=== PATIENT | male | born 1945 | race Caucasian/White ===

== ENCOUNTER → 2018-03-12 06:06 | Outpatient (CLI) | payer MEDICARE, BC, SELFPAY ==
--- NOTE | 2018-03-12 06:09 | ECHOD_ITS ---
Reason For Study: CAD Procedure This was a 2D Doppler, Color Flow transthoracic echocardiogram. Exam performed in department. Left Ventricle Normal LV size. The estimated ejection fraction is 35 %. Moderate segmental systolic dysfunction (see wall motion). Mid-Inferior: Akinetic. Infero-Basal: Akinetic. Posterior-Basal: Hypokinetic. Basal inferoseptal: Akinetic. Mid-inferoseptal : Hypokinetic. Inferior [place] : Akinetic. Right Ventricle Normal RV size. ICD or pacer leads identified within the right ventricle. Normal systolic function. Atria The left atrium is mildly enlarged. Normal right atrium. Mitral Valve There is mild to moderate mitral annular calcification. Mild focal mitral valve calcification. Mild (1+) eccentric mitral valve insufficiency. Tricuspid Valve Normal tricuspid valve. Mild (1+) tricuspid valve insufficiency. Pulmonary artery systolic pressure is 23 mmHg. Aortic Valve Normal aortic valve. Trisinus/trileaflet aortic valve. Pulmonic Valve Normal pulmonic valve. Great Vessels Normal aortic root. The pulmonary artery is normal size. Normal inferior vena cava. Pericardium/Pleural No pericardial effusion. MMode/2D Measurements & Calculations LVIDd: 5.5 cm IVSd: 1.2 cm Ao root diam: 3.0 cm LVIDs: 4.6 cm LVPWd: 0.72 cm LA dimension: 3.5 cm RVDd: 3.6 cm FS: 15.8 % LAV(MOD-bp): 71.6 ml EDV(MOD-sp4): 152.6 ml EDV(MOD-sp2): 129.1 ml LAV(MOD-bp) Indexed: 35.0 ml/m2 ESV(MOD-sp4): 89.2 ml EF(MOD-sp2): 9.5 % LAV(MOD-sp2): 57.4 ml EF(MOD-sp4): 41.5 % LAV(MOD-sp4): 76.8 ml SV(MOD-sp4): 63.3 ml SV(MOD-sp2): 12.3 ml LA A4 area: 23.8 cm2 RA A4 area: 20.4 cm2 Doppler Measurements & Calculations MV E max evan: 84.5 cm/sec Lat Peak E' Evan: 5.4 cm/sec Med Peak E' Evan: 5.9 cm/sec MV A max evan: 121.4 cm/sec E/E' lat: 15.7 E/E' med: 14.2 MV E/A: 0.70 Ao V2 max: 144.0 cm/sec LV V1 max: 119.4 cm/sec PA V2 max: 161.6 cm/sec Ao max P.3 mmHg LV V1 max P.7 mmHg TR max evan: 215.5 cm/sec TR max P.6 mmHg Interpretation Summary Normal LV size. The estimated ejection fraction is 35 %. Moderate segmental systolic dysfunction (see wall motion). The left atrium is mildly enlarged. Mild (1+) tricuspid valve insufficiency. Pulmonary artery systolic pressure is 23 mmHg. Compared to prior study, there is no significant change. Ordering Physician: Elias Parrish Referring Physician: Krissy Hussein M.D. Performed By: Miguelina Marie RDCS
--- NOTE | 2018-03-12 09:49 | STRESSREP ---
Stress Test Report Pharmacologic myocardial perfusion stress test. 73-year-old man with a history of coronary artery disease and cardiomyopathy status post ICD. Medications Coreg aspirin atorvastatin and lisinopril. Stress protocol: Resting EKG demonstrates sinus rhythm with a rate of 63 bpm first-degree AV block and incomplete right bundle branch block noted. 0.4 mg of regadenoson was infused per usual protocol followed by rapid intravenous and flush injection continuous EKG monitoring was performed. Patient maintained sinus rhythm throughout the recording. The maximum heart rate attained was 77 bpm which was 51% maximum predicted heart rate the maximum workload attained was 1 metabolic equivalent. At rest there were no ST or T-wave changes noted suggest abnormal flow reserve at peak infusion no ST or T-wave changes were noted suggest abnormal flow reserve. No clinical angina was noted. The resting blood pressure is 134/82 with a final blood pressure 142/80. Myocardial perfusion protocol. 11.9 mCi of technetium 99m sestamibi was injected at rest. 0.4 mg regadenoson was infused per usual protocol peak infusion 34.2 mCi of technetium 99m sestamibi was injected stress images were obtained stress and rest images were reconstructed and compared in the short axis vertical long and horizontal long axis. Gated images were also obtained Perfusion SPECT analysis: Review of the stress images demonstrate a dilated cardiac silhouette size. The anterior septum the anterior wall and anterolateral wall appear to be well perfused there is an extensive perfusion defect involving the entire inferior wall and inferior apical wall and inferior lateral wall. This is present on the stress and resting images to a similar extent suggesting a previous extensive inferior inferolateral and septal infarct. No reversibility is noted suggest ischemia. Gated SPECT analysis: The gated ejection fraction is 34% with severe hypokinesis of the inferior wall. Conclusion: Ischemic cardiomyopathy. Extensive previous inferior inferoseptal apical and lateral infarct noted. No ischemia noted.
== END ==
PROVIDERS: Family Provider Internal Medicine; PCP Internal Medicine; Visit Provider Internal Medicine Cardiovascular Disease
DX: I25.10 Atherosclerotic heart disease of native coronary artery without angina pectoris (principal); I25.5 Ischemic cardiomyopathy
CPT/HCPCS: 78452; 93017; 93306; A9500; A4216; J2785

== ENCOUNTER 2018-10-19 09:22 | Emergency (ER) | payer MEDICARE, BC, SELFPAY ==
[2018-10-19 09:25] VITALS: BP 155/84; PULSE 60; RESP 14; TEMP 36.1; O2SAT 98; BMI 28.4
--- NOTE | 2018-10-19 09:39 | ED.VISSUMM ---
- ER Visit Summary Date of Service: 10/19/18 Chief Complaint: Possible defibrillation firing History of Present Illness: The patient is a 73 M who presents with his defibrillator firing this morning. Patient states he was sitting on the edge of his bed this morning. Patient states he was feeling lightheaded and weird. Patient states he remembers waking up on the floor and his body was turned the other way. states the patient was diaphoretic when she went to get him off the floor. Patient denies any chest pain. Patient denies any shortness of breath. Patient denies any symptoms at the present time. Patient states that he called Dr. Parrish who referred him to the emergency department. Physical Examination: Vital signs are stable. Patient is afebrile. Patient is in no acute distress. Oral mucosa is pink and moist. Neck is supple. Trachea is midline. There is no JVD noted. Heart was regular rate and rhythm. Lungs are clear and equal bilaterally. There is good respiratory effort noted. Abdomen is soft. Bowel sounds are normal. There is no tenderness. Cranial nerves II through XII are intact. There are no focal motor or sensory deficits noted. The remaining physical exam was within normal limits. Test Results: CBC was essentially within normal limits. Electrolytes were normal. BUN and creatinine were slightly elevated at 21.45. Troponin was normal at 0.022. PA and lateral chest x-ray does not show any acute cardiopulmonary process. EKG showed a paced rhythm with a rate of 55. There is a first-degree AV block. There are no acute ST or T wave changes. Emergency Department Course and Treatment: Patient denied any complaints during his emergency department stay. The report from [place] was faxed and showed a run of V. tach at 197 and the patient had antitachycardia pacing delivered which converted the arrhythmia. The patient did not receive any defibrillation. Case was discussed with Dr. Parrish. He will follow-up with the patient and his office. Patient understood and was agreeable with the plan. All questions were answered. Disposition: Discharged home Impression: 1. Syncope 2. Cardiac dysrhythmia This note was generated with [employer] software. It may contain incorrect words, spelling, and punctuation that were not noted in review of the chart prior to signing ED Disposition - Plan for ED Patient: Disposition: Home or Assisted Living Chief Complaint: Chest Other Diagnosis: Cardiac dysrhythmia, Syncope Instructions: ED Dysrhythmia Unspecified Referrals: Krissy Hussein MD [Primary Care Provider] - Elias Parrish MD [STAFF PHYSICIAN] -
--- NOTE | 2018-10-19 09:43 | EKG12_ITS ---
Test Reason : CHEST OTHER Blood Pressure : / mmHG Vent. Rate : 055 BPM Atrial Rate : 055 BPM P-R Int : 374 ms QRS Dur : 146 ms QT Int : 426 ms P-R-T Axes : 000 012 202 degrees QTc Int : 407 ms AV dual-paced rhythm with prolonged AV conduction with occasional atrial-paced complexes Abnormal ECG Confirmed by NICOLE MIGUEL, MARY ALICE ([id number]), videotape editor THANG SOLIS ([id number]) on 10/22/2018 10:23:37 AM Referred By: ISIS Confirmed By:MARY ALICE RIVERA MD
--- NOTE | 2018-10-19 09:43 | RAD_ITS ---
STUDY: X-RAY CHEST REASON FOR EXAM: Male, 73 years old. Chest pain. TECHNIQUE: PA and lateral views of the chest. COMPARISON: Comparison is made with prior study dated August 24, 2017. FINDINGS: Limited inspiratory effort. Mild increased markings at the lung bases most likely secondary to impaired aeration. There is no demonstrated pleural abnormality. There is mild cardiac enlargement. A left-sided ICD is seen. Normal mediastinum and bee. Normal visualized pulmonary arteries. There is atherosclerotic calcification of the aortic arch with tortuosity. There are degenerative changes of the visualized thoracic spine. Normal visualized ribs, clavicles, and shoulders. There is no demonstrated abnormality of the visualized soft tissue structures of the upper abdomen. RAD/Chest PA and Lateral IMPRESSION: And penetration at both lung bases most likely secondary to poor inspiration. Electronically Signed: Jules Baer MD at 10:20 EST Tel [phone], Service support ,
--- NOTE | 2018-10-19 09:43 | ED.DCSUM_ITS ---
- ER Visit Summary Date of Service: 10/19/18 Chief Complaint: Possible defibrillation firing History of Present Illness: The patient is a 73 M who presents with his defibrillator firing this morning. Patient states he was sitting on the edge of his bed this morning. Patient states he was feeling lightheaded and weird. Patient states he remembers waking up on the floor and his body was turned the other way. states the patient was diaphoretic when she went to get him off the floor. Patient denies any chest pain. Patient denies any shortness of breath. Patient denies any symptoms at the present time. Patient states that he called Dr. Parrish who referred him to the emergency department. Physical Examination: Vital signs are stable. Patient is afebrile. Patient is in no acute distress. Oral mucosa is pink and moist. Neck is supple. Trachea is midline. There is no JVD noted. Heart was regular rate and rhythm. Lungs are clear and equal bilaterally. There is good respiratory effort noted. Abdomen is soft. Bowel sounds are normal. There is no tenderness. Cranial nerves II through XII are intact. There are no focal motor or sensory deficits noted. The remaining physical exam was within normal limits. Test Results: CBC was essentially within normal limits. Electrolytes were normal. BUN and creatinine were slightly elevated at 21.45. Troponin was normal at 0.022. PA and lateral chest x-ray does not show any acute cardio pulmonary process. EKG showed a paced rhythm with a rate of 55. There is a first-degree AV block. There are no acute ST or T wave changes. Emergency Department Course and Treatment: Patient denied any complaints during his emergency department stay. The report from [place] was faxed and showed a run of V. tach at 197 and the patient had antitachycardia pacing delivered which converted the arrhythmia. The patient did not receive any defibrillation. Case was discussed with Dr. Parrish. He will follow-up with the patient and his office. Patient understood and was agreeable with the plan. All questions were answered. Disposition: Discharged home Impression: 1. Syncope 2. Cardiac dysrhythmia This note was generated with [employer] software. It may contain incorrect words, spelling, and punctuation that were not noted in review of the chart prior to signing ED Disposition - Plan for ED Patient: Disposition: Home or Assisted Living Chief Complaint: Chest Other Diagnosis: Cardiac dysrhythmia, Syncope Instructions: ED Dysrhythmia Unspecified Referrals: Krissy Hussein MD [Primary Care Provider] - Elias Parrish MD [STAFF PHYSICIAN] -
[2018-10-19 09:50] VITALS: BP 144/88; PULSE 56; RESP 15; O2SAT 96
[2018-10-19 09:59] LABS: Absolute Lymphocyte Count 1.76 X10^3/ul (0.83-4.51); Absolute Neutrophil Count 3.4 X10^3/uL (2.0-7.7); Basophil# 0.05 X10^3/uL; Basophil% 0.8 % (0-1); Eosinophil# 0.28 X10^3/uL; Eosinophils% 4.7 % (0-5); Hematocrit 45.3 % (40-54); Hemoglobin 14.9 g/dl (13.0-16.5); Lymphocyte # 1.76 X10^3/ul (4.0); Lymphocyte % 29.2 % (19-41); Mean Corp Hgb Conc 32.9 g/gl (32-36); Mean Corpuscular Hgb 27.3 pg (27.0-32.0); Mean Platelet Vol. 9.7 fl (6.2-12.0); Monocyte% 8.3 % (0-10); Neutrophil # 3.42 X10^3/uL (2.7-7.7); Neutrophil % 56.8 % (47-70); POSITIVE COUNT NO; POSITIVE DIFFERENTIAL NO; POSITIVE MORPHOLOGY NO; Platelet Count 125 K/mm3 (150-450); RBC Distribution Width CV 14.8 % (11.6-14.6); Red Blood Count 5.46 M/mm3 (4.6-6.2)
[2018-10-19 10:24] LABS: Anion Gap 11 (5-15); BUN 20 mg/dL (7-18); BUN/Creat Ratio 13.8 RATIO (10-20); Calcium,Total 8.9 mg/dL (8.5-10.1); Chloride 106 mmol/L (98-107); Creatinine, Serum 1.45 mg/dL (0.70-1.30); EST Glomerular Filtration Rate 51 mL/min (>60); Est Glom Filt Rate - Afr Amer 62 mL/min (>60); Estimated Creatinine Clearance 46.73 ml/min; Glucose 211 mg/dL (74-106); Potassium 4.4 mmol/L (3.5-5.1); Sodium Level 139 mmol/L (136-145)
--- NOTE | 2018-10-19 10:32 | ED.RN ---
interrogated pacemaker and sent to [email or web address].
[2018-10-19 11:48] VITALS: BP 174/96; PULSE 74; RESP 16; O2SAT 93
== END 2018-10-19 11:57 | disposition home or self-care (01) ==
PROVIDERS: Emergency Provider Emergency Medicine; Family Provider Internal Medicine; PCP Internal Medicine
DX: R55 Syncope and collapse (principal); I49.9 Cardiac arrhythmia, unspecified; Z95.810 Presence of automatic (implantable) cardiac defibrillator; I10 Essential (primary) hypertension; E11.9 Type 2 diabetes mellitus without complications; Z79.82 Long term (current) use of aspirin; Z79.84 Long term (current) use of oral hypoglycemic drugs; Z79.899 Other long term (current) drug therapy
CPT/HCPCS: 71046; 80048; 84484; 85025; 93005; 99284; A4216

== ENCOUNTER → 2018-11-15 11:29 | Outpatient (CLI) | payer MEDICARE, BC, SELFPAY ==
[2018-11-15 10:34] VITALS: BMI 28.4
[2018-11-15 13:13] LABS: T4 Free Direct 0.92 ng/dL (0.76-1.46); Thyroid Stim Hormone (TSH) 1.58 uIU/mL (0.358-3.74)
== END ==
PROVIDERS: Family Provider Internal Medicine; PCP Internal Medicine; Visit Provider Physician Assistant Medical
DX: I49.9 Cardiac arrhythmia, unspecified (principal)
CPT/HCPCS: 36415; 84439; 84443

== ENCOUNTER → 2019-07-23 | Outpatient (CLI) | payer MEDICARE, BC, SELFPAY ==
[2019-04-04 11:43] VITALS: BMI 28.4
--- NOTE | 2019-07-23 15:06 | RAD_ITS ---
STUDY: X-RAY - LUMBAR SPINE REASON FOR EXAM: Male, 74 years old. Low back pain TECHNIQUE: 6 view(s) of the lumbar spine were obtained. COMPARISON: 2013 FINDINGS: There is straightening of the normal lumbar lordosis. There is no substantial scoliosis. There is a normal alignment of the vertebrae. There is diffuse demineralization with multi-level endplate spondylosis. There is multi-level degenerative disc disease with multi-level disc space narrowing. There is no demonstrated fracture. There is atherosclerotic calcification of the abdominal aorta without a demonstrated aneurysm. RAD/L/S Spine Min 4 Views IMPRESSION: Degenerative changes of the spine, as detailed above. Electronically Signed: Mariano Sandoval MD at 17:03 EDT , Service support ,
== END | disposition home or self-care (01) ==
LOC: HPRAD 15:01
PROVIDERS: Family Provider Internal Medicine; PCP Internal Medicine; Referring Provider Anesthesiology Pain Medicine; Visit Provider Anesthesiology Pain Medicine
DX: M46.96 Unspecified inflammatory spondylopathy, lumbar region (principal); M51.37 Other intervertebral disc degeneration, lumbosacral region; M51.26 Other intervertebral disc displacement, lumbar region; M54.17 Radiculopathy, lumbosacral region; M47.817 Spondylosis without myelopathy or radiculopathy, lumbosacral region
CPT/HCPCS: 72110

== ENCOUNTER 2019-10-21 05:13 | Day surgery (SDC) | payer MEDICARE, BC, SELFPAY ==
[2019-04-04 11:43] VITALS: BMI 28.4
--- NOTE | 2019-10-19 06:57 | PCM.HP.BLA ---
History and Physical Date of Admission: 10/21/19 HISTORY AND PHYSICAL ? Tc Smith 1945 ? REFERRING PHYSICIAN: ??Krissy Hussein MD ? CHIEF COMPLAINT: ??Consult (Consult Endo- hx of barretts) ? HPI: The patient is a 74 year old male referred for endoscopy. ?Tc notes a personal history of Gee's esophagus and is due for surveillance EGD.???He NOTES frequent hiccups as well as intermittent dysphagia with water, denies any issues with solid foods.??Patient denies any change in bowel habits, weight changes, blood in stools, black tarry stools or abdominal pain. ? ? Tc?has??undergone prior upper and lower?endoscopy?by Dr. Ellis 09/08/17 with findings of short segment Gee's esophagus, and normal colonoscopy. ? ? Patient's past medical history is significant for type 2 diabetes mellitus, ischemic cardiomyopathy, pacemaker placement, history of ND, hypertension. ?Patient follows with Dr. Hussein for his chronic medical conditions, and with Dr. Parrish in cardiology. He denies problems with sedation in the past. ? ? PAST MEDICAL HISTORY PAST MEDICAL HISTORY Diagnosis Date ? Acute myocardial infarction (HCC) 12/21/2005 ? status post ? Benign neoplasm of colon 09/21/2009 ? Calcaneal spur 06/16/2008 ? Cellulitis and abscess of unspecified site 09/15/2009 ? CORONARY ATHEROSCLER UNSPEC VESSEL ? ? Right coronary arter stent ? DIABETES MELLITUS TYPE II-UNCOMPL ? ? Hearing loss of both ears ? ? Heart attack (HCC) 2000 ? Hepatitis C antibody positive in blood 2018 ? Negative for Hepatitis C RNA ? HYPERLIPIDEMIA NEC/NOS ? ? HYPERTENSION NOS ? ? Ischemic cardiomyopathy ? ? Knee joint replacement by other means 02/11/2014 ? Lumbosacral radiculopathy ? ? Dr. Bobo managing ? Pacemaker ? ? pacemaker, defibrillator ? Prostate nodule 07/26/2012 ? Radiculopathy 07/18/2011 ? Residual foreign body in soft tissue 06/12/2007 ? Sacroiliac joint pain 05/20/2014 ? ? PAST SURGICAL HISTORY PAST SURGICAL HISTORY Procedure Laterality Date ? COLONOS W/REM POLYP SNARE ? ? polyp at 30cm ? COLONOSCOP W/ OR W/O [facility] SPEC ? 07/24/12 ? normal colon - follow up in 5 years ? COLONOSCOP W/ OR W/O [facility] SPEC ? 09/08/2017 ? Normal colonoscopy-10 yr follow up ? EGD W/O [facility] SPECIMEN W/BX ? 09/08/2017 ? Gee's esophagitis-repeat EGD in 2 years ? INJECTION ? 08/2019 ? Lumbar injections ? PAST SURGICAL HISTORY OF ? 1993 ? removal heel spur right foot ? PAST SURGICAL HISTORY OF ? 09/2005 ? pacemaker, AICD ? OR ANESTH,TOTAL KNEE ARTHROPLASTY Left 01/27/2014 ? Left TKA ? REMV CATARACT EXTRACAP,INSERT LENS ? 12/2005 left eye ? Cataract Removal ? REMV CATARACT EXTRACAP,INSERT LENS ? 2006 ? Cataract Extraction with PC IOL ?right eye ? REPAIR ING HERNIA,5+Y/O,REDUCIBL ? 1973 ? Hernia repair, inguinal ? TRANSCATH STENT INIT VESSEL,PERCUT ? ?x 2 [facility] ? Transcath stent init vessel percut ? ? ? Current Outpatient Medications: acarbose (PRECOSE) 25 mg tablet Take 25 mg by mouth daily with breakfast. metFORMIN (GLUCOPHAGE) 500 mg tablet Take 1,000 mg by mouth daily with breakfast. diclofenac, EC, (VOLTAREN) 50 mg EC tablet Take 1 tablet by mouth twice daily. aspirin, enteric coated (ASPIRIN, ENTERIC COATED) 81 mg EC tablet Take 1 tablet by mouth once daily. insulin glargine (LANTUS U-100 INSULIN) 100 unit/mL injection ? alogliptin (NESINA) 12.5 mg tab Take by mouth once daily. rosuvastatin (CRESTOR) 40 mg tablet Take 1 tablet by mouth once daily. empagliflozin (JARDIANCE) 25 mg tablet Take 1 tablet by mouth daily with breakfast. omeprazole (PRILOSEC) 20 mg capsule Take 1 capsule by mouth daily before breakfast. 1/2 hr before meal. melatonin 10 mg tab Take by mouth. Magnesium Oxide 420 mg tab Take by mouth. gabapentin (NEURONTIN) 300 mg capsule Take 300 mg by mouth three times daily. pyridoxine, vitamin B6, (VITAMIN B-6) 100 mg tablet Take 1 tablet by mouth once daily. lisinopril (PRINIVIL) 10 mg tablet Take 40 mg by mouth once daily. glipiZIDE (GLUCOTROL) 10 mg tablet Take 1 tablet by mouth twice daily. Cholecalciferol, Vitamin D3, 1,000 unit cap Take 1 capsule by mouth once daily. carvedilol (COREG) 25 mg tablet Take 1 tablet by mouth twice daily. blood sugar diagnostic(ASCENSIA CONTOUR STRIPS) testing one time daily MULTIVITAMIN TAB Take one(1) tablet daily. insulin aspart U-100 (NOVOLOG FLEXPEN U-100 INSULIN) 100 unit/mL inpn Taking 6 units with third meal of the day. acetaminophen (TYLENOL EXTRA STRENGTH) 500 mg tablet Take 2 tablets by mouth every 6 hours as needed for Pain. No current facility-administered medications for this visit.? ? ALLERGIES:?Elavil [Amitriptyline Hcl]; Topamax [Topiramate] ? PERSONAL HISTORY:?Social History ??Socioeconomic History ?Marital status: ?Spouse name: Kandi ?Number of children: 1 ?Years of education: Not on file ?Highest education level: Not on file ??Occupational History ?Occupation: BORDER PATROL AGENT ?Employer: [employer] ??Social Needs ?Financial resource strain: Not on file ?Food insecurity: ?Worry: Not on file ?Inability: Not on file ?Transportation needs: ?Medical: Not on file ?Non-medical: Not on file ??Tobacco Use ?Smoking status: Former Smoker ?Packs/day: 2.00 ?Years: 20.00 ?Pack years: 40 ?Types: Cigarettes ?Quit date: 09/27/1990 ?Years since quittin.0 ?Smokeless tobacco: Never Used ??Substance and Sexual Activity ?Alcohol use: Yes ?Comment: beer 12 each weekend in summer ?Drug use: No ?Sexual activity: Yes ?Partners: Female ??Lifestyle ?Physical activity: ?Days per week: Not on file ?Minutes per session: Not on file ?Stress: Not on file ??Relationships ?Social connections: ?Talks on phone: Not on file ?Gets together: Not on file ?Attends moravian service: Not on file ?Active member of club or organization: Not on file ?Attends meetings of clubs or organizations: Not on file ?Relationship status: Not on file ?Intimate partner violence: ?Fear of current or ex partner: Not on file ?Emotionally abused: Not on file ?Physically abused: Not on file ?Forced sexual activity: Not on file ??Other Topics ?Concerns: ? Service: Yes ?Blood Transfusions: Not Asked ?Caffeine Concern: Not Asked ?Occupational Exposure: Not Asked ?Hobby Hazards: Not Asked ?Sleep Concern: Not Asked ?Stress Concern: Not Asked ?Weight Concern: Not Asked ?Special Diet: Not Asked ?Back Care: Not Asked ?Exercise: Yes ?Bike Helmet: Not Asked ?Seat Belt: Not Asked ?Self-Exams: Not Asked ??Social History Narrative ?Not on file ?? ? FAMILY HISTORY:? FAMILY HISTORY FAMILY HISTORY Problem Relation Age of Onset ? Heart Mother ?pacemaker ? Cancer Father ?pancreatic ? REVIEW OF SYMPTOMS: ??The review of systems data was entered by the nurse and reviewed by me ? Nursing Notes: Vaishali Reid RN ?09/19/2019 ?1:29 PM ?Signed REVIEW OF SYSTEMS: ?General:???The patient denies fatigue, denies weight loss, denies weight gain, denies feeling hot, and denies feelings of cold. ?Eyes: ?The patient denies glaucoma, denies eye injury/surgery, wears glasses or contacts. ?Ear/Nose/Throat: ?The patient denies allergies, denies hayfever, denies ear infections, and denies bloody noses. ?Cardiovascular: ?The patient denies chest pain, notes heart disease, denies high blood pressure,notes cardiac stent, notes prior heart attack, denies irregular heart beat, denies high cholesterol, ?denies poor circulation, denies heart failure, other cardiac issues, denies claudication, denies cold feet, denies peripheral arterial stent. ?Respiratory: ?The patient denies tuberculosis, denies pneumonia, denies frequent cough, denies pulmonary embolism, notes shortness of breath, and denies coughing up blood. ?Gastrointestinal: ?The patient denies difficulty swallowing, denies acid reflux, denies ulcers, denies vomiting, denies jaundice/hepatitis, denies gallbladder problems, denies black or tarry stools, denies hemorrhoids, denies bleeding from rectum, denies diverticulitis, denies constipation, denies diarrhea, denies loss of stool control, and denies hernias. ?Kidney/Bladder: ?The patient denies kidney stones, denies urine infections, and denies bloody urine. ?Skin: ?The patient denies a history of skin cancer, denies bleeding/changing moles, and denies a history of skin rash. ?Neurologic: ?The patient denies a history of epilepsy/convulsions, denies headaches, denies head/spinal injuries, and denies stroke/TIA. ?Psychiatric: ?The patient denies psychiatric medications, denies depression, and denies voices, denies substance abuse. ?Endocrine: ?The patient denies thyroid disorders, notes diabetes, and denies hormonal problems. ?Hematologic: ?The patient denies a history of bruising, denies bleeding, and denies anemia, denies blood clots. ?Infections: ?The patient notes a history of measles and mumps, denies rheumatic fever, and denies sexually transmitted diseases. ?Musculoskeletal: ?The patient denies back pain/injury, notes back problems, denies sciatica, notes knee/foot trouble, denies arthritis, or denies gout. ? ? When was patient's last Mammogram screening? N/A ? ?Last Colonoscopy: ?2017 ? Vaishali Reid RN? I have confirmed and edited as necessary, the PFSH and ROS obtained by others. ? ? PHYSICAL EXAMINATION: ? General: ?The patient is 74 year old male, well nourished, well hydrated in no acute distress. ?The patient is oriented to time, place, and person. ? VITALS:?Blood pressure 116/64, pulse 64, temperature 36.7 ?C (98 ?F), temperature source Temporal Artery, height 175.3 cm (5' 9), weight 89.2 kg (196 lb 9.6 oz), SpO2 97 %.?Body mass index is 29.03 kg/m?.? ? HEENT: ?Normal cephalic, ataumatic, pupils are equally round, sclera are anicteric, mucous membranes are moist, oropharynx is clear. ?Neck has no masses, asymmetry or lymphadenopathy. ? ? Respiratory: ?Clear to auscultation and percussion. ?Normal respiratory excursion and pattern. ? Cardiac: ?Examination is regular rate and rhythm. ?Normal S1/S2 ? Abdominal exam: ?Soft, nontender, ?with no palpable masses. ?No hepatosplenomegaly. ?No palpable hernias. ? Extremities: ?no clubbing, cyanosis or edema. ?No adenopathy. ? LABORATORY VALUES: As Noted ? RADIOLOGIC STUDIES: ?As Noted ? ? Assessment ? IMPRESSION:?Gee's esophagus. ?Extensive cardiac history, pacemaker-plan for MAC ? PLAN: ?I have reviewed my findings with the surgeon. ?Will plan for upper?endoscopy. ??We discussed the risks and benefits of the planned endoscopy. ?I have informed the patient that complications can occur including failure to complete the endoscopy and perforation. ?The patient had the opportunity to ask questions concerning the planned endoscopy. ?My staff has also explained the procedure to the patient in understandable terms and has given the patient printed material concerning the procedure. ?The patient freely consents to surgery. ? The patient has medical comorbidities for which we will plan for the procedure to be performed under [facility]. ? ? 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 ? Niecy Weir PA-C
[2019-10-21] VITALS (7 sets, daily range): BP systolic 97–133; BP diastolic 57–78; PULSE 55–60; RESP 16; TEMP 36.4–36.9; O2SAT 16–98; BMI 28.6
--- NOTE | 2019-10-21 | IMM_PTH ---
PATIENT: VASHTI LIMA LOC: EN U#:[id number] AGE/SX: 74/M ROOM: RE10/21/[address]: Dr. John Ellis MD : 1945 BED: DIS: 10/21/2019 SPEC #: [id number] RECD: 10/23/19 09:06 STATUS: ULICES REQ #: [id number] CHIDI: 10/21/19 00:[address]: John Ellis DEPT: IMMUNOHISTOCHEMISTRY RECD BY: Janet Hanson ENTERED: 10/23/19 09:07 SP TYPE: IMMUNO OTHR DR: Dr. Krissy Hussein MD Tissues: A - Stomach, NOS Procedures: H Pylori (initial) PHYSICIAN & INSTITUTION [place] [id number] SPECIMEN INFORMATION: Tissue Source: A - Antrum biopsy Clinical Info: History Gee's Specimen Number: [id number] CPT code: 68839 METHODOLOGY: Deparaffinized sections of prefer/formalin-fixed tissue or PAP/DQ stained slides are incubated with monoclonal/polyclonal antibodies/oligonucleotide probes. Localization is made via biotin free immunoperoxidase method. Appropriate controls are performed and reacted as expected. Results on target cell population are indicated in the following table: RESULTS: ANTIBODY / CLONE RESULT Block A H Pylori (polyclonal) negative These tests were developed and their performance characteristics determined by [facility]. They may not have been cleared or approved by the U.S. Food and Drug Administration. The FDA has determined that such clearance or approval is not necessary. The above immunohistochemical/dualISH markers are ordered and reviewed by the Pathologist. INTERPRETATION: A. Antrum biopsy: Negative for Helicobacter pylori organisms. SJ:hetal 10/23/19
[2019-10-21 05:55] LABS: Bedside Glucose 109 mg/dL (70-110)
[2019-10-21] MEDS: Lactated Ringers 1,000 ML 100 ML IV (06:09)
--- NOTE | 2019-10-21 06:30 | EGD_PTH ---
PATIENT: VASHTI LIMA LOC: EN U#:[id number] AGE/SX: 74/M ROOM: RE10/21/[address]: Dr. John Ellis MD : 1945 BED: DIS: 10/21/2019 SPEC #: [id number] RECD: 10/21/19 08:53 STATUS: ULICES JOHN #: [id number] CHIDI: 10/21/19 06:[address]: John Ellis DEPT: SURGICAL PATHOLOGY RECD BY: Ashleigh Mishra ENTERED: 10/21/19 11:18 SP TYPE: EGD BIOPSY EDUARDO DR: Dr. Krissy Hussein MD Tissues: A - Gastric mucous membrane B - Esophagus, NOS C - Gastric mucous membrane Procedures: Surgery Specimen Level IV HEADER OPERATION: EGD ([facility] [place]) PRE-OP DIAGNOSIS: History Gee's TISSUE SUBMITTED: A. Antrum biopsy, B. Distal esophagus biopsy, C. 2 cm above GE junction MICROSCOPIC DIAGNOSIS A. Antrum, biopsy: Mild to moderate gastritis. See microscopic description and comment. B. Distal esophagus, biopsy: Fragments of gastroesophageal mucosa with mild to moderate chronic inflammation. Intestinal metaplasia (goblet cell metaplasia) is not identified. See comment. C. 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 Moderate chronic inflammation. Negative for dysplasia. See comment. SJ:hetal 10/22/19 COMMENT A. The results of immunohistochemistry for Helicobacter pylori will be reported separately ([id number]). B & C. Alcian blue/PAS stain with matched control is used in the evaluation of the specimen. Correlation with clinical, endoscopic findings and appropriate follow up are necessary. MICROSCOPIC DESCRIPTION Slides are reviewed. A. The specimen shows fragments of gastric mucosa with chronic inflammatory cell infiltrates in the lamina propria consisting of lymphocytes and plasma cells, consistent with mild to moderate chronic gastritis. GROSS DESCRIPTION A - Received in fixative is one container labeled with the patient's name and designated antrum biopsy. The specimen consists of two irregular fragments of light cazares soft tissue that in aggregate measure 0.4 x 0.3 x 0.1 cm. The specimen is totally submitted in one cassette. B - Received in fixative is one container labeled with the patient's name and designated distal esophagus biopsy. The specimen consists of two irregular fragments of light cazares soft tissue that in aggregate measure 0.5 x 0.3 x 0.1 cm. The specimen is totally submitted in one cassette. C - Received in fixative is one container labeled with the patient's name and designated 2 cm above GE junction. The specimen consists of multiple irregular fragments of light cazares soft tissue that in aggregate measure 0.8 x 0.3 x 0.1 cm. The specimen is totally submitted in one cassette. / SJ:rg 10/21/19 TC:3 CPT: 51912 x3, 15159 x2
--- NOTE | 2019-10-21 07:02 | OP.EGD_ITS ---
Patient Name: Tc Smith Procedure Date: 10/21/2019 6:10 AM Date of : 1945 Age: 74 Procedure: Upper GI endoscopy Indications: Follow-up of Gee's esophagus Providers: John Ellis MD Referring MD: Krissy Hussein Medicines: Monitored Anesthesia Care Patient Profile: This is a 74 year old male. Refer to note in patient chart for documentation of history and physical. Complications: No immediate complications. Procedure: Pre-Anesthesia Assessment: - Prior to the procedure, a History and Physical was performed, and patient medications and allergies were reviewed. The patient is competent. The risks and benefits of the procedure and the sedation options and risks were discussed with the patient. All questions were answered and informed consent was obtained. Patient identification and proposed procedure were verified by the physician, the nurse and the bisque ware dipper in the procedure room. Mental Status Examination: alert and oriented. Airway Examination: normal oropharyngeal airway and neck mobility. Respiratory Examination: clear to auscultation. CV Examination: normal. Prophylactic Antibiotics: The patient does not require prophylactic antibiotics. Prior Anticoagulants: The patient has taken no previous anticoagulant or antiplatelet agents. ASA Grade Assessment: II - A patient with mild systemic disease. After reviewing the risks and benefits, the patient was deemed in satisfactory condition to undergo the procedure. The anesthesia plan was to use moderate sedation / analgesia (conscious sedation). Immediately prior to administration of medications, the patient was re-assessed for adequacy to receive sedatives. The heart rate, respiratory rate, oxygen saturations, blood pressure, adequacy of pulmonary ventilation, and response to care were monitored throughout the procedure. The physical status of the patient was re-assessed after the procedure. After obtaining informed consent, the endoscope was passed under direct vision. Throughout the procedure, the patient's blood pressure, pulse, and oxygen saturations were monitored continuously. The gastroscope was introduced through the mouth, and advanced to the jejunum. The upper GI endoscopy was accomplished without difficulty. The patient tolerated the procedure well. Scope In: 6:38:09 AM Scope Out: 6:44:34 AM Total Procedure Duration Time 0 hours 6 minutes 25 seconds Findings: The examined jejunum was normal. The examined duodenum was normal. Scattered moderate inflammation characterized by erosions and erythema was found in the entire examined stomach. Biopsies were taken with a cold forceps for Helicobacter pylori testing using PyloriTek test. Biopsies were taken with a cold forceps for histology. The esophagus and gastroesophageal junction were examined with white light and narrow band imaging (NBI). There were esophageal mucosal changes consistent with short-segment Gee's esophagus. These changes involved the mucosa at the upper extent of the gastric folds (40 cm from the incisors) extending to the Z-line (39 cm from the incisors). [place]-colored mucosa was present and squamous islands were present. The maximum longitudinal extent of these esophageal mucosal changes was 2 cm in length. Mucosa was biopsied with a cold forceps for histology in a targeted manner at intervals of 1.5 cm in the lower third of the esophagus. A total of 2 specimen bottles were sent to pathology. Impression: - Normal examined jejunum. - Normal examined duodenum. - Gastritis. Biopsied. 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 Biopsied. Recommendation: - Await pathology results. - Return to my office in 1 week. - Discharge patient to home. - Resume previous diet. - Continue present medications. Procedure Code(s): --- Professional --- 84760, Esophagogastroduodenoscopy, flexible, transoral; with biopsy, single or multiple CPT copyright 2017 [employer]. All rights reserved. The codes documented in this report are preliminary and upon special technical operations officer review may be revised to meet current compliance requirements. John Ellis MD 10/21/2019 7:01:44 AM This report has been signed electronically. Number of Addenda: 0 Note Initiated On: 10/21/2019 6:10 AM
== END 2019-10-21 07:28 | disposition home or self-care (01) ==
LOC: EN 05:14 → AC 05:18
PROVIDERS: Family Provider Internal Medicine; PCP Internal Medicine; Referring Provider Internal Medicine; Visit Provider Surgery
PROC: 0DJ08ZZ Inspection of Upper Intestinal Tract, Via Natural or Artificial Opening Endoscopic (ICD-10-PCS; CPT 43235; principal; 2019-10-21 06:25)
DX: K22.70 Barrett's esophagus without dysplasia (principal); K21.0 Gastro-esophageal reflux disease with esophagitis; K29.70 Gastritis, unspecified, without bleeding; R13.10 Dysphagia, unspecified; E11.65 Type 2 diabetes mellitus with hyperglycemia; E11.40 Type 2 diabetes mellitus with diabetic neuropathy, unspecified; I25.5 Ischemic cardiomyopathy; I10 Essential (primary) hypertension; E78.5 Hyperlipidemia, unspecified; M54.17 Radiculopathy, lumbosacral region; N40.2 Nodular prostate without lower urinary tract symptoms; Z79.82 Long term (current) use of aspirin; Z79.4 Long term (current) use of insulin; Z79.899 Other long term (current) drug therapy; I25.2 Old myocardial infarction; Z87.891 Personal history of nicotine dependence; Z95.5 Presence of coronary angioplasty implant and graft; Z95.810 Presence of automatic (implantable) cardiac defibrillator; Z96.652 Presence of left artificial knee joint
CPT/HCPCS: 43239; 82962; 88305; 88342; J7120; J2405

== ENCOUNTER → 2021-01-13 06:16 | Outpatient (CLI) | payer MEDICARE, BC, SELFPAY ==
[2021-01-07 13:35] VITALS: BMI 28.0
--- NOTE | 2021-01-13 09:00 | STRESSREP ---
Stress Test Report Pharmacologic myocardial perfusion stress test. 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 Stress protocol: Resting EKG demonstrates normal sinus rhythm with a first-degree AV block and left bundle branch block pattern. Rate of 71 bpm. Resting blood pressure is 1 and 38/70 6 mmHg. 0.4 mg of regadenoson was infused per usual protocol followed by rapid intravenous saline flush injection continuous EKG monitoring was performed. At rest there were no ST or T wave changes noted to suggest abnormal flow reserve at peak infusion nonspecific ST-T wave changes were noted with no meet the criteria for ischemia. The final blood pressure was 126/70 mmHg. Myocardial perfusion protocol. 11.6 mCi of technetium 99m sestamibi was injected at rest. 0.4 mg of regadenoson was infused per usual protocol. At peak infusion 34.2 mCi of technetium 99m sestamibi was injected stress images were obtained stress and rest images were reconstructed and compared in the short axis vertical and horizontal long axis. Gated images were also obtained Perfusion SPECT analysis: Review of the stress images demonstrate normal perfusion in the anterior wall as well as the anterior septal wall and the anterior lateral wall. The entire inferior wall extending to the apex has a large perfusion defect. This is present on the stress images as well as the resting images. There is no improvement to suggest an area of ischemia the above is suggestive of an extensive previous inferior and inferior apical infarct extending to the inferior septal and inferolateral zones. Gated SPECT analysis: The gated ejection fraction is 13% with an akinetic inferior wall. Conclusion: Pharmacologic stress test with large previous inferior, inferoseptal, inferolateral and inferoapical infarct. No ischemia noted, Ischemic cardiomyopathy present.
== END ==
PROVIDERS: PCP Internal Medicine; Referring Provider Internal Medicine Cardiovascular Disease; Visit Provider Internal Medicine Cardiovascular Disease
DX: I25.10 Atherosclerotic heart disease of native coronary artery without angina pectoris (principal); Z95.5 Presence of coronary angioplasty implant and graft
CPT/HCPCS: 78452; 93017; A9500; A4216; J2785

== ENCOUNTER → 2021-09-15 12:51 | Outpatient (CLI) | payer MEDICARE, BC, SELFPAY ==
--- NOTE | 2021-09-15 12:54 | ECHOD_ITS ---
Reason For Study: CHF Procedure This was a 2D Doppler, Color Flow transthoracic echocardiogram. Exam performed in department. Left Ventricle Normal LV size. Moderate eccentric left ventricular hypertrophy. The estimated ejection fraction is 37 %. Moderate segmental systolic dysfunction (see wall motion). Mid-Posterior: Akinetic. Mid- Inferior: Akinetic. Carlotta : Severely Hypokinetic. Infero-Basal: Akinetic. Posterior-Basal: Akinetic. Right Ventricle Normal RV size. ICD or pacer leads identified within the right ventricle. Normal systolic function. Atria Normal left atrium. Normal right atrium. Mitral Valve Normal mitral valve. Mild-Moderate (1-2+) eccentric mitral valve insufficiency. Tricuspid Valve Normal tricuspid valve. Aortic Valve Normal aortic valve. Trisinus/trileaflet aortic valve. Pulmonic Valve Normal pulmonic valve. Great Vessels Normal aortic root. The pulmonary artery is normal size. Normal inferior vena cava. Pericardium/Pleural No pericardial effusion. MMode/2D Measurements & Calculations LVIDd: 5.7 cm IVSd: 1.6 cm LA dimension: 4.2 cm LVIDs: 5.1 cm LVPWd: 0.77 cm FS: 11.0 % LAV(MOD-bp): 58.7 ml LVAd ap4: 36.9 cm2 SV(MOD-sp4): 49.6 ml LAV(MOD-bp) Indexed: 29.3 ml/m2 LVLd ap4: 8.1 cm LAV(MOD-sp2): 62.6 ml EDV(MOD-sp4): 135.5 ml LAV(MOD-sp4): 54.1 ml EDV(sp4-el): 142.9 ml LVAs ap4: 28.5 cm2 LVLs ap4: 7.7 cm ESV(MOD-sp4): 86.0 ml ESV(sp4-el): 88.9 ml EF(MOD-sp4): 36.6 % EF(sp4-el): 37.8 % SV(sp4-el): 54.0 ml LA A4 area: 18.6 cm2 RA A4 area: 12.1 cm2 Time Measurements MV dec time: 0.20 sec Doppler Measurements & Calculations MV E max evan: 84.2 cm/sec Lat Peak E' Evan: 4.1 cm/sec Med Peak E' Evan: 3.4 cm/sec MV A max evan: 130.0 cm/sec E/E' lat: 20.4 E/E' med: 24.8 MV E/A: 0.65 MV V2 max: 154.1 cm/sec MV P1/2t max evan: 102.1 cm/sec Ao V2 max: 103.1 cm/sec MV max P.5 mmHg MV P1/2t: 74.6 msec Ao max P.3 mmHg MV V2 mean: 86.8 cm/sec MV mean P.6 mmHg MV dec slope: 401.0 cm/sec2 MV V2 VTI: 31.0 cm MVA(P1/2t): 3.0 cm2 LV V1 max: 90.3 cm/sec MR max evan: 470.4 cm/sec PA V2 max: 131.0 cm/sec LV V1 max P.3 mmHg MR max P.5 mmHg MR mean evan: 373.3 cm/sec MR mean P.6 mmHg MR VTI: 202.3 cm TR max evan: 248.9 cm/sec TR max P.8 mmHg ECHO/Echo Complete Interpretation Summary Normal LV size. The estimated ejection fraction is 37 %. Moderate segmental systolic dysfunction (see wall motion). Moderate eccentric left ventricular hypertrophy. Mild-Moderate (1-2+) eccentric mitral valve insufficiency. Compared to previous study, the left ventricular systolic function is the same. . Ordering Physician: Melia White Referring Physician: Krissy Hussein M.D. Performed By: Huber Pineda RCS
== END ==
PROVIDERS: PCP Internal Medicine; Referring Provider Physician Assistant Medical; Visit Provider Physician Assistant Medical
DX: I25.10 Atherosclerotic heart disease of native coronary artery without angina pectoris (principal)
CPT/HCPCS: 93306

== ENCOUNTER 2022-02-02 08:38 | Outpatient (CLI) | payer MEDICARE, BC, SELFPAY ==
[2022-02-02 09:36] LABS: Anion Gap 6 (5-15); BUN 37 mg/dL (7-18); BUN/Creat Ratio 20.8 RATIO (10-20); Calcium,Total 9.4 mg/dL (8.5-10.1); Chloride 102 mmol/L (98-107); Creatinine, Serum 1.78 mg/dL (0.70-1.30); EST Glomerular Filtration Rate 40 mL/min (>60); Est Glom Filt Rate - Afr Amer 48 mL/min (>60); Glucose 167 mg/dL (74-106); Potassium 4.8 mmol/L (3.5-5.1); Sodium Level 136 mmol/L (136-145)
== END 2022-02-02 23:59 | disposition home or self-care (01) ==
LOC: LAB 08:41
PROVIDERS: PCP Internal Medicine; Referring Provider Physician Assistant Medical; Visit Provider Physician Assistant Medical
DX: R06.09 Other forms of dyspnea (principal)
CPT/HCPCS: 36415; 80048

== ENCOUNTER 2022-02-07 01:45 | Inpatient (IN) | payer MEDICARE, BC, SELFPAY ==
[2022-02-07] VITALS (35 sets, daily range): BP systolic 80–123; BP diastolic 50–91; PULSE 73–121; RESP 15–26; TEMP 36.3–37.3; O2SAT 90–96; BMI 25.9; BMI 26.8
--- NOTE | 2022-02-07 02:42 | RAD_ITS ---
EXAM: XR RIGHT SHOULDER COMPLETE, 2 OR MORE VIEWS CLINICAL INDICATION: pain pain TECHNIQUE: Two or more views of the right shoulder. This report was created using GoFish report generation technology. COMPARISON: None. 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 Hardware appears to be intact without evidence for loosening. No acute fracture. No subluxation. Normal alignment. Preservation of the joint space. No sclerotic or destructive changes observed. SOFT TISSUES: Unremarkable. No soft tissue swelling or gas. No radiopaque foreign body. RAD/Shoulder min 2 Views IMPRESSION: Intact right shoulder prosthesis. No demonstrated fracture, dislocation, or destructive osseous lesion. Electronically Signed: Cliff Cortez MD at 4:23 EDT Reading Location ID and State: [facility] / [place] , Service support ,
--- NOTE | 2022-02-07 02:42 | EKG12_ITS ---
Test Reason : WEAKNESS Blood Pressure : / mmHG Vent. Rate : 118 BPM Atrial Rate : 118 BPM P-R Int : 000 ms QRS Dur : 198 ms QT Int : 418 ms P-R-T Axes : 000 081 -84 degrees QTc Int : 585 ms Undetermined rhythm : Consider accelerated junctional rhythm Right bundle branch block Inferior infarct , age undetermined , cannot be excluded Abnormal ECG Confirmed by MALLORY MIGUEL, ANDREY ([id number]), state editor ISSA MICHELE ([id number]) on 02/10/2022 10:10:02 AM Referred By: ERIN Confirmed By:ANDREY TEJADA MD
--- NOTE | 2022-02-07 02:42 | CT_ITS ---
STUDY: CT ABDOMEN AND PELVIS WITH CONTRAST REASON FOR EXAM: Male, 76 years old. abd pain RADIATION DOSAGE (If Supplied By Facility): CTDIvol = ( 17.25 ) mGy, DLP = ( 1307.33 ) mGycm TECHNIQUE: Transaxial images were obtained from the dome of the diaphragm to the symphysis pubis without oral contrast. IV 100mL Isovue-300 was administered. Sagittal and coronal images were reconstructed. Individualized dose optimization techniques were used for this CT. COMPARISON: None. FINDINGS: The visualized lung bases demonstrate a tiny right middle lobe nodule measuring 5 mm.. The visualized portions of the heart demonstrates scattered coronary artery calcifications. There is an AICD from a left subclavian approach. Normal liver. Gallbladder is mildly distended. Normal appearing common bile duct. Normal spleen. Normal pancreas. Normal bilateral adrenal glands. Normal right kidney. Normal left kidney. There is a small hiatal hernia. Normal small intestine. Normal colon. The appendix is visualized and appears normal. There is diffuse atherosclerotic calcification of the abdominal aorta, without a demonstrated aneurysm. Normal inferior vena cava. Normal retroperitoneum. Normal urinary bladder. Normal abdominal wall. There are diffuse degenerative changes of the visualized lumbar spine. CT/Abdomen/Pelvis W IV Cont ONLY IMPRESSION: Negative enhanced CT of the abdomen and pelvis for acute intra-abdominal abnormality. Normal appendix. No ureteral calculus. Electronically Signed: Sam Menard MD at 3:50 EDT ,
[2022-02-07] MEDS: Ondansetron 4 MG/2 ML Vial IV ×3 (02:49→13:52)
[2022-02-07] MEDS: Morphine 4 MG/ML Syringe IV (02:49)
[2022-02-07 03:05] LABS: Mucous, Urine 0 SEEN /hpf (<or=2+); Red Blood Cells-Urine 0 SEEN /hpf (0-5); Squamous Epithelial Cells - UA 0 SEEN /hpf (0-5); White Blood Cells 0 SEEN /hpf (0-5)
[2022-02-07 03:07] LABS: Absolute Lymphocyte Count 1.23 X10^3/uL (0.83-4.51); Absolute Neutrophil Count 13.2 X10^3/uL (2.0-7.7); Basophil# 0.03 X10^3/uL; Basophil% 0.2 % (0-1); Hematocrit 39.6 % (40-54); Lymphocyte # 1.23 X10^3/ul (0.83-4.51); Lymphocyte % 7.5 % (19-41); Mean Corp Hgb Conc 32.8 g/dL (32-36); Mean Corpuscular Volume 79.2 fL (80-94); Mean Platelet Vol. 9.8 fl (6.2-12.0); Monocyte# 1.83 X10^3/uL; Monocyte% 11.1 % (0-10); NRBC Flagged by Analyzer 0 % (0-5); Neutrophil # 13.21 X10^3/uL (2.7-7.7); Neutrophil % 80.3 % (47-70); POSITIVE DIFFERENTIAL YES; Platelet Count 178 K/mm3 (150-450); RBC Distribution Width CV 15.7 % (11.6-14.6); White Blood Count 16.4 K/mm3 (4.4-11.0)
[2022-02-07 03:08] LABS: Color, Urine Yellow (Yellow); Glucose, Dipstick 1000 mg/dl (Normal); Ketone-Dipstick Negative (Negative); Leukocyte Esterase-Dipstick Negative /ul (Negative); Nitrite-Dipstick Negative (Negative); Occult Blood-Urine 10 /ul (Negative); Protein-Dipstick 30 mg/dl (Negative); Urine Clarity Clear (Clear); Urine Urobilinogen 1 mg/dl (Normal)
[2022-02-07 03:15] LABS: Differential Indicated SCAN CRITERIA MET
[2022-02-07 03:15] LABS: Bacteria 1+ /hpf (None Seen); Urine Bilirubin Dipstick 1 mg/dL (Negative)
[2022-02-07 03:23] LABS: AST(SGOT) 251 U/L (15-37); Alanine Aminotransfer ALT/SGPT 328 U/L (16-61); Albumin, Serum 3.2 g/dL (3.2-5.0); Alkaline Phosphatase 216 U/L (45-117); Anion Gap 10 (5-15); BUN 27 mg/dL (7-18); BUN/Creat Ratio 13.4 RATIO (10-20); Calcium,Total 9.2 mg/dL (8.5-10.1); Chloride 101 mmol/L (98-107); Creatinine, Serum 2.02 mg/dL (0.70-1.30); EST Glomerular Filtration Rate 34 mL/min (>60); Est Glom Filt Rate - Afr Amer 42 mL/min (>60); Estimated Creatinine Clearance 32.08 ml/min; Globulin 4.7 g/dL (2.2-4.2); Glucose 266 mg/dL (74-106); Lipase 1097 U/L (73-393); Potassium 4.5 mmol/L (3.5-5.1); Protein, Total 7.9 g/dL (6.4-8.2); Sodium Level 134 mmol/L (136-145); Troponin-I HS 44 pg/mL (3.0-78.0)
[2022-02-07 03:28] LABS: Anisocytosis 1+
--- NOTE | 2022-02-07 03:30 | RAD_ITS ---
EXAM: XR CHEST, 1 VIEW CLINICAL INDICATION: syncope syncope TECHNIQUE: Frontal view of the chest. This report was created using [employer] report generation technology. COMPARISON: None. FINDINGS: LUNGS AND PLEURAL SPACES: Unremarkable. No consolidation or edema. No pneumothorax. No effusion. HEART: The heart is mildly enlarged. MEDIASTINUM: Central airways and mediastinal contour are unremarkable. BONES/JOINTS: There is a right shoulder prosthesis. There are multilevel degenerative changes in the visualized spine. SOFT TISSUES: Unremarkable. VASCULATURE: There is atherosclerotic calcification of the aortic arch. TUBES, LINES AND DEVICES: There is an atrial-bilateral ventricular pacemaker/defibrillator. RAD/Chest 1 View (Portable) IMPRESSION: 1. Mild cardiomegaly. Pacemaker. 2. No evidence for acute cardiopulmonary pathology. Electronically Signed: Cliff Cortez MD at 4:30 EDT Reading Location ID and State: [facility] / [place] , Service support ,
[2022-02-07] MEDS: Piperacil/Tazobactam 3.375 GM/50 ML ML IV ×3 (03:59→21:50)
[2022-02-07] MEDS: 0.9% Normal Saline 1,000 ML 999 ML IV (04:36)
--- NOTE | 2022-02-07 04:48 | US_ITS ---
STUDY: ABDOMINAL ULTRASOUND - RIGHT UPPER QUADRANT REASON FOR VISIT: Male, 76 years old RUQ pain TECHNIQUE: Ultrasound evaluation of the right upper quadrant was performed with real-time and static vega-scale imaging. TECHNICAL QUALITY: Adequate. COMPARISON: CT abdomen/pelvis from same day. FINDINGS: Liver: The liver measures 15.9 cm. There is increased echogenicity consistent with fatty infiltration. The bile ducts are within normal limits. There is hepatic color flow. The direction of portal flow is hepatopetal. There is no demonstrated mass lesion. Gallbladder: There is a distended gallbladder. The gallbladder wall measures 6 mm. There is a positive sonographic King''s sign. There is trace pericholecystic fluid. There is biliary sludge dependent within the gallbladder. Common Bile Duct (C.B.D.): The common bile duct measures 8 mm. Pancreas: Pancreas is nonvisualized due to overlying bowel gas. Right Kidney: Normal size of the right kidney. The right kidney measures 11.8 x 6 x 5.2 cm. Normal renal cortex. The right cortex measures 1.4 cm. There is no demonstrated renal mass or cyst. There is no right hydronephrosis. US/Gallbladder IMPRESSION: Gallbladder sludge with distended gallbladder and gallbladder wall thickening and trace pericholecystic fluid with also positive sonographic King''s sign. Findings concerning for underlying cholecystitis. Electronically Signed: Sam Menard MD at 6:22 EDT ,
--- NOTE | 2022-02-07 05:08 | EDS_ITS ---
HPI History of Present Illness Chief Complaint: Weakness Narrative Narrative: Patient is a 76-year-old male with past medical history of coronary artery disease and previous CA as well as angioplasty with stent placement. He states he had his right shoulder replaced in November 2021. He reports he has been doing well but that today he began with abdominal pain located mainly in the upper mid abdomen. With this he has been feeling nauseous and has not been eating or drinking well. He states that he does get around with a walker and this evening was trying to walk to the bathroom when he had an overwhelming sensation of weakness which he believes was secondary to his abdominal pain and lowered himself to the ground. Patient states that he did not strike his head and he is unsure if he had any LOC. states she was with him at the time and did not notice any loss of consciousness. She states that she could not get him up however and because of his abdominal pain thought it was in his best interest to come to the hospital for further evaluation. [facility] Medical History (Updated 02/07/22 @ 08:[address] Jin Erazo, ) Atherosclerotic heart disease of [place] coronary artery without angina pectoris Ischemic cardiomyopathy Old inferior wall myocardial infarction Pure hypercholesterolemia Sustained ventricular tachycardia (09/2018) Type 2 diabetes mellitus Home Medications carvedilol 25 mg PO BID 09/04/17 [History Last Taken 09/21/17] multivitamin 1 ea PO DAILY 09/04/17 [History Last Taken Unknown] cholecalciferol (vitamin D3) 50 mcg (2,000 unit) capsule 3,000 unit PO QDAY cap 02/15/18 [History Last Taken Unknown] lisinopril 40 mg tablet 40 mg PO QDAY 02/15/18 [History Last Taken Unknown] melatonin 5 mg capsule 10 mg PO QHS ea 02/15/18 [History Last Taken Unknown] gabapentin 400 mg capsule 600 mg PO BID cap 04/04/19 [History Last Taken Unknown] magnesium oxide 420 mg PO DAILY 10/18/19 [History Last Taken Unknown] omeprazole 40 mg PO DAILY 10/18/19 [History Last Taken Unknown] rosuvastatin 40 mg PO QHS 10/18/19 [History Last Taken Unknown] aspirin 81 mg tablet,delayed release 81 mg PO DAILY 10/22/19 [History Last Taken Unknown] empagliflozin 25 mg tablet 25 mg PO DAILY 10/22/19 [History Last Taken Unknown] insulin glargine 100 unit/mL subcutaneous solution 25 unit SC DAILY ml 06/04/20 [History Last Taken Unknown] metformin 500 mg tablet 500 mg PO BID tab 06/04/20 [History Last Taken Unknown] pyridoxine (vitamin B6) 100 mg tablet 100 mg PO DAILY 01/19/22 [History Last Taken Unknown] liraglutide [Victoza 2-Juan] 1.8 mg SUBCUT DAILY 02/07/22 [History Last Taken Unknown] Allergy/AdvReac Type Severity Reaction Status Date / Time amitriptyline Allergy Unknown Verified 02/07/22 01:50 carisoprodol Allergy Unknown Verified 02/07/22 01:50 ibuprofen [From Advil] Allergy HYPERTENSIO Verified 02/07/22 01:50 N etodolac AdvReac Diarrhea Verified 02/07/22 01:50 furosemide AdvReac DIZZY Verified 02/07/22 01:50 meloxicam [From Mobic] AdvReac Unknown Verified 02/07/22 01:50 topiramate AdvReac Other Verified 02/07/22 01:50 Family History Father , age 75 pancreatic cancer Pancreatic cancer Mother , Age 99. Cardiac pacemaker in situ Sister , age 67 from CVA CVA (cerebral vascular accident) Surgical History (Updated 02/07/22 @ 05:[address] Mellisa Oneil MD) History of coronary artery stent placement (03/08/01) History of implantable cardiac defibrillator (ICD) (09/21/17) History of left knee replacement (2013) History of right knee joint replacement (11/2019) Hx of cataract extraction Hx of shoulder replacement Hx of shoulder surgery lumbar nerve ablation (04/2020) S/P herniorrhaphy Social History (Updated 02/07/22 @ 05:[address] Mellisa Oneil MD) household members: spouse Smoking Status: Former smoker pack-years: 40 how long ago did patient quit smoking: Quit 09/27/1990, smoked 2 ppd x 20 years alcohol intake: current alcohol intake frequency: a few times a month substance use type: does not use ROS ROS ED Constitutional Constitutional ED: Denies chills or fever(s) ENT ENT ED: Denies sore throat Cardiovascular Cardiovascular: Denies chest pain or palpitations Respiratory/Chest Respiratory/Chest: Denies cough or dyspnea Gastrointestinal Gastrointestinal: Reports abdominal pain and nausea; Denies constipation, diarrhea or vomiting Genitourinary Genitourinary ED: Denies dysuria Musculoskeletal Musculoskeletal: Reports other Details: Positive right shoulder pain ; Denies myalgias Integumentary Denies rash Neurologic Neurologic: Reports weakness; Denies headache(s) Hematologic/Lymphatic Hematologic/Lymphatic: Denies easy bleeding or easy bruising EXAM Physical Exam Const Vital Signs: 02/07/22 01:46 02/07/22 03:38 02/07/22 03:46 Temperature 97.4 F L Temperature Source Temporal Pulse Rate 87 112 H Pulse Rate [Lying] 113 H Pulse Rate [Sitting (for 1 minute prior to obtaining)] 78 Respiratory Rate 16 20 H Blood Pressure 123/76 H 85/65 L Blood Pressure [Lying] 95/53 L Blood Pressure [Sitting (for 1 minute prior to obtaining)] 80/50 L Blood Pressure Mean 91 71 Blood Pressure Mean [Lying] 67 Blood Pressure Mean [Sitting (for 1 minute prior to obtaining)] 60 Pulse Ox 95 93 Oxygen Delivery Method Room Air Room Air 02/07/22 04:37 02/07/22 05:21 02/07/22 06:10 Temperature Temperature Source Pulse Rate 121 H 120 H Pulse Rate [Lying] Pulse Rate [Sitting (for 1 minute prior to obtaining)] Respiratory Rate 18 17 18 Blood Pressure 83/69 L 93/78 104/71 Blood Pressure [Lying] Blood Pressure [Sitting (for 1 minute prior to obtaining)] Blood Pressure Mean 73 83 82 Blood Pressure Mean [Lying] Blood Pressure Mean [Sitting (for 1 minute prior to obtaining)] Pulse Ox 96 95 95 Oxygen Delivery Method Room Air Room Air Room Air 02/07/22 06:45 02/07/22 08:13 Temperature Temperature Source Pulse Rate 115 H 110 H Pulse Rate [Lying] Pulse Rate [Sitting (for 1 minute prior to obtaining)] Respiratory Rate 18 18 Blood Pressure 87/65 L 93/70 Blood Pressure [Lying] Blood Pressure [Sitting (for 1 minute prior to obtaining)] Blood Pressure Mean 72 77 Blood Pressure Mean [Lying] Blood Pressure Mean [Sitting (for 1 minute prior to obtaining)] Pulse Ox 95 96 Oxygen Delivery Method Room Air Room Air Positive well nourished and well developed General Appearance ED: well developed HEENT Reports dry mucous membranes HEENT Narrative: No signs of depressed or basilar skull fracture Mouth ED: Yes dry mucous membranes Mouth: dry mucous membranes Eyes PERRL and EOMs intact bilaterally General Eye ED: Negative for scleral icterus Neck supple Neck Narrative: No bony deformity or step-off of the cervical spine no midline pain on palpation Chest Wall palpation of chest normal Resp normal respiratory effort and clear to auscultation bilaterally Cardio regular rate and regular rhythm GI non-distended GI Narrative: Abdomen is soft and nondistended with normoactive bowel sounds. There is pain with palpation in the right upper quadrant and midepigastric region with voluntary guarding at the site. No pulsatile mass or fluid wave noted Auscultation: normoactive bowel sounds Palpation: soft Extremity normal to inspection Extremity Narrative: Pelvis is stable there is no shortening or external rotation of either lower extremity and patient can lift both lower extremities without difficulty. Patient has postoperative changes to his right shoulder noted however the incision is clean dry and intact without any obvious bony deformity or joint effusion. Neuro oriented x3 and CN's II-XII intact bilaterally Neuro Narrative: NIH stroke scale score of 0 Sensorium / Orientation: alert Motor Exam: strength 5/5 throughout Psych mental status grossly normal Skin no rashes or lesions noted Skin Narrative: Skin turgor is increased General Skin Exam: Negative for jaundice MDM MDM MDM Narrative Medical decision making narrative: Patient to ER afebrile and normotensive. He reported he was weak and fell but he did this because of his abdominal pain. He denies any signs of trauma to his head nor did he deny blood thinner use I felt no need for head CT. Because he kept reporting spasmy pain and right upper quadrant midepigastric pain I did elect to perform a CT scan at this time. CT scan showed no acute findings but the patient's labs revealed elevated liver enzymes as well as lipase concerning for gallstone pancreatitis. His pressure began to drop and he does have an elevated white count so he was started on Zosyn with concern for infection. He was given 3 L of fluid and his pressure did improve however after fluids were finished his pressure began to fall once again. I attempted to place a central line at this time and I was able to cannulate the vessel twice but unable to thread the guidewire. After 2 there attempts I could not get a left IJ line placed and at that time elected to withhold the central line as pressures have remained with a MAP above 65. The case was discussed with GI who did request possible MRCP if able. 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 Therefore I do not feel we have time for that based on his worsening symptoms and informed GI of this event. They state they will plan on taking him for an ERCP. medicine does agree to admit the patient at this time. I also discussed the case with general surgery who feels that medicine and GI need to take the lead and they can be on backup once they have completed their necessary treatments. Therefore at this time because of the patient's persistent pain elevated liver enzymes and developing hypotension he will be admitted to the ICU for further care Lab Data Attestation: I reviewed the patient's lab results. Labs: Laboratory Results - last 24 hr 02/07/22 02/07/22 02/07/22 02:21 02:21 02:50 WBC 16.4 H RBC 5.00 Hgb 13.0 Hct 39.6 L MCV 79.2 L MCH 26.0 L MCHC 32.8 RDW Std Deviation 45.0 H RDW Coeff of Pee 15.7 H Plt Count 178 MPV 9.8 Immature Gran % (Auto) 0.900 Neut % (Auto) 80.3 H Lymph % (Auto) 7.5 L Brantley % (Auto) 11.1 H Eos % (Auto) 0.0 Baso % (Auto) 0.2 Absolute Neuts (auto) 13.2 H Absolute Lymphs (auto) 1.23 Nucleated RBC % 0 Diff Path Review May foll Anisocytosis 1+ Sodium 134 L Potassium 4.5 Chloride 101 Carbon Dioxide 23.0 Anion Gap 10 BUN 27 H Creatinine 2.02 H Estim Creat Clear Calc 32.08 Est GFR (MDRD) Af Amer 42 L Est GFR (MDRD) Non-Af 34 L BUN/Creatinine Ratio 13.4 Glucose 266 H Lactic Acid 2.0 Calcium 9.2 Total Bilirubin 4.40 H Direct Bilirubin 3.30 H AST 251 H ALT 328 H Alkaline Phosphatase 216 H Troponin I High Sens 44 Total Protein 7.9 Albumin 3.2 Globulin 4.7 H Lipase 1097 H Urine Color Urine Clarity Urine pH Ur Specific [place] Urine Protein Urine Glucose (UA) Urine Ketones Urine Occult Blood Urine Nitrite Urine Bilirubin Urine Urobilinogen Ur Leukocyte Esterase Urine RBC Urine WBC Ur Squamous Epith Cells Urine Bacteria Urine Mucus 02/07/22 03:00 WBC RBC Hgb Hct MCV MCH MCHC RDW Std Deviation RDW Coeff of Pee Plt Count MPV Immature Gran % (Auto) Neut % (Auto) Lymph % (Auto) Brantley % (Auto) Eos % (Auto) Baso % (Auto) Absolute Neuts (auto) Absolute Lymphs (auto) Nucleated RBC % Diff Path Review Anisocytosis Sodium Potassium Chloride Carbon Dioxide Anion Gap BUN Creatinine Estim Creat Clear Calc Est GFR (MDRD) Af Amer Est GFR (MDRD) Non-Af BUN/Creatinine Ratio Glucose Lactic Acid Calcium Total Bilirubin Direct Bilirubin AST ALT Alkaline Phosphatase Troponin I High Sens Total Protein Albumin Globulin Lipase Urine Color Yellow Urine Clarity Clear Urine pH 6.0 Ur Specific [place] 1.010 Urine Protein 30 H Urine Glucose (UA) 1000 H Urine Ketones Negative Urine Occult Blood 10 H Urine Nitrite Negative Urine Bilirubin 1 H Urine Urobilinogen 1 H Ur Leukocyte Esterase Negative Urine RBC 0 SEEN Urine WBC 0 SEEN Ur Squamous Epith Cells 0 SEEN Urine Bacteria 1+ Urine Mucus 0 SEEN Radiography Diagnostic Testing: Clinical Impression(s) from Imaging Studies Abdomen/Pelvis CT 02/07/22 02:42 IMPRESSION: Negative enhanced CT of the abdomen and pelvis for acute intra-abdominal abnormality. Normal appendix. No ureteral calculus. Electronically Signed: Sam Menard MD at 3:50 EDT , Shoulder X-Ray 02/07/22 02:42 IMPRESSION: Intact right shoulder prosthesis. No demonstrated fracture, dislocation, or destructive osseous lesion. Electronically Signed: Cliff Cortez MD at 4:23 EDT , Chest X-Ray 02/07/22 03:30 IMPRESSION: 1. Mild cardiomegaly. Pacemaker. 2. No evidence for acute cardiopulmonary pathology. Electronically Signed: Cliff Cortez MD at 4:30 EDT , Gallbladder Ultrasound 02/07/22 04:48 IMPRESSION: Gallbladder sludge with distended gallbladder and gallbladder wall thickening and trace pericholecystic fluid with also positive sonographic King''s sign. Findings concerning for underlying cholecystitis. Electronically Signed: Sam Menard MD at 6:22 EDT , Critical Care Time Critical Care Time: Yes Critical care time (excluding procedures): - (Please note critical care time of 37 minutes) Discharge Plan Triage Chief Complaint: Weakness Other Complaint: Abd Pain ED Provider: Jin Erazo Dx/Rx/DC Orders Clinical Impression: Choledocholithiasis with acute cholecystitis with obstruction Prescriptions: No Action melatonin 5 mg capsule 10 mg PO QHS RF: 0 lisinopril 40 mg tablet 40 mg PO QDAY RF: 0 cholecalciferol (vitamin D3) 2,000 unit capsule 3,000 unit PO QDAY RF: 0 empagliflozin 25 mg tablet 25 mg PO DAILY RF: 0 aspirin [Adult Low Dose Aspirin] 81 mg tablet,delayed release (DR/EC) 81 mg PO DAILY RF: 0 metformin 500 mg tablet 500 mg PO BID RF: 0 pyridoxine (vitamin B6) 100 mg tablet 100 mg PO DAILY RF: 0 multivitamin 1 EACH tablet 1 ea PO DAILY RF: 0 carvedilol 25 MG tablet 25 mg PO BID RF: 0 gabapentin 400 mg capsule 600 mg PO BID RF: 0 rosuvastatin 40 MG tablet 40 mg PO QHS RF: 0 omeprazole 20 MG capsule 40 mg PO DAILY RF: 0 magnesium oxide 400 MG tablet 420 mg PO DAILY RF: 0 insulin glargine 100 unit/mL solution 25 unit SC DAILY RF: 0 Victoza 2-Juan 0.6 mg/0.1 mL (18 mg/3 mL) Pen Injector 1.8 mg SUBCUT DAILY RF: 0 Primary Care Provider: Krissy Hussein Referrals: Krissy Hussein MD [Primary Care Provider] - Disposition Disposition: Acute Care Hospital [facility]
[2022-02-07] MEDS: HYDROmorphone 0.5 MG/0.5 ML SYRINGE IV (06:07)
[2022-02-07 06:52] LABS: Reflex Lactate? Y
--- NOTE | 2022-02-07 08:02 | NURSING ---
CALLED [facility] [employer] TRANSFER LINE. HAD TO LEAVE MESSAGE ABOUT ADMISSION/SURGERY TALKED TO RUKHSANA BEFORE GETTING TRANSFERRED
--- NOTE | 2022-02-07 08:17 | NURSING ---
DR ILIANA LORENZANA
--- NOTE | 2022-02-07 08:25 | NURSING ---
PCU JOPPERI CHOLEDOCHOLITHIASIS
--- NOTE | 2022-02-07 08:40 | NURSING ---
GOING TO ICU
[2022-02-07 08:42] LABS: Lactic Acid 1.5 mmol/L (0.4-1.9)
--- NOTE | 2022-02-07 09:02 | HP.PCM.HOS_ITS ---
HPI - General General Date of Admission: 02/07/22 Date of Service: 02/07/22 Chief Complaint: abdominal pain HPI Narrative VASHTI LIMA, is a 76 M who presents with a 2-day history of abdominal pain. Patient has not been eating that well and today it was just very weak and unable to use his legs. His wanted bring him to the hospital yesterday but patient declined but given his condition worsened he agreed to proceed to come in today. Initially, the patient was normotensive but then did become hypotensive. Patient received over 3 L of IV fluids and BP still is marginal. Triple-lumen catheter was attempted on the left internal jugular and was unsuccessful. Patient received Pipracil and/tazobactam. Patient had a CAT scan that was unremarkable. Gallbladder ultrasound, however, showed gallbladder sludge with distended gallbladder and gallbladder wall thickening and trace pericholecystic fluid. Dr. Otto, gastroenterology was contacted and recommended MRCP, however due to the patient's AICD that would not be feasible for at least few days if it were compatible. And Dr. Ngo, general surgery, was contacted and recommended medical admission. Patient continues to have abdominal pain but unfortunately patient blood pressure they have not been able to administer morphine. [facility] Medical History Atherosclerotic heart disease of [place] coronary artery without angina pectoris Ischemic cardiomyopathy Old inferior wall myocardial infarction Pure hypercholesterolemia Sustained ventricular tachycardia (09/2018) Type 2 diabetes mellitus Home Medications carvedilol 25 mg PO BID 09/04/17 [History Last Taken 09/21/17] multivitamin 1 ea PO DAILY 09/04/17 [History Last Taken Unknown] cholecalciferol (vitamin D3) 50 mcg (2,000 unit) capsule 3,000 unit PO QDAY cap 02/15/18 [History Last Taken Unknown] lisinopril 40 mg tablet 40 mg PO QDAY 02/15/18 [History Last Taken Unknown] melatonin 5 mg capsule 10 mg PO QHS ea 02/15/18 [History Last Taken Unknown] gabapentin 400 mg capsule 600 mg PO BID cap 04/04/19 [History Last Taken Unknown] magnesium oxide 420 mg PO DAILY 10/18/19 [History Last Taken Unknown] omeprazole 40 mg PO DAILY 10/18/19 [History Last Taken Unknown] rosuvastatin 40 mg PO QHS 10/18/19 [History Last Taken Unknown] aspirin 81 mg tablet,delayed release 81 mg PO DAILY 10/22/19 [History Last Taken Unknown] empagliflozin 25 mg tablet 25 mg PO DAILY 10/22/19 [History Last Taken Unknown] insulin glargine 100 unit/mL subcutaneous solution 25 unit SC DAILY ml 06/04/20 [History Last Taken Unknown] metformin 500 mg tablet 500 mg PO BID tab 06/04/20 [History Last Taken Unknown] pyridoxine (vitamin B6) 100 mg tablet 100 mg PO DAILY 01/19/22 [History Last Taken Unknown] liraglutide [Victoza 2-Juan] 1.8 mg SUBCUT DAILY 02/07/22 [History Last Taken Unknown] Allergy/AdvReac Type Severity Reaction Status Date / Time amitriptyline Allergy Unknown Verified 02/07/22 01:50 carisoprodol Allergy Unknown Verified 02/07/22 01:50 ibuprofen [From Advil] Allergy HYPERTENSIO Verified 02/07/22 01:50 N etodolac AdvReac Diarrhea Verified 02/07/22 01:50 furosemide AdvReac DIZZY Verified 02/07/22 01:50 meloxicam [From Mobic] AdvReac Unknown Verified 02/07/22 01:50 topiramate AdvReac Other Verified 02/07/22 01:50 Family History Father , age 75 pancreatic cancer Pancreatic cancer Mother , Age 99. Cardiac pacemaker in situ Sister , age 67 from CVA CVA (cerebral vascular accident) Surgical History History of coronary artery stent placement (03/08/01) History of implantable cardiac defibrillator (ICD) (09/21/17) History of left knee replacement (2013) History of right knee joint replacement (11/2019) Hx of cataract extraction Hx of shoulder replacement Hx of shoulder surgery lumbar nerve ablation (04/2020) S/P herniorrhaphy Social History household members: spouse Smoking Status: Former smoker pack-years: 40 how long ago did patient quit smoking: Quit 09/27/1990, smoked 2 ppd x 20 years alcohol intake: current alcohol intake frequency: a few times a month substance use type: does not use ROS ROS Narrative Dizziness. Patient having chest pain which she thought was related with anxiety. 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 No nausea or vomiting, no diarrhea. All review of systems were negative except as mentioned above in the history of present illness and the other review of systems. Vital Signs Vital Signs Vital Signs: 02/07/22 01:46 02/07/22 03:38 02/07/22 03:46 Temperature 36.3 C L Temperature Source Temporal Pulse Rate 87 112 H Pulse Rate [Lying] 113 H Pulse Rate [Sitting (for 1 minute prior to obtaining)] 78 Respiratory Rate 16 20 H Blood Pressure 123/76 H 85/65 L Blood Pressure [Lying] 95/53 L Blood Pressure [Sitting (for 1 minute prior to obtaining)] 80/50 L Blood Pressure Mean 91 71 Blood Pressure Mean [Lying] 67 Blood Pressure Mean [Sitting (for 1 minute prior to obtaining)] 60 Pulse Ox 95 93 Oxygen Delivery Method Room Air Room Air 02/07/22 04:37 02/07/22 05:21 02/07/22 06:10 Temperature Temperature Source Pulse Rate 121 H 120 H Pulse Rate [Lying] Pulse Rate [Sitting (for 1 minute prior to obtaining)] Respiratory Rate 18 17 18 Blood Pressure 83/69 L 93/78 104/71 Blood Pressure [Lying] Blood Pressure [Sitting (for 1 minute prior to obtaining)] Blood Pressure Mean 73 83 82 Blood Pressure Mean [Lying] Blood Pressure Mean [Sitting (for 1 minute prior to obtaining)] Pulse Ox 96 95 95 Oxygen Delivery Method Room Air Room Air Room Air 02/07/22 06:45 02/07/22 08:13 02/07/22 08:45 Temperature Temperature Source Pulse Rate 115 H 110 H 113 H Pulse Rate [Lying] Pulse Rate [Sitting (for 1 minute prior to obtaining)] Respiratory Rate 18 18 20 H Blood Pressure 87/65 L 93/70 84/59 L Blood Pressure [Lying] Blood Pressure [Sitting (for 1 minute prior to obtaining)] Blood Pressure Mean 72 77 67 Blood Pressure Mean [Lying] Blood Pressure Mean [Sitting (for 1 minute prior to obtaining)] Pulse Ox 95 96 96 Oxygen Delivery Method Room Air Room Air Room Air Weight Weight: 79.832 kg Body Mass Index (BMI) 25.9 Physical Exam Const alert Constitutional Narrative: Hard of hearing General Appearance: cooperative HEENT normocephalic, head/scalp atraumatic, hearing grossly normal bilaterally and moist oral mucous membranes Eyes PERRL Eyes Narrative: No icterus Neck no lymphadenopathy Neck Narrative: No thyromegaly Resp normal respiratory effort, no retractions, no use of accessory muscles and clear to auscultation bilaterally Cardio regular rate, regular rhythm, S1 normal heart sound and S2 normal heart sound GI GI Narrative: Nondistended. Tender in right upper quadrant with guarding. No rebound tenderness Extremity normal to inspection Skin no rashes or lesions noted Neuro Sensorium / Orientation: awake and alert Psych affect normal Results Lab / Micro Data Result Diagrams: 02/07/22 02:21 02/07/22 02:21 Labs: Laboratory Results - last 24 hr 02/07/22 02:21: WBC 16.4 H, RBC 5.00, Hgb 13.0, Hct 39.6 L, MCV 79.2 L, MCH 26.0 L, MCHC 32.8, RDW Std Deviation 45.0 H, RDW Coeff of Pee 15.7 H, Plt Count 178, MPV 9.8, Immature Gran % (Auto) 0.900, Neut % (Auto) 80.3 H, Lymph % (Auto) 7.5 L, [place] % (Auto) 11.1 H, Eos % (Auto) 0.0, Baso % (Auto) 0.2, Absolute Neuts (auto) 13.2 H, Absolute Lymphs (auto) 1.23, Nucleated RBC % 0, Diff Path Review May foll, Anisocytosis 1+ 02/07/22 02:21: Sodium 134 L, Potassium 4.5, Chloride 101, Carbon Dioxide 23.0, Anion Gap 10, BUN 27 H, Creatinine 2.02 H, Estim Creat Clear Calc 32.08, Est GFR (MDRD) Af Amer 42 L, Est GFR (MDRD) Non-Af 34 L, BUN/Creatinine Ratio 13.4, Glucose 266 H, Calcium 9.2, Total Bilirubin 4.40 H, Direct Bilirubin 3.30 H, AST 251 H, ALT 328 H, Alkaline Phosphatase 216 H, Troponin I High Sens 44, Total Protein 7.9, Albumin 3.2, Globulin 4.7 H, Lipase 1097 H 02/07/22 02:50: Lactic Acid 2.0 02/07/22 03:00: Urine Color Yellow, Urine Clarity Clear, Urine pH 6.0, Ur Specific [place] 1.010, Urine Protein 30 H, Urine Glucose (UA) 1000 H, Urine Ketones Negative, Urine Occult Blood 10 H, Urine Nitrite Negative, Urine Bilirubin 1 H, Urine Urobilinogen 1 H, Ur Leukocyte Esterase Negative, Urine RBC 0 SEEN, Urine WBC 0 SEEN, Ur Squamous Epith Cells 0 SEEN, Urine Bacteria 1+, Urine Mucus 0 SEEN 02/07/22 08:05: Lactic Acid 1.5 EKG Initial EKG: Attestation: I personally reviewed and interpreted this EKG as follows: Prior EKG tracings: available for review EKG Rhythm Intrepretation: Ventricular Paced Radiology Impression Abdomen/Pelvis CT 02/07/22 02:42 IMPRESSION: Negative enhanced CT of the abdomen and pelvis for acute intra-abdominal abnormality. Normal appendix. No ureteral calculus. Electronically Signed: Sam Menard MD at 3:50 EDT , Shoulder X-Ray 02/07/22 02:42 IMPRESSION: Intact right shoulder prosthesis. No demonstrated fracture, dislocation, or destructive osseous lesion. Electronically Signed: Cliff Cortez MD at 4:23 EDT , Chest X-Ray 02/07/22 03:30 IMPRESSION: 1. Mild cardiomegaly. Pacemaker. 2. No evidence for acute cardiopulmonary pathology. Electronically Signed: Cliff Cortez MD at 4:30 EDT , Gallbladder Ultrasound 02/07/22 04:48 IMPRESSION: Gallbladder sludge with distended gallbladder and gallbladder wall thickening and trace pericholecystic fluid with also positive sonographic King''s sign. Findings concerning for underlying cholecystitis. Electronically Signed: Sam Menard MD at 6:22 EDT , Assessment & Plan Assessment/Plan (1) Choledocholithiasis with acute cholecystitis with obstruction: (2) Sepsis: QUALIFIERS: Sepsis type: sepsis due to unspecified organism Sepsis acute organ dysfunction status: without acute organ dysfunction Qualified Code(s): A41.9 - Sepsis, unspecified organism (3) Pancreatitis: QUALIFIERS: Chronicity: acute Pancreatitis type: biliary Acute pancreatitis complication: no infection or necrosis Qualified Code(s): K85.10 - Biliary acute pancreatitis without necrosis or infection (4) Transaminitis: PLAN: 1. Sepsis Secondary to cholecystitis On Pipracil/tazobactam Received 3 L of IV fluids in the emergency room Continue with IV fluids Check blood cultures as they are not checked in the emergency room. Patient blood pressure is tenuous and there is high concern that patient could decline quickly so patient will be least monitored in ICU for the day. 2. Acute cholecystitis With choledocholithiasis GI on consult for potential ERCP, MRCP cannot be performed least immediately due to the patient's AICD General surgery on consult for cholecystitis. There is a note from patient's cardiology group back in November of this year that cleared him for his shoulder replacement surgery. Unclear patient will need to be medically cleared again but will cycle through his troponins. Got hold off on cardiac clearance at this point time as patient is hemodynamically tenuous. Did talk to the patient that he may need to get his gallbladder clear removed or maybe possibly having a cholecystotomy tube. N.p.o. 3. Pancreatitis Secondary to above Supportive management No evidence of necrosis 4. Transaminitis Secondary to above Monitor 6. Chronic heart failure with reduced ejection fraction Compensated this time EF from September 15, 2021 was at 37% Monitor closely with the large quantities of fluid patient is receiving 4 decompensation 7. CKD 3B Creatinine up slightly from his baseline Monitor for now 8. Diabetes mellitus type 2 Hold his home meds 9. VTE prophylaxis with SCDs 10. COVID-19 vaccination status: Patient is vaccinated and boosted 11. CODE STATUS: Addressed with the patient. Patient is full CODE STATUS. Sign scale insulin Charges/Coding Visit Charges Inpatient E&M: 59573 Init Hosp L3
--- NOTE | 2022-02-07 09:20 | NURSING ---
ICU 1
--- NOTE | 2022-02-07 10:04 | EX.PCM.CONCC ---
Assessment & Plan Assessment/Plan (1) Choledocholithiasis with acute cholecystitis with obstruction: (2) Pancreatitis: QUALIFIERS: Chronicity: acute Pancreatitis type: biliary Acute pancreatitis complication: no infection or necrosis Qualified Code(s): K85.10 - Biliary acute pancreatitis without necrosis or infection (3) Ischemic cardiomyopathy: (4) Sepsis: QUALIFIERS: Sepsis type: sepsis due to unspecified organism Sepsis acute organ dysfunction status: without acute organ dysfunction Qualified Code(s): A41.9 - Sepsis, unspecified organism PLAN: RECOMMENDATIONS: 1. Await response to fluid bolus 2. Potential attempted central line with pressors later today 3. Await recommendations by GI/surgery 4. Agree with empiric antibiotics. Cultures have been ordered. 5. Monitor oxygenation status closely given CHF 6. Discontinue diabetic medications. Initiate sliding scale with possible basal insulin IMPRESSIONS: 1. Sepsis Clinical suspicion for gallbladder as potential etiology. Patient also has findings consistent with gallstone pancreatitis without pseudocyst formation on CT scan. Patient has symptomatology of endorgan damage given elevated liver enzymes and slight elevation in creatinine. Patient has received fluid resuscitation. High clinical suspicion that pressors will be required given patient's underlying EF of 37%. Zosyn would be appropriate. Cultures have been sent. Likely reassess later today by ultrasound of the right IJ to see if central line can be placed. Doubt left IJ will be a viable option as failure to advance guidewire likely relates to AICD. 2. Acute pancreatitis/cholecystitis secondary to potential gallstone GI and surgery have been consulted. There appears to be some limitation to the ability to be treated with ERCP and surgery. Medical management has been recommended. It is unclear if a percutaneous Danay tube would be required for local control if interventions cannot be performed in a timely fashion. We will continue supportive management. Keep n.p.o. Could potentially use fentanyl for pain control from my perspective 3. Chronic systolic CHF Patient's last known ejection fraction was 37% in August 2021. Patient has received significant fluid resuscitation, but still appears to be compensated at this time. We will need to watch patient closely. If patient requires supplemental oxygen, IV fluids will have to be discontinued. Patient appears to be fluid responsive at this time, so will continue with current boluses. Hold antihypertensives given patient's sepsis. 4. Chronic kidney disease stage IIIb Creatinine is slightly up from his baseline. Patient's blood pressure does appear to be slightly improved with fluid resuscitation. We will continue with conservative measures. Patient with no indication for renal replacement therapy at this time. 5. Diabetes mellitus type 2/history of smoking/advanced age Complicates care, management, recovery and prognosis. DC baseline diabetic meds and cover with sliding scale insulin and potential basal insulin. Patient was confirmed a full CODE STATUS by hospitalist. HPI Consult Data Date of Consult: 02/07/22 HPI Narrative HPI Narrative: VASHTI LIMA is a 76 M, with past medical history listed below, who presents to [facility] on 02/07/2022 secondary to abdominal pain, nausea and anorexia. Patient reportedly tried to get to the bathroom using a walker and fell. Patient reportedly did not strike his head or lose consciousness, but did have loss of bladder control. Patient was unable to get up, so he was brought to the emergency room for further evaluation. Patient is not a very good historian, but reportedly has had abdominal pain for up to 5 days. Patient states this has been progressive and localized to the right upper quadrant to epigastric area. Patient has not had any previous similar type complaints. Patient does report that his medications were recently changed by cardiology secondary to orthostatic hypotension. In the ER, patient was afebrile, but tachycardic at 121 bpm. Patient also found to be hypotensive as low as 83/69. Patient has been saturating well on room air. Laboratory work-up showed a leukocytosis of 16.4, hemoglobin of 13 and platelets of 178. Patient did have an elevated creatinine of 2 and a glucose of 266. Lactate was slightly elevated at 2. Liver enzymes were elevated including a total bilirubin of 4.4, direct bilirubin of 3.3, AST of 251 and ALT of 328. Lipase was elevated at 1097. UA was relatively unremarkable except for glucosuria. Multiple imaging studies were obtained including a gallbladder ultrasound showing sludge with distended gallbladder and wall thickening. CT of the head was unremarkable. There was concern for gallstone pancreatitis, so Zosyn was initiated. Patient did receive fluid resuscitation with 3 L of IV fluids and improvement in blood pressure. There was an attempt at a left IJ x2 that was unsuccessful. Case was discussed with GI and general surgery. Since being admitted to the intensive care unit, patient subjectively is unchanged. Patient is still reporting significant abdominal pain, but no nausea or vomiting. Patient reports that he did have his shoulder surgery in December and it has been healing appropriately. Patient does report a history of a hernia repair, but otherwise has no intra-abdominal surgeries. Patient is not aware of any previous episodes of pancreatitis, but does have type 2 diabetes that they have been working with. Patient denies any exposure to asbestos or TB. Patient does have a long smoking history, but quit sometime ago. Patient is never been told he has COPD or other obstructive lung disease. Review of systems otherwise negative from a constitutional, HEENT, respiratory, cardiovascular, GI, genitourinary, musculoskeletal, skin, neurologic, psychiatric and hematologic system unless stated above. [facility] Medical History Atherosclerotic heart disease of [place] coronary artery without angina pectoris Ischemic cardiomyopathy Old inferior wall myocardial infarction Pure hypercholesterolemia Sustained ventricular tachycardia (09/2018) Type 2 diabetes mellitus Home Medications carvedilol 25 mg PO BID 09/04/17 [History Last Taken 09/21/17] multivitamin 1 ea PO DAILY 09/04/17 [History Last Taken Unknown] cholecalciferol (vitamin D3) 50 mcg (2,000 unit) capsule 3,000 unit PO QDAY cap 02/15/18 [History Last Taken Unknown] lisinopril 40 mg tablet 40 mg PO QDAY 02/15/18 [History Last Taken Unknown] melatonin 5 mg capsule 10 mg PO QHS ea 02/15/18 [History Last Taken Unknown] gabapentin 400 mg capsule 600 mg PO BID cap 04/04/19 [History Last Taken Unknown] magnesium oxide 420 mg PO DAILY 10/18/19 [History Last Taken Unknown] omeprazole 40 mg PO DAILY 10/18/19 [History Last Taken Unknown] rosuvastatin 40 mg PO QHS 10/18/19 [History Last Taken Unknown] aspirin 81 mg tablet,delayed release 81 mg PO DAILY 10/22/19 [History Last Taken Unknown] empagliflozin 25 mg tablet 25 mg PO DAILY 10/22/19 [History Last Taken Unknown] insulin glargine 100 unit/mL subcutaneous solution 25 unit SC DAILY ml 06/04/20 [History Last Taken Unknown] metformin 500 mg tablet 500 mg PO BID tab 06/04/20 [History Last Taken Unknown] pyridoxine (vitamin B6) 100 mg tablet 100 mg PO DAILY 01/19/22 [History Last Taken Unknown] liraglutide [Victoza 2-Juan] 1.8 mg SUBCUT DAILY 02/07/22 [History Last Taken Unknown] Allergy/AdvReac Type Severity Reaction Status Date / Time amitriptyline Allergy Unknown Verified 02/07/22 01:50 carisoprodol Allergy Unknown Verified 02/07/22 01:50 ibuprofen [From Advil] Allergy HYPERTENSIO Verified 02/07/22 01:50 N etodolac AdvReac Diarrhea Verified 02/07/22 01:50 furosemide AdvReac DIZZY Verified 02/07/22 01:50 meloxicam [From Mobic] AdvReac Unknown Verified 02/07/22 01:50 topiramate AdvReac Other Verified 02/07/22 01:50 Family History Father , age 75 pancreatic cancer Pancreatic cancer Mother , Age 99. Cardiac pacemaker in situ Sister , age 67 from CVA CVA (cerebral vascular accident) Surgical History History of coronary artery stent placement (03/08/01) History of implantable cardiac defibrillator (ICD) (09/21/17) History of left knee replacement (2013) History of right knee joint replacement (11/2019) Hx of cataract extraction Hx of shoulder replacement Hx of shoulder surgery lumbar nerve ablation (04/2020) S/P herniorrhaphy Social History household members: spouse Smoking Status: Former smoker pack-years: 40 how long ago did patient quit smoking: Quit 09/27/1990, smoked 2 ppd x 20 years alcohol intake: current alcohol intake frequency: a few times a month substance use type: does not use ROS ROS Narrative See HPI Physical Exam Const alert and oriented x3 Constitutional Narrative: Hard of hearing General Appearance: cooperative, in distress Positive for moderate; Negative for respiratory and anxious HEENT normocephalic, head/scalp atraumatic, hearing grossly normal bilaterally and moist oral mucous membranes Eyes PERRL, EOMs intact bilaterally, conjunctivae normal and no scleral icterus Neck no lymphadenopathy, no JVD and thyroid normal Neck Narrative: No bruising noted at left IJ attempt General: trachea midline Chest Chest Narrative: Left chest defibrillator Resp normal respiratory effort, no retractions, no use of accessory muscles and clear to auscultation bilaterally Cardio regular rate, regular rhythm, S1 normal heart sound and S2 normal heart sound GI Inspection: Negative for abdominal wall ecchymosis or fluid wave present Auscultation: hypoactive bowel sounds Palpation: soft and tender RUQ and King's sign; Negative for ascites Extremity Extremity Narrative: Healing right shoulder wound noted. No fluctuance or surrounding erythema Skin no rashes or lesions noted Neuro Sensorium / Orientation: awake and alert Psych affect normal Lab / Micro Data Result Diagrams: 02/07/22 02:21 02/07/22 02:21 Labs: Laboratory Results - last 24 hr 02/07/22 02:21: WBC 16.4 H, RBC 5.00, Hgb 13.0, Hct 39.6 L, MCV 79.2 L, MCH 26.0 L, MCHC 32.8, RDW Std Deviation 45.0 H, RDW Coeff of Pee 15.7 H, Plt Count 178, MPV 9.8, Immature Gran % (Auto) 0.900, Neut % (Auto) 80.3 H, Lymph % (Auto) 7.5 L, [place] % (Auto) 11.1 H, Eos % (Auto) 0.0, Baso % (Auto) 0.2, Absolute Neuts (auto) 13.2 H, Absolute Lymphs (auto) 1.23, Nucleated RBC % 0, Diff Path Review May foll, Anisocytosis 1+ 02/07/22 02:21: Sodium 134 L, Potassium 4.5, Chloride 101, Carbon Dioxide 23.0, Anion Gap 10, BUN 27 H, Creatinine 2.02 H, Estim Creat Clear Calc 32.08, Est GFR (MDRD) Af Amer 42 L, Est GFR (MDRD) Non-Af 34 L, BUN/Creatinine Ratio 13.4, Glucose 266 H, Calcium 9.2, Total Bilirubin 4.40 H, Direct Bilirubin 3.30 H, AST 251 H, ALT 328 H, Alkaline Phosphatase 216 H, Troponin I High Sens 44, Total Protein 7.9, Albumin 3.2, Globulin 4.7 H, Lipase 1097 H 02/07/22 02:50: Lactic Acid 2.0 02/07/22 03:00: Urine Color Yellow, Urine Clarity Clear, Urine pH 6.0, Ur Specific [place] 1.010, Urine Protein 30 H, Urine Glucose (UA) 1000 H, Urine Ketones Negative, Urine Occult Blood 10 H, Urine Nitrite Negative, Urine Bilirubin 1 H, Urine Urobilinogen 1 H, Ur Leukocyte Esterase Negative, Urine RBC 0 SEEN, Urine WBC 0 SEEN, Ur Squamous Epith Cells 0 SEEN, Urine Bacteria 1+, Urine Mucus 0 SEEN 02/07/22 08:05: Lactic Acid 1.5 Micro: Microbiology 02/07/22 09:20 Nasal Secretion SARS-CoV-2 Antigen (Rapid) - Final Radiology Impression Abdomen/Pelvis CT 02/07/22 02:42 IMPRESSION: Negative enhanced CT of the abdomen and pelvis for acute intra-abdominal abnormality. Normal appendix. No ureteral calculus. Electronically Signed: Sam Menard MD at 3:50 EDT , Shoulder X-Ray 02/07/22 02:42 IMPRESSION: Intact right shoulder prosthesis. No demonstrated fracture, dislocation, or destructive osseous lesion. Electronically Signed: Cliff Cortez MD at 4:23 EDT , Chest X-Ray 02/07/22 03:30 IMPRESSION: 1. Mild cardiomegaly. Pacemaker. 2. No evidence for acute cardiopulmonary pathology. Electronically Signed: Cliff Cortez MD at 4:30 EDT , Gallbladder Ultrasound 02/07/22 04:48 IMPRESSION: Gallbladder sludge with distended gallbladder and gallbladder wall thickening and trace pericholecystic fluid with also positive sonographic King''s sign. Findings concerning for underlying cholecystitis. Electronically Signed: Sam Menard MD at 6:22 EDT , Charges/Coding Visit Charges Inpatient E&M: 07826 Init Hosp L3
[2022-02-07] MEDS: fentaNYL 100 MCG/2 ML Ampul 25 MCG IV (10:42)
[2022-02-07] MEDS: 0.9% Normal Saline 1,000 ML 150 ML IV (10:43)
[2022-02-07 10:59] LABS: Troponin-I HS 164 pg/mL (3.0-78.0)
[2022-02-07] MEDS: fentaNYL 100 MCG/2 ML Ampul 50 MCG IV ×6 (12:50→23:52)
[2022-02-07] MEDS: Insulin Lispro 100 UNIT/ML INSULN.PEN SC (12:51)
[2022-02-07 12:52] LABS: Pathologist Review Reviewed
[2022-02-07 13:06] LABS: Bedside Glucose 162 mg/dL (74-106)
[2022-02-07 13:07] LABS: Troponin-I HS 202 pg/mL (3.0-78.0)
--- NOTE | 2022-02-07 13:28 | CASEMGMT ---
WASHINGTON BURGESS assessment: Face to Face with patient for initial transition planning/care coordination assessment. WASHINGTON BURGESS introduced self and role at [facility], /daughter voice understanding and consent to assessment. Pt is lying in bed in no distress on 2L. Pt is sleeping without distress and /daughter answer all questions for pt at this time. Pt does awake for short period of time and states 'You need to talk to her() anyway, she knows everything.' Care providers, pharmacy, and demographics verified/updated. Presentation: Pt w/ fall at home, c/o increased weakness, no appetite and RLQ abd pain-recent shoulder surgery 3 weeks ago Admitting dx: Sepsis d/t cholecystitis PCP: [facility] Specialists: Shivani, cardio; ortho at [facility] Preferred Pharmacy: [facility] Insurance: [facility] A/B, jalen Prescription Benefit: [place] Living Will/HPOA: Pt has LW/HPOA and is aware that they are on file at [facility]. Pt's , Kandi Smith, is HPOA. LNOK: Kandi Smith, /HPOA; Samantha Abdullahi, daughter Living Arrangements: Pt lives with in 1 story home with 3 steps in and states no concerns at home. Pt is independent with ADL's. Transportation: Pt drives self or family drives and states no transportation concerns. DME/HHC: Pt has the following DME: cane, walker, hearing aids, grab bar by garage step, ice machine, and adjustable bed. states no need for any further DME. Pt states no hx of SNF but has had HHC in the past s/p knee surgeries. states some concerns with going home at time of discharge, if pt is too weak. Pt is retired. Pt does not smoke cigarettes and rarely drinks ETOH. states no further questions/concerns/needs. CM to follow for any further discharge planning/needs. Advised pt/family to ask for CM if any further questions/concerns/needs, voices understanding. Pt Goal: Home Plan: Home, pending therapy vaishnavi Sanchez RN, CM
[2022-02-07 16:52] LABS: Troponin-I HS 348 pg/mL (3.0-78.0)
--- NOTE | 2022-02-07 17:03 | EX.PCM.CON.S ---
Assessment & Plan Assessment/Plan (1) Choledocholithiasis with acute cholecystitis with obstruction: PLAN: Patient's ERCP has been canceled. I have discussed the case with Dr. Love and we will be placing a cholecystostomy tube in him tomorrow. I have ordered a PT PTT INR to be drawn tonight. The goal will be to cool off his gallbladder and then at a later date he will be able to have a gallbladder removed more likely at a tertiary referral center. (2) Sepsis: QUALIFIERS: Sepsis acute organ dysfunction status: without acute organ dysfunction Sepsis type: sepsis due to unspecified organism Qualified Code(s): A41.9 - Sepsis, unspecified organism HPI Consult Data Date of Consult: 02/07/22 HPI Narrative HPI Narrative: VASHTI LIMA, is a 76 M who presents a 2-day history of abdominal pain. Patient has not been eating that well and today it was just very weak and unable to use his legs. His wanted bring him to the hospital yesterday but patient declined but given his condition worsened he agreed to proceed to come in today. Initially, the patient was normotensive but then did become hypotensive. Patient received over 3 L of IV fluids and BP still is marginal. Triple-lumen catheter was attempted on the left internal jugular and was unsuccessful. Patient received Pipracil and/tazobactam. Patient had a CAT scan that was unremarkable. Gallbladder ultrasound, however, showed gallbladder sludge with distended gallbladder and gallbladder wall thickening and trace pericholecystic fluid. Dr. Otto, gastroenterology was contacted and recommended MRCP, however due to the patient's AICD that would not be feasible for at least few days if it were compatible. And Dr. Ngo, general surgery, was contacted and recommended medical admission. Patient continues to have abdominal pain but unfortunately patient blood pressure they have not been able to administer morphine. Patient became hypotensive with minimal analgesic given. In addition his troponin levels have been rising steadily throughout the day. His ERCP has been canceled secondary to this. [facility] Medical History Atherosclerotic heart disease of [place] coronary artery without angina pectoris Ischemic cardiomyopathy Old inferior wall myocardial infarction Pure hypercholesterolemia Sustained ventricular tachycardia (09/2018) Type 2 diabetes mellitus Home Medications carvedilol 25 mg PO BID 09/04/17 [History Last Taken 09/21/17] multivitamin 1 ea PO DAILY 09/04/17 [History Last Taken Unknown] cholecalciferol (vitamin D3) 50 mcg (2,000 unit) capsule 3,000 unit PO QDAY cap 02/15/18 [History Last Taken Unknown] lisinopril 40 mg tablet 40 mg PO QDAY 02/15/18 [History Last Taken Unknown] melatonin 5 mg capsule 10 mg PO QHS ea 02/15/18 [History Last Taken Unknown] gabapentin 400 mg capsule 600 mg PO BID cap 04/04/19 [History Last Taken Unknown] magnesium oxide 420 mg PO DAILY 10/18/19 [History Last Taken Unknown] omeprazole 40 mg PO DAILY 10/18/19 [History Last Taken Unknown] rosuvastatin 40 mg PO QHS 10/18/19 [History Last Taken Unknown] aspirin 81 mg tablet,delayed release 81 mg PO DAILY 10/22/19 [History Last Taken Unknown] empagliflozin 25 mg tablet 25 mg PO DAILY 10/22/19 [History Last Taken Unknown] insulin glargine 100 unit/mL subcutaneous solution 25 unit SC DAILY ml 06/04/20 [History Last Taken Unknown] metformin 500 mg tablet 500 mg PO BID tab 06/04/20 [History Last Taken Unknown] pyridoxine (vitamin B6) 100 mg tablet 100 mg PO DAILY 01/19/22 [History Last Taken Unknown] liraglutide [Victoza 2-Juan] 1.8 mg SUBCUT DAILY 02/07/22 [History Last Taken Unknown] Allergy/AdvReac Type Severity Reaction Status Date / Time amitriptyline Allergy Unknown Verified 02/07/22 01:50 carisoprodol Allergy Unknown Verified 02/07/22 01:50 ibuprofen [From Advil] Allergy HYPERTENSIO Verified 02/07/22 01:50 N etodolac AdvReac Diarrhea Verified 02/07/22 01:50 furosemide AdvReac DIZZY Verified 02/07/22 01:50 meloxicam [From Mobic] AdvReac Unknown Verified 02/07/22 01:50 topiramate AdvReac Other Verified 02/07/22 01:50 Family History Father , age 75 pancreatic cancer Pancreatic cancer Mother , Age 99. Cardiac pacemaker in situ Sister , age 67 from CVA CVA (cerebral vascular accident) Surgical History History of coronary artery stent placement (03/08/01) History of implantable cardiac defibrillator (ICD) (09/21/17) History of left knee replacement (2013) History of right knee joint replacement (11/2019) Hx of cataract extraction Hx of shoulder replacement Hx of shoulder surgery lumbar nerve ablation (04/2020) S/P herniorrhaphy Social History household members: spouse Smoking Status: Former smoker pack-years: 40 how long ago did patient quit smoking: Quit 09/27/1990, smoked 2 ppd x 20 years alcohol intake: current alcohol intake frequency: a few times a month substance use type: does not use ROS Constitutional Constitutional: Denies chills, fatigue or fever(s) Cardiovascular Cardiovascular: Denies chest pain Respiratory/Chest Respiratory/Chest: Denies cough Gastrointestinal Gastrointestinal: Reports abdominal pain; Denies nausea or vomiting Physical Exam Const alert General Appearance: ill appearing Positive for acutely HEENT normocephalic and head/scalp atraumatic Eyes PERRL and EOMs intact bilaterally Resp clear to auscultation bilaterally Cardio Rate: tachycardic GI Inspection: abdominal distention Palpation: tender RUQ and guarding Bladder / Kidney Exam: no CVA tenderness Lab / Micro Data Result Diagrams: 02/07/22 02:21 02/07/22 02:21 Labs: Laboratory Results - last 24 hr 02/07/22 02:21: WBC 16.4 H, RBC 5.00, Hgb 13.0, Hct 39.6 L, MCV 79.2 L, MCH 26.0 L, MCHC 32.8, RDW Std Deviation 45.0 H, RDW Coeff of Pee 15.7 H, Plt Count 178, MPV 9.8, Immature Gran % (Auto) 0.900, Neut % (Auto) 80.3 H, Lymph % (Auto) 7.5 L, [place] % (Auto) 11.1 H, Eos % (Auto) 0.0, Baso % (Auto) 0.2, Absolute Neuts (auto) 13.2 H, Absolute Lymphs (auto) 1.23, Nucleated RBC % 0, Diff Path Review Reviewed, Anisocytosis 1+ 0314/22 02:21: Sodium 134 L, Potassium 4.5, Chloride 101, Carbon Dioxide 23.0, Anion Gap 10, BUN 27 H, Creatinine 2.02 H, Estim Creat Clear Calc 32.08, Est GFR (MDRD) Af Amer 42 L, Est GFR (MDRD) Non-Af 34 L, BUN/Creatinine Ratio 13.4, Glucose 266 H, Calcium 9.2, Total Bilirubin 4.40 H, Direct Bilirubin 3.30 H, AST 251 H, ALT 328 H, Alkaline Phosphatase 216 H, Troponin I High Sens 44, Total Protein 7.9, Albumin 3.2, Globulin 4.7 H, Lipase 1097 H 02/07/22 02:50: Lactic Acid 2.0 02/07/22 03:00: Urine Color Yellow, Urine Clarity Clear, Urine pH 6.0, Ur Specific [place] 1.010, Urine Protein 30 H, Urine Glucose (UA) 1000 H, Urine Ketones Negative, Urine Occult Blood 10 H, Urine Nitrite Negative, Urine Bilirubin 1 H, Urine Urobilinogen 1 H, Ur Leukocyte Esterase Negative, Urine RBC 0 SEEN, Urine WBC 0 SEEN, Ur Squamous Epith Cells 0 SEEN, Urine Bacteria 1+, Urine Mucus 0 SEEN 02/07/22 08:05: Lactic Acid 1.5 02/07/22 10:30: Troponin I High Sens 164 H* 02/07/22 12:35: Troponin I High Sens 202 H* 02/07/22 12:35: POC Glucose 162 H 02/07/22 16:15: Troponin I High Sens 348 H* Micro: Microbiology 02/07/22 09:20 Nasal Secretion SARS-CoV-2 Antigen (Rapid) - Final Radiology Impression Abdomen/Pelvis CT 02/07/22 02:42 IMPRESSION: Negative enhanced CT of the abdomen and pelvis for acute intra-abdominal abnormality. Normal appendix. No ureteral calculus. Electronically Signed: Sam Menard MD at 3:50 EDT , Shoulder X-Ray 02/07/22 02:42 IMPRESSION: Intact right shoulder prosthesis. No demonstrated fracture, dislocation, or destructive osseous lesion. Electronically Signed: Cliff Cortez MD at 4:23 EDT , Chest X-Ray 02/07/22 03:30 IMPRESSION: 1. Mild cardiomegaly. Pacemaker. 2. No evidence for acute cardiopulmonary pathology. Electronically Signed: Cliff Cortez MD at 4:30 EDT , Gallbladder Ultrasound 02/07/22 04:48 IMPRESSION: Gallbladder sludge with distended gallbladder and gallbladder wall thickening and trace pericholecystic fluid with also positive sonographic King''s sign. Findings concerning for underlying cholecystitis. Electronically Signed: Sam Menard MD at 6:22 EDT ,
[2022-02-07 18:21] LABS: Bedside Glucose 147 mg/dL (74-106)
--- NOTE | 2022-02-07 18:39 | CON.PCM.GI_ITS ---
HPI Consult Data Date of Consult: 02/07/22 HPI Narrative HPI Narrative: VASHTI LIMA, is a 76 M with a history of an extensive inferior infarct with stenting to his RCA, cardiomyopathy with an ICD implant. He recently underwent shoulder surgery. He had been doing well the last 2 weeks. Prior to that he had a follow-up with cardiology and he had undergone ag gressive diuresis and it lost 14 pounds. Echocardiogram 2020: Normal LV size. The estimated ejection fraction is 37 %. Moderate segmental systolic dysfunction (see wall motion). Moderate eccentric left ventricular hypertrophy. Mild-Moderate (1-2+) eccentric mitral valve insufficiency. Compared to previous study, the left ventricular systolic function is the same.. He presented to the ER today with worsening weakness and acute onset of right upper quadrant right lower quadrant abdominal pain. In the ED he was tachycardic and hypotensive. His blood work had showed cholestatic hepatitis and jaundice. Imaging had shown findings possibly consistent with acute cholecystitis. Also noted was an elevated lipase possibly consistent with pancreatitis. I was consulted for management of the pancreatitis and cholecystitis with jaundice. We will schedule to do an ERCP today however his troponins have started to rise and are continue to rise. He is on Zosyn therapy and is scheduled for cholecystostomy tube tomorrow. [facility] Medical History Atherosclerotic heart disease of [place] coronary artery without angina pectoris Ischemic cardiomyopathy Old inferior wall myocardial infarction Pure hypercholesterolemia Sustained ventricular tachycardia (09/2018) Type 2 diabetes mellitus Home Medications carvedilol 25 mg PO BID 09/04/17 [History Last Taken 09/21/17] multivitamin 1 ea PO DAILY 09/04/17 [History Last Taken Unknown] cholecalciferol (vitamin D3) 50 mcg (2,000 unit) capsule 3,000 unit PO QDAY cap 02/15/18 [History Last Taken Unknown] lisinopril 40 mg tablet 40 mg PO QDAY 02/15/18 [History Last Taken Unknown] melatonin 5 mg capsule 10 mg PO QHS ea 02/15/18 [History Last Taken Unknown] gabapentin 400 mg capsule 600 mg PO BID cap 04/04/19 [History Last Taken Unknown] magnesium oxide 420 mg PO DAILY 10/18/19 [History Last Taken Unknown] omeprazole 40 mg PO DAILY 10/18/19 [History Last Taken Unknown] rosuvastatin 40 mg PO QHS 10/18/19 [History Last Taken Unknown] aspirin 81 mg tablet,delayed release 81 mg PO DAILY 10/22/19 [History Last Taken Unknown] empagliflozin 25 mg tablet 25 mg PO DAILY 10/22/19 [History Last Taken Unknown] insulin glargine 100 unit/mL subcutaneous solution 25 unit SC DAILY ml 06/04/20 [History Last Taken Unknown] metformin 500 mg tablet 500 mg PO BID tab 06/04/20 [History Last Taken Unknown] pyridoxine (vitamin B6) 100 mg tablet 100 mg PO DAILY 01/19/22 [History Last Taken Unknown] liraglutide [Victoza 2-Juan] 1.8 mg SUBCUT DAILY 02/07/22 [History Last Taken Unknown] Allergy/AdvReac Type Severity Reaction Status Date / Time amitriptyline Allergy Unknown Verified 02/07/22 01:50 carisoprodol Allergy Unknown Verified 02/07/22 01:50 ibuprofen [From Advil] Allergy HYPERTENSIO Verified 02/07/22 01:50 N etodolac AdvReac Diarrhea Verified 02/07/22 01:50 furosemide AdvReac DIZZY Verified 02/07/22 01:50 meloxicam [From Mobic] AdvReac Unknown Verified 02/07/22 01:50 topiramate AdvReac Other Verified 02/07/22 01:50 Family History Father , age 75 pancreatic cancer Pancreatic cancer Mother , Age 99. Cardiac pacemaker in situ Sister , age 67 from CVA CVA (cerebral vascular accident) Surgical History History of coronary artery stent placement (03/08/01) History of implantable cardiac defibrillator (ICD) (09/21/17) History of left knee replacement (2013) History of right knee joint replacement (11/2019) Hx of cataract extraction Hx of shoulder replacement Hx of shoulder surgery lumbar nerve ablation (04/2020) S/P herniorrhaphy Social History household members: spouse Smoking Status: Former smoker pack-years: 40 how long ago did patient quit smoking: Quit 09/27/1990, smoked 2 ppd x 20 years alcohol intake: current alcohol intake frequency: a few times a month substance use type: does not use ROS Review of Systems ROS Unobtainable: other Constitutional Constitutional: Denies fatigue, fever(s), poor appetite, weight gain or weight loss ENT HEENT: Denies mouth lesions Cardiovascular Cardiovascular: Denies abdominal bloating, abdominal edema or abdominal pain Respiratory/Chest Respiratory/Chest: Denies change in mental status, change in phlegm color, chest congestion or chest tightness Gastrointestinal Gastrointestinal: Denies belching, bloating, change in bowel habits, change in stool character, chewing difficulty, coffee ground emesis, constipation, power crane operator mping, diarrhea, dyspepsia, dysphagia, early satiety, excessive flatus, fecal incontinence, heartburn, hematemesis, hematochezia, hemorrhoids, loose stools, melena, nausea, odynophagia, rectal bleeding, tenesmus, vomiting or weight changes Genitourinary Genitourinary: Denies abdominal discomfort, burning urination or itching Musculoskeletal Musculoskeletal: Reports as per HPI; Denies muscle weakness or myalgias Integumentary Integumentary: Denies jaundice Neurologic Neurologic: Denies lack of coordination or weakness Psychiatric Psychiatric: Denies confusion, depression, memory loss, mood swings, paranoia or suicidal ideation Endocrine Endocrinology: Denies systems reviewed and no addt'l complaints, except as documented Hematologic/Lymphatic Hematologic/Lymphatic: Denies anemia, easy bleeding, easy bruising or lymphadenopathy Allergic/Immunologic Allergic/Immunologic: Denies systems reviewed and no addt'l complaints, except as documented Physical Exam Const alert General Appearance: cooperative Orientation / Consciousness: oriented to person HEENT hearing grossly normal bilaterally Head and Scalp: normal to inspection Face and Sinus: face symmetric Nose: external nose normal Mouth: oral and palatal mucosa normal Eyes conjunctivae normal General Eye: normal appearance of both eyes Neck full ROM General: normal visual inspection Lymph Lymphatic: no lymphadenopathy noted Chest inspection of chest normal and palpation of chest normal Chest: symmetrical chest wall rise Resp normal respiratory effort Effort and Inspection: able to speak in complete sentences Cardio regular rate GI non-distended Percussion: normal to percussion Rectal Exam: deferred Neuro Speech: speech normal Gait (Neuro): normal gait Lab / Micro Data Result Diagrams: 02/07/22 02:21 02/07/22 02:21 Labs: Laboratory Results - last 24 hr 02/07/22 02:21: WBC 16.4 H, RBC 5.00, Hgb 13.0, Hct 39.6 L, MCV 79.2 L, MCH 26.0 L, MCHC 32.8, RDW Std Deviation 45.0 H, RDW Coeff of Pee 15.7 H, Plt Count 178, MPV 9.8, Immature Gran % (Auto) 0.900, Neut % (Auto) 80.3 H, Lymph % (Auto) 7.5 L, [place] % (Auto) 11.1 H, Eos % (Auto) 0.0, Baso % (Auto) 0.2, Absolute Neuts (auto) 13.2 H, Absolute Lymphs (auto) 1.23, Nucleated RBC % 0, Diff Path Review Reviewed, Anisocytosis 1+ 02/07/22 02:21: Sodium 134 L, Potassium 4.5, Chloride 101, Carbon Dioxide 23.0, Anion Gap 10, BUN 27 H, Creatinine 2.02 H, Estim Creat Clear Calc 32.08, Est GFR (MDRD) Af Amer 42 L, Est GFR (MDRD) Non-Af 34 L, BUN/Creatinine Ratio 13.4, Glucose 266 H, Calcium 9.2, Total Bilirubin 4.40 H, Direct Bilirubin 3.30 H, AST 251 H, ALT 328 H, Alkaline Phosphatase 216 H, Troponin I High Sens 44, Total Protein 7.9, Albumin 3.2, Globulin 4.7 H, Lipase 1097 H 02/07/22 02:50: Lactic Acid 2.0 02/07/22 03:00: Urine Color Yellow, Urine Clarity Clear, Urine pH 6.0, Ur Specific Dewar 1.010, Urine Protein 30 H, Urine Glucose (UA) 1000 H, Urine Ketones Negative, Urine Occult Blood 10 H, Urine Nitrite Negative, Urine Bilirubin 1 H, Urine Urobilinogen 1 H, Ur Leukocyte Esterase Negative, Urine RBC 0 SEEN, Urine WBC 0 SEEN, Ur Squamous Epith Cells 0 SEEN, Urine Bacteria 1+, Urine Mucus 0 SEEN 02/07/22 08:05: Lactic Acid 1.5 02/07/22 10:30: Troponin I High Sens 164 H* 02/07/22 12:35: Troponin I High Sens 202 H* 02/07/22 12:35: POC Glucose 162 H 02/07/22 16:15: Troponin I High Sens 348 H* 02/07/22 17:25: PT Cancelled, INR Cancelled 02/07/22 17:58: POC Glucose 147 H Micro: Microbiology 02/07/22 09:20 Nasal Secretion SARS-CoV-2 Antigen (Rapid) - Final Radiology Impression Abdomen/Pelvis CT 02/07/22 02:42 IMPRESSION: Negative enhanced CT of the abdomen and pelvis for acute intra-abdominal abnormality. Normal appendix. No ureteral calculus. Electronically Signed: Sam Menard MD at 3:50 EDT , Shoulder X-Ray 02/07/22 02:42 IMPRESSION: Intact right shoulder prosthesis. No demonstrated fracture, dislocation, or destructive osseous lesion. Electronically Signed: Cliff Cortez MD at 4:23 EDT , Chest X-Ray 02/07/22 03:30 IMPRESSION: 1. Mild cardiomegaly. Pacemaker. 2. No evidence for acute cardiopulmonary pathology. Electronically Signed: Cliff Cortez MD at 4:30 EDT , Gallbladder Ultrasound 02/07/22 04:48 IMPRESSION: Gallbladder sludge with distended gallbladder and gallbladder wall thickening and trace pericholecystic fluid with also positive sonographic King''s sign. Findings concerning for underlying cholecystitis. Electronically Signed: Sam Menard MD at 6:22 EDT , Assessment & Plan Assessment/Plan (1) Pancreatitis: QUALIFIERS: Chronicity: acute Pancreatitis type: biliary Acute pancreatitis complication: no infection or necrosis Qualified Code(s): K85.10 - Biliary acute pancreatitis without necrosis or infection PLAN: Pancreatitis likely secondary to choledocholithiasis. He is on IV fluids and has been n.p.o. He can have clear liquids because he cannot receive sufficient IV fluids due to decreased EF to treat his pancreatitis. (2) Choledocholithiasis with acute cholecystitis with obstruction: PLAN: Patient was supposed to get an MRCP however due to his AICD he is not able to get it. He will have a cholecystostomy tube tomorrow we will trend his liver enzymes and liver function tests. He will need cardiac clearance before he can have an ERCP. Charges/Coding Visit Charges Inpatient E&M: 39922 Init Hosp L3
[2022-02-07 18:40] LABS: International Normalized Ratio 1.5; Prothrombin Time (Protime)PT. 17.1 SECONDS (11.7-14.9)
[2022-02-07] MEDS: Albuterol 2.5 MG/3 ML VIAL.NEB. INHALATION (23:28)
[2022-02-08] VITALS (33 sets, daily range): BP systolic 87–150; BP diastolic 51–84; PULSE 88–114; RESP 17–29; TEMP 36.7–37.9; O2SAT 18–96; BMI 27.1
[2022-02-08] MEDS: Piperacil/Tazobactam 3.375 GM/50 ML ML IV ×3 (05:00→21:09)
[2022-02-08 05:22] LABS: Hematocrit 35.8 % (40-54); Hemoglobin 11.5 g/dL (13.0-16.5); Mean Corp Hgb Conc 32.1 g/dL (32-36); Mean Corpuscular Hgb 25.8 pg (27.0-32.0); Mean Corpuscular Volume 80.4 fL (80-94); Mean Platelet Vol. 9.4 fl (6.2-12.0); POSITIVE COUNT YES; POSITIVE MORPHOLOGY YES; Platelet Count 146 K/mm3 (150-450); RBC Distribution Width CV 16.5 % (11.6-14.6); Red Blood Count 4.45 M/mm3 (4.6-6.2); White Blood Count 17.6 K/mm3 (4.4-11.0)
[2022-02-08 05:25] LABS: Differential Indicated MANUAL DIFF
[2022-02-08 05:54] LABS: ALB/GLOB Ratio 0.6 RATIO (0.9-2.4); AST(SGOT) 103 U/L (15-37); Alanine Aminotransfer ALT/SGPT 157 U/L (16-61); Albumin, Serum 2.6 g/dL (3.2-5.0); Alkaline Phosphatase 324 U/L (45-117); Anion Gap 11 (5-15); BUN 33 mg/dL (7-18); BUN/Creat Ratio 15.4 RATIO (10-20); Calcium,Total 8.1 mg/dL (8.5-10.1); Chloride 109 mmol/L (98-107); Creatinine, Serum 2.14 mg/dL (0.70-1.30); EST Glomerular Filtration Rate 32 mL/min (>60); Est Glom Filt Rate - Afr Amer 39 mL/min (>60); Estimated Creatinine Clearance 30.28 ml/min; Globulin 4.3 g/dL (2.2-4.2); Glucose 146 mg/dL (74-106); Potassium 4.3 mmol/L (3.5-5.1); Protein, Total 6.9 g/dL (6.4-8.2); Sodium Level 137 mmol/L (136-145)
--- NOTE | 2022-02-08 06:41 | PN.CC_ITS ---
Assessment & Plan Assessment/Plan (1) Choledocholithiasis with acute cholecystitis with obstruction: (2) Pancreatitis: QUALIFIERS: Chronicity: acute Pancreatitis type: biliary Acute pancreatitis complication: no infection or necrosis Qualified Code(s): K85.10 - Biliary acute pancreatitis without necrosis or infection (3) Ischemic cardiomyopathy: (4) Sepsis: QUALIFIERS: Sepsis type: sepsis due to unspecified organism Sepsis acute organ dysfunction status: without acute organ dysfunction Qualified Code(s): A41.9 - Sepsis, unspecified organism PLAN: RECOMMENDATIONS: 1. Hold fluid boluses for now 2. Await response to Danay tube 3. Await recommendations by GI/surgery 4. Continue empiric antibiotics. Follow-up cultures 5. Monitor oxygenation status closely given CHF 6. Discontinue diabetic medications. Initiate sliding scale with possible basal insulin 7. Potential transfer from ICU pending response to Danay tube IMPRESSIONS: 1. Sepsis Clinical suspicion for gallbladder as potential etiology. Patient also has findings consistent with gallstone pancreatitis without pseudocyst formation on CT scan. Patient has symptomatology of endorgan damage given elevated liver enzymes and slight elevation in creatinine. Patient has received fluid resuscitation. Fortunately, patient has not required pressors at this time. Patient is on minimal supplemental oxygen, so pressors would be indicated if patient became hypotensive. Patient is to have a Danay tube later today. If able to tolerate without significant fever hypotension, potentially transfer from the intensive care unit 2. Acute pancreatitis/cholecystitis secondary to potential gallstone GI and surgery have been consulted. There appears to be some limitation to the ability to be treated with ERCP and surgery. Medical management has been recommended. Await response to Danay tube later today.. We will continue supportive management. Keep n.p.o. Could potentially use fentanyl for pain control from my perspective 3. Chronic systolic CHF Patient's last known ejection fraction was 37% in August 2021. Patient has received significant fluid resuscitation, but still appears to be compensated at this time. We will need to watch patient closely. Patient with minimal nasal cannula oxygen requirements. Patient will require pressors if becomes hypotensive. Continue to hold antihypertensives given patient's sepsis. 4. Chronic kidney disease stage IIIb Slightly worse. Creatinine is slightly up from his baseline. Patient's blood pressure does appear to be slightly improved with fluid resuscitation. We will continue with conservative measures. Patient with no indication for renal replacement therapy at this time. 5. Diabetes mellitus type 2/history of smoking/advanced age Complicates care, management, recovery and prognosis. DC baseline diabeti c meds and cover with sliding scale insulin and potential basal insulin. Patient was confirmed a full CODE STATUS by hospitalist. Subjective Subjective Patient did okay overnight. Patient states his abdominal pain is improved as he is relatively asymptomatic at rest, but still has pain with any movement or palpation. Patient is not reporting any nausea. No vomiting has been reported. Patient's blood pressures have remained adequate overnight. Patient did require 2 L nasal cannula with sleep. Patient reportedly is to have a Danay tube placed later today per surgery recommendations. Objective Data Objective Data Vital Signs: Vital Signs Temp Pulse Resp BP Pulse Ox 37.3 C H 93 23 H 112/83 H 94 02/08/22 04:00 02/08/22 06:00 02/08/22 06:00 02/08/22 06:00 02/08/22 06:00 Oxygen Flow Rate (L/min) 2 Oxygen Delivery Method Nasal Cannula Weight: 83.189 kg Body Mass Index (BMI) 26.8 Intake & Output: Intake and Output for Last 24 Hours 02/06/22 02/07/22 02/08/22 23:59 23:59 23:59 Intake Total 3767.5 / 3767.5 50 / 50 Output Total 1325 / 1325 500 / 500 Balance 2442.5 / 2442.5 -450 / -450 Lab / Micro Data Result Diagrams: 02/08/22 05:10 02/08/22 05:10 Labs: Laboratory Results - last 24 hr 02/07/22 02:21: Diff Path Review Reviewed 02/07/22 08:05: Lactic Acid 1.5 02/07/22 10:30: Troponin I High Sens 164 H* 02/07/22 12:35: Troponin I High Sens 202 H* 02/07/22 12:35: POC Glucose 162 H 02/07/22 16:15: Troponin I High Sens 348 H* 02/07/22 17:25: PT Cancelled, INR Cancelled 02/07/22 17:58: POC Glucose 147 H 02/07/22 18:15: PT 17.1 H, INR 1.5 02/08/22 05:10: WBC 17.6 H, RBC 4.45 L, Hgb 11.5 L, Hct 35.8 L, MCV 80.4, MCH 25.8 L, MCHC 32.1, RDW Std Deviation 48.0 H, RDW Coeff of Pee 16.5 H, Plt Count 146 L, MPV 9.4, Neut % (Auto) Not Reportable 02/08/22 05:10: Sodium 137, Potassium 4.3, Chloride 109 H, Carbon Dioxide 17.0 L , Anion Gap 11, BUN 33 H, Creatinine 2.14 H, Estim Creat Clear Calc 30.28, Est GFR (MDRD) Af Amer 39 L, Est GFR (MDRD) Non-Af 32 L, BUN/Creatinine Ratio 15.4, Glucose 146 H, Calcium 8.1 L, Total Bilirubin 5.10 H, AST 103 H, ALT 157 H, Alkaline Phosphatase 324 H, Total Protein 6.9, Albumin 2.6 L, Globulin 4.3 H, Albumin/Globulin Ratio 0.6 L Micro: Microbiology 02/07/22 09:20 Nasal Secretion SARS-CoV-2 Antigen (Rapid) - Final Physical Exam Const alert and oriented x3 Constitutional Narrative: Hard of hearing General Appearance: cooperative and comfortable HEENT normocephalic, head/scalp atraumatic, hearing grossly normal bilaterally and moist oral mucous membranes Eyes PERRL, EOMs intact bilaterally, conjunctivae normal and no scleral icterus Neck no lymphadenopathy, no JVD and thyroid normal Neck Narrative: No bruising noted at left IJ attempt General: trachea midline Chest Chest Narrative: Left chest defibrillator Resp normal respiratory effort, no retractions, no use of accessory muscles and clear to auscultation bilaterally Cardio regular rate, regular rhythm, S1 normal heart sound and S2 normal heart sound GI Inspection: Negative for abdominal wall ecchymosis or fluid wave present Auscultation: hypoactive bowel sounds Palpation: soft and tender RUQ and King's sign; Negative for ascites Extremity Extremity Narrative: Healing right shoulder wound noted. No fluctuance or surrounding erythema Skin no rashes or lesions noted Neuro Sensorium / Orientation: awake and alert Psych affect normal Charges/Coding Visit Charges Inpatient E&M: 98547 Subs Hosp L3
[2022-02-08 06:45] LABS: Total Cells Counted 100 (MANUAL DIFF)
[2022-02-08 06:46] LABS: Lymphocyte 3 % (19-41); Metamyelocyte 1 % (0-1); Myelocyte 1 % (0-0); Neutrophil-Band 5 % (0-5); Neutrophil-Segmented 84 % (47-70)
[2022-02-08 06:47] LABS: Monocyte 6 % (0-10); Platelet Estimate ADEQUATE (ADEQ); Red Cell Morphology NORM C+C NORMAL (NORM C&C)
[2022-02-08 06:48] LABS: Absolute Lymphocyte Count 0.53 X10^3/uL (0.83-4.51); Absolute Neutrophil Count 15.7 X10^3/uL (2.0-7.7); Lymphocyte # 0.53 X10^3/ul (0.83-4.51); Neutrophil # 15.67 X10^3/uL (2.7-7.7)
[2022-02-08 08:02] LABS: Bedside Glucose 146 mg/dL (74-106)
--- NOTE | 2022-02-08 09:00 | CT_ITS ---
PROCEDURE: CT-guided percutaneous cholecystostomy tube placement. DATE OF EXAMINATION: 02/08/2022 INDICATION: Male, 76 years old. Obstructive choledocholithiasis PHYSICIAN: Dr. Gordy Stahl RADIATION DOSAGE (If Supplied By Facility): SMART step accumulated DLP= ( 683.54 ) mGycm, Total DLP = ( 1814.30 ) mGycm CONSENT: The risks, benefits and alternatives to the procedure were explained to the patient, and the patient agreed to the procedure and signed the consent. SEDATION: 3 mg VERSED. 75 mcg FENTANYL. SEDATION START TIME: 1015 AM SEDATION STOP TIME: 1133 AM STERILE BARRIER TECHNIQUE: The following sterile barrier precautions were used during the procedure: hand hygiene; use of iodine prep; use of a mask, sterile gloves, and a large sterile sheet. PROCEDURE/TECHNIQUE: (All elements of maximal sterile barrier technique followed) The risks, benefits, and alternatives to the procedure were explained to patient, and the patient agreed to the procedure and signed a consent form for the procedure. A timeout was performed to confirm the patient''s identity, the type of procedure, to be performed and the site of entry. Initial slack cooper helical CT images were obtained and a appropriate trajectory was selected. The skin surface was marked. The skin surface was then prepared with sterile technique. Utilizing CT guidance, a 21-gauge introducer needle with inner stylette was placed into the gallbladder. 7 cc of bilious fluid was aspirated into a sterile syringe. A microwire was then placed into the gallbladder. The needle was removed and a 4 [place] dilator/sheath was placed. The microwire was removed and a 0.018 Nitinol guidewire was then placed. The tract was upsized with [place] dilator. Finally, a 8 [place] percutaneous drainage catheter was placed and attached to drainage grenade. Placement was confirmed with CT images. The catheter was secured to the skin surface using secure lock dressing. COMPLICATIONS: None. Patient was returned to the floor in stable condition. BLOOD LOSS: None. SAMPLES: Approximately 7 cc of bilious fluid was aspirated and sent for labs. CT/CT Guidance Abscess Drg w/Cath IMPRESSION: CT-guided percutaneous cholecystostomy tube placement as detailed. Electronically Signed: Gordy Stahl, at 12:43 EDT ,
--- NOTE | 2022-02-08 09:15 | NURSING ---
transferred to CT with jacquard lace weaver at this time
--- NOTE | 2022-02-08 09:50 | ECHOCS_ITS ---
Reason For Study: CAD/ASHD Procedure This was a 2D Doppler, Color Flow transthoracic echocardiogram. The study was technically difficult. Contrast injection was performed. Exam performed portable in ICU/CCU. Left Ventricle Mildly dilated left ventricle. Moderate segmental systolic dysfunction (see wall motion). The estimated ejection fraction is 35 %. Unable to assess diastolic dysfunction. Infero-Basal: Akinetic. Basal inferoseptal: Hypokinetic. Mid-Posterior: Akinetic. Mid-Inferior: Akinetic. Mid-inferoseptal : Akinetic. Mid-anteroseptal : Akinetic. [place] : Akinetic. Right Ventricle Normal RV size. ICD or pacer leads identified within the right ventricle. Normal systolic function. Atria The left atrium is mildly enlarged. Normal right atrium. ICD or pacer leads identified within the right atrium. No doppler evidence for ASD. Mitral Valve There is mild mitral annular calcification. Extension the mitral annular calcification onto the posterior mitral valve leaflet. Mild-Moderate (1-2+) mitral valve insufficiency. Tricuspid Valve Normal tricuspid valve. Mild tricuspid valve insufficiency. Right ventricular systolic pressure estimated to be 45 mmHg. Aortic Valve Trisinus/trileaflet aortic valve. Mild focal aortic valve calcification. Pulmonic Valve The pulmonic valve is not well visualized. Great Vessels Normal sized aortic root. Pericardium/Pleural No pericardial effusion. Medication Diluted definity 2ml given slow IV push to enhance endocardial definition. MMode/2D Measurements & Calculations LVIDd: 5.5 cm IVSd: 0.90 cm Ao root diam: 3.2 cm LVIDs: 4.2 cm LVPWd: 1.1 cm RVDd: 3.9 cm FS: 22.6 % LAV(MOD-bp): 60.4 ml LVAd ap4: 45.8 cm2 SV(MOD-sp4): 64.6 ml LAV(MOD-bp) Indexed: 30.4 ml/m2 LVLd ap4: 8.9 cm LAV(MOD-sp2): 66.8 ml EDV(MOD-sp4): 192.7 ml LAV(MOD-sp4): 53.7 ml EDV(sp4-el): 199.6 ml LVAs ap4: 35.3 cm2 LVLs ap4: 8.0 cm ESV(MOD-sp4): 128.1 ml ESV(sp4-el): 131.9 ml EF(MOD-sp4): 33.5 % EF(sp4-el): 34.0 % SV(sp4-el): 67.8 ml LA A4 area: 19.5 cm2 LA dimension(2D): 4.0 cm RA A4 area: 17.2 cm2 Doppler Measurements & Calculations MV E max brynn: 157.9 cm/sec Ao V2 max: 133.4 cm/sec LV V1 max: 94.3 cm/sec Ao max P.1 mmHg LV V1 max P.6 mmHg PA V2 max: 92.5 cm/sec TR max brynn: 325.7 cm/sec TR max P.4 mmHg ECHO/Echo Complete W/ Contrast Interpretation Summary The study was technically difficult. Contrast injection was performed. Mildly dilated left ventricle. Moderate segmental systolic dysfunction (see wall motion). The estimated ejection fraction is 35 %. The left atrium is mildly enlarged. There is mild mitral annular calcification. Extension the mitral annular calcification onto the posterior mitral valve leaf let. Mild-Moderate (1-2+) mitral valve insufficiency. Mild tricuspid valve insufficiency. Mild focal aortic valve calcification. Right ventricular systolic pressure estimated to be 45 mmHg. Unable to assess diastolic dysfunction. ICD or pacer leads identified within the right atrium ICD or pacer leads identified within the right ventricle. Ordering Physician: Tommie Guevara Referring Physician: CHENG RANGEL Performed By: Ely Quintero, KANE
[2022-02-08] MEDS: Midazolam 2 MG/2 ML Syringe IV ×3 (10:15→11:26)
[2022-02-08] MEDS: fentaNYL 100 MCG/2 ML Ampul IV ×3 (10:18→11:22)
--- NOTE | 2022-02-08 10:42 | PN.HOSP_ITS ---
Subjective Subjective Feeling better. Still with abdominal pain. Objective Data Objective Data Vital Signs: Vital Signs Temp Pulse Resp BP Pulse Ox 37.9 C H 95 28 H 123/58 H 95 02/08/22 09:34 02/08/22 09:36 02/08/22 09:36 02/08/22 09:36 02/08/22 09:36 Oxygen Flow Rate (L/min) 2 Oxygen Delivery Method Nasal Cannula Weight: 83.189 kg Body Mass Index (BMI) 27.1 Intake & Output: Intake and Output for Last 24 Hours 02/06/22 02/07/22 02/08/22 23:59 23:59 23:59 Intake Total 3767.5 / 3767.5 100 / 100 Output Total 1325 / 1325 750 / 750 Balance 2442.5 / 2442.5 -650 / -650 Lab / Micro Data Result Diagrams: 02/08/22 05:10 02/08/22 05:10 Labs: Laboratory Results - last 24 hr 02/07/22 02:21: Diff Path Review Reviewed 02/07/22 10:30: Troponin I High Sens 164 H* 02/07/22 12:35: Troponin I High Sens 202 H* 02/07/22 12:35: POC Glucose 162 H 02/07/22 16:15: Troponin I High Sens 348 H* 02/07/22 17:25: PT Cancelled, INR Cancelled 02/07/22 17:58: POC Glucose 147 H 02/07/22 18:15: PT 17.1 H, INR 1.5 02/07/22 23:40: POC Glucose 146 H 02/08/22 05:10: WBC 17.6 H, RBC 4.45 L, Hgb 11.5 L, Hct 35.8 L, MCV 80.4, MCH 25.8 L, MCHC 32.1, RDW Std Deviation 48.0 H, RDW Coeff of Pee 16.5 H, Plt Count 146 L, MPV 9.4, Neut % (Auto) Not Reportable, Absolute Neuts (auto) 15.7 H, Absolute Lymphs (auto) 0.53 L, Total Counted 100, Neutrophils % (Manual) 84 H, Band Neutrophils % 5, Lymphocytes % (Manual) 3 L, Monocytes % (Manual) 6, Metamyelocytes % 1, Myelocytes % 1 H, Diff Path Review May foll, Platelet Estimate ADEQUATE, RBC Morphology NORM C+C 02/08/22 05:10: Sodium 137, Potassium 4.3, Chloride 109 H, Carbon Dioxide 17.0 L , Anion Gap 11, BUN 33 H, Creatinine 2.14 H, Estim Creat Clear Calc 30.28, Est GFR (MDRD) Af Amer 39 L, Est GFR (MDRD) Non-Af 32 L, BUN/Creatinine Ratio 15.4, Glucose 146 H, Calcium 8.1 L, Total Bilirubin 5.10 H, AST 103 H, ALT 157 H, Alkaline Phosphatase 324 H, Total Protein 6.9, Albumin 2.6 L, Globulin 4.3 H, Albumin/Globulin Ratio 0.6 L Micro: Microbiology 02/07/22 09:20 Nasal Secretion SARS-CoV-2 Antigen (Rapid) - Final Physical Exam Const alert and no apparent distress Resp normal respiratory effort, no retractions, no use of accessory muscles and clear to auscultation bilaterally Cardio regular rate, regular rhythm, S1 normal heart sound and S2 normal heart sound GI normal to inspection, nondistended, normoactive bowel sounds, soft to palpation, non-tender and non-distended Extremity normal to inspection Skin no rashes or lesions noted Neuro Sensorium / Orientation: awake and alert Assessment & Plan Assessment/Plan (1) Choledocholithiasis with acute cholecystitis with obstruction: (2) Sepsis: QUALIFIERS: Sepsis type: sepsis due to unspecified organism Sepsis acute organ dysfunction status: without acute organ dysfunction Qualified Code(s): A41.9 - Sepsis, unspecified organism (3) Pancreatitis: QUALIFIERS: Chronicity: acute Pancreatitis type: biliary Acute pancreatitis complication: no infection or necrosis Qualified Code(s): K85.10 - Biliary acute pancreatitis without necrosis or infection (4) Transaminitis: PLAN: 1. Sepsis Improved Secondary to cholecystitis On Pipracil/tazobactam Received 3 L of IV fluids in the emergency room Continue with IV fluids Check blood cultures as they are not checked in the emergency room. Patient blood pressure is tenuous and there is high concern that patient could decline quickly so patient will be least monitored in ICU for the day. 2. Acute cholecystitis With choledocholithiasis GI on consult for potential ERCP, MRCP cannot be performed least immediately due to the patient's AICD General surgery on consult for cholecystitis. Got hold off on cardiac clearance at this point time as patient is hemodynamically tenuous. Mimi tube ordered DW Dr. Otto, will need cardiac clearance for ERCP. 3. Pancreatitis Secondary to above Supportive management No evidence of necrosis 4. Transaminitis Secondary to above Monitor 6. Chronic heart failure with reduced ejection fraction Compensated this time EF from September 15, 2021 was at 37% Monitor closely with the large quantities of fluid patient is receiving 4 decompensation 7. CKD 3B Creatinine up slightly from his baseline Monitor for now 8. Diabetes mellitus type 2 Hold his home meds 9. VTE prophylaxis with SCDs 10. COVID-19 vaccination status: Patient is vaccinated and boosted 11. CODE STATUS: Addressed with the patient. Patient is full CODE STATUS. Sign scale insulin 12. Elevated troponins likely demand Charges/Coding Visit Charges Inpatient E&M: 33540 Subs Hosp L2
[2022-02-08] MEDS: Lidocaine 2% (20 ml mdv) 20 ML Vial INFILT (10:50)
--- NOTE | 2022-02-08 11:00 | FLU_PTH ---
PATIENT: VASHTI LIMA LOC: ICU U#:[id number] AGE/SX: 76/M ROOM: ICU05 RE02/07/[address]: Dr. Tristin Martin DO : 1945 BED: 1 DIS: 02/10/2022 SPEC #: [id number] RECD: 02/08/22 12:50 STATUS: SOUT REQ #: [id number] CHIDI: 02/08/22 11:[address]: Ryley Ngo DEPT: CYTOLOGY RECD BY: Graciela Jane ENTERED: 02/09/22 08:52 SP TYPE: Fluid OTHR DR: MD Dr. Delgado Manuel DO Dr. Daniel Peabody, MD Dr. Eric Jopperi, DO Dr. Liza D Talampas, MD Dr. Paul Moodispaw, MD Christina Muller, FACILITY SUPERVISOR-C Tissues: Gallbladder, NOS Procedures: Special Stain Group II Surgery Specimen Level III Surgery Specimen Level IV Cytospin Fluid Comments: @ Ordering doctor for SSII edited from to DR.DPEABO Giles by KARI at 02/09/22 144 @ Ordering doctor for SUIII edited from to DR.DPEABO Giles by KARI at 02/09/22 1448 @ Ordering doctor for SUIV edited from to DR.DPEABO Chan PIERCE at 02/09/22 1448 @ Ordering doctor for CYSPIN edited from to DR.DPEABO Giles by KARI at 02/09/22 1448 @ Submitting doctor edited from to DR.DPEABO Chan PIERCE at 02/09/22 1448 HEADER OPERATION: CT-guided cristy drain placement PRE-OP DIAGNOSIS: Cholecystitis TISSUE SUBMITTED: Cholecystostomy tube fluid for cytology DIAGNOSIS CYTOLOGY Cholecystostomy tube fluid for cytology (cytospin and cell block): Negative for malignant cells. See comment. MAGDI:hetal 02/10/2022 COMMENT The specimen is virtually acellular. Clinical correlation is suggested. CYTOLOGY STUDY Slides are reviewed. CYTOLOGY GROSS Received is 10 ml of dark greenish-black fluid labeled with the patient's name and and designated per the requisition as cholecystostomy. Submitted for cytology preparation including cell block. / hetal 02/09/2022 TC:5 CPT: 40242, 48434
--- NOTE | 2022-02-08 11:04 | PN.SURG_ITS ---
Subjective Subjective Patient actively undergoing cholecystostomy tube placement down in CAT scan. Objective Data Objective Data Vital Signs: Vital Signs Temp Pulse Resp BP Pulse Ox 100.3 F H 95 28 H 123/58 H 95 02/08/22 09:34 02/08/22 09:36 02/08/22 09:36 02/08/22 09:36 02/08/22 09:36 Oxygen Flow Rate (L/min) 2 Oxygen Delivery Method Nasal Cannula Weight: 183 lb 6.4 oz Body Mass Index (BMI) 27.1 Intake & Output: Intake and Output for Last 24 Hours 02/06/22 02/07/22 02/08/22 23:59 23:59 23:59 Intake Total 3767.5 / 3767.5 100 / 100 Output Total 1325 / 1325 750 / 750 Balance 2442.5 / 2442.5 -650 / -650 Lab / Micro Data Result Diagrams: 02/08/22 05:10 02/08/22 05:10 Labs: Laboratory Results - last 24 hr 02/07/22 02:21: Diff Path Review Reviewed 02/07/22 12:35: Troponin I High Sens 202 H* 02/07/22 12:35: POC Glucose 162 H 02/07/22 16:15: Troponin I High Sens 348 H* 02/07/22 17:25: PT Cancelled, INR Cancelled 02/07/22 17:58: POC Glucose 147 H 02/07/22 18:15: PT 17.1 H, INR 1.5 02/07/22 23:40: POC Glucose 146 H 02/08/22 05:10: WBC 17.6 H, RBC 4.45 L, Hgb 11.5 L, Hct 35.8 L, MCV 80.4, MCH 25.8 L, MCHC 32.1, RDW Std Deviation 48.0 H, RDW Coeff of Pee 16.5 H, Plt Count 146 L, MPV 9.4, Neut % (Auto) Not Reportable, Absolute Neuts (auto) 15.7 H, Absolute Lymphs (auto) 0.53 L, Total Counted 100, Neutrophils % (Manual) 84 H, Band Neutrophils % 5, Lymphocytes % (Manual) 3 L, Monocytes % (Manual) 6, Metamyelocytes % 1, Myelocytes % 1 H, Diff Path Review May foll, Platelet Estimate ADEQUATE, RBC Morphology NORM C+C 02/08/22 05:10: Sodium 137, Potassium 4.3, Chloride 109 H, Carbon Dioxide 17.0 L , Anion Gap 11, BUN 33 H, Creatinine 2.14 H, Estim Creat Clear Calc 30.28, Est GFR (MDRD) Af Amer 39 L, Est GFR (MDRD) Non-Af 32 L, BUN/Creatinine Ratio 15.4, Glucose 146 H, Calcium 8.1 L, Total Bilirubin 5.10 H, AST 103 H, ALT 157 H, Alkaline Phosphatase 324 H, Total Protein 6.9, Albumin 2.6 L, Globulin 4.3 H, Albumin/Globulin Ratio 0.6 L Micro: Microbiology 02/07/22 09:20 Nasal Secretion SARS-CoV-2 Antigen (Rapid) - Final Assessment & Plan Assessment/Plan (1) Choledocholithiasis with acute cholecystitis with obstruction: PLAN: We will see how patient response to cholecystostomy tube. No surgical interventions from my standpoint are planned in the near future.
[2022-02-08] MEDS: Insulin Lispro 100 UNIT/ML INSULN.PEN SC ×2 (12:47→22:25)
[2022-02-08 13:31] LABS: Bedside Glucose 167 mg/dL (74-106)
--- NOTE | 2022-02-08 14:20 | NURSING ---
report given to WASHINGTON Galan on PCU at this time
--- NOTE | 2022-02-08 14:35 | NURSING ---
pt transferred to PCU at this time in chair on monitor.
[2022-02-08 15:51] LABS: Bedside Glucose 148 mg/dL (74-106)
--- NOTE | 2022-02-08 17:32 | PN_ITS ---
Subjective Subjective Patient underwent cholecystostomy tube placement today. He is having good output from the cholecystostomy tube. It is mostly bilious fluid. He has not had any abdominal pain. His right shoulder pain has also improved. He is eating without any abdominal pain. Objective Data Objective Data Vital Signs: Vital Signs Temp Pulse Resp BP Pulse Ox 98.1 F 92 18 103/64 94 02/08/22 14:41 02/08/22 15:36 02/08/22 14:41 02/08/22 14:41 02/08/22 14:41 Oxygen Flow Rate (L/min) [17] 2 Oxygen Flow Rate (L/min) [16] 2 Oxygen Flow Rate (L/min) [15] 2 Oxygen Flow Rate (L/min) [14] 2 Oxygen Flow Rate (L/min) [13] 2 Oxygen Flow Rate (L/min) [12] 2 Oxygen Flow Rate (L/min) [11] 2 Oxygen Flow Rate (L/min) [10] 2 Oxygen Flow Rate (L/min) [9] 2 Oxygen Flow Rate (L/min) [8] 2 Oxygen Flow Rate (L/min) [7] 2 Oxygen Flow Rate (L/min) [6] 2 Oxygen Flow Rate (L/min) [5] 2 Oxygen Flow Rate (L/min) [4] 2 Oxygen Flow Rate (L/min) [3] 2 Oxygen Flow Rate (L/min) [2] 2 Oxygen Flow Rate (L/min) [1 ( 2 Initial Baseline)] Oxygen Flow Rate (L/min) 3 Oxygen Delivery Method [17] Nasal Cannula Oxygen Delivery Method [16] Nasal Cannula Oxygen Delivery Method [15] Nasal Cannula Oxygen Delivery Method [14] Nasal Cannula Oxygen Delivery Method [13] Nasal Cannula Oxygen Delivery Method [12] Nasal Cannula Oxygen Delivery Method [11] Nasal Cannula Oxygen Delivery Method [10] Nasal Cannula Oxygen Delivery Method [9] Nasal Cannula Oxygen Delivery Method [8] Nasal Cannula Oxygen Delivery Method [7] Nasal Cannula Oxygen Delivery Method [6] Nasal Cannula Oxygen Delivery Method [5] Nasal Cannula Oxygen Delivery Method [4] Nasal Cannula Oxygen Delivery Method [3] Nasal Cannula Oxygen Delivery Method [2] Nasal Cannula Oxygen Delivery Method [1 ( Nasal Cannula Initial Baseline)] Oxygen Delivery Method Nasal Cannula Weight: 183 lb 6.4 oz Body Mass Index (BMI) 27.1 Intake & Output: Intake and Output for Last 24 Hours 02/06/22 02/07/22 02/08/22 23:59 23:59 23:59 Intake Total 3767.5 / 3767.5 192.25 / 192.25 Output Total 1325 / 1325 900 / 900 Balance 2442.5 / 2442.5 -707.75 / -707.75 Lab / Micro Data Result Diagrams: 02/08/22 05:10 02/08/22 05:10 Labs: Laboratory Results - last 24 hr 02/07/22 17:25: PT Cancelled, INR Cancelled 02/07/22 17:58: POC Glucose 147 H 02/07/22 18:15: PT 17.1 H, INR 1.5 02/07/22 23:40: POC Glucose 146 H 02/08/22 05:10: WBC 17.6 H, RBC 4.45 L, Hgb 11.5 L, Hct 35.8 L, MCV 80.4, MCH 25.8 L, MCHC 32.1, RDW Std Deviation 48.0 H, RDW Coeff of Pee 16.5 H, Plt Count 146 L, MPV 9.4, Neut % (Auto) Not Reportable, Absolute Neuts (auto) 15.7 H, Absolute Lymphs (auto) 0.53 L, Total Counted 100, Neutrophils % (Manual) 84 H, Band Neutrophils % 5, Lymphocytes % (Manual) 3 L, Monocytes % (Manual) 6, Metamyelocytes % 1, Myelocytes % 1 H, Diff Path Review March, Platelet Estimate ADEQUATE, RBC Morphology NORM C+C 02/08/22 05:10: Sodium 137, Potassium 4.3, Chloride 109 H, Carbon Dioxide 17.0 L , Anion Gap 11, BUN 33 H, Creatinine 2.14 H, Estim Creat Clear Calc 30.28, Est GFR (MDRD) Af Amer 39 L, Est GFR (MDRD) Non-Af 32 L, BUN/Creatinine Ratio 15.4, Glucose 146 H, Calcium 8.1 L, Total Bilirubin 5.10 H, AST 103 H, ALT 157 H, Alkaline Phosphatase 324 H, Total Protein 6.9, Albumin 2.6 L, Globulin 4.3 H, Albumin/Globulin Ratio 0.6 L 02/08/22 12:42: POC Glucose 167 H 02/08/22 15:45: POC Glucose 148 H Micro: Microbiology 02/07/22 09:20 Nasal Secretion SARS-CoV-2 Antigen (Rapid) - Final Radiography Diagnostic Testing: Radiology Impression Abscess Drainage CT 02/08/22 09:00 IMPRESSION: CT-guided percutaneous cholecystostomy tube placement as detailed. Electronically Signed: Gordy Stahl, at 12:43 EDT , Echocardiogram 02/08/22 09:50 Interpretation Summary The study was technically difficult. Contrast injection was performed. Mildly dilated left ventricle. Moderate segmental systolic dysfunction (see wall motion). The estimated ejection fraction is 35 %. The left atrium is mildly enlarged. There is mild mitral annular calcification. Extension the mitral annular calcification onto the posterior mitral valve leaflet. Mild-Moderate (1-2+) mitral valve insufficiency. Mild tricuspid valve insufficiency. Mild focal aortic valve calcification. Right ventricular systolic pressure estimated to be 45 mmHg. Unable to assess diastolic dysfunction. ICD or pacer leads identified within the right atrium ICD or pacer leads identified within the right ventricle. Ordering Physician: Tommie Guevara Referring Physician: CHENG RANGEL Performed By: Ely Quintero RDCS Physical Exam GI GI Narrative: Cholecystostomy tube in place Palpation: soft Assessment & Plan Assessment/Plan (1) Choledocholithiasis with acute cholecystitis with obstruction: PLAN: Patient is doing well with cholecystostomy tube. His white blood count and LFTs are still climbing. If he gets clearance from cardiology and is okay by anesthesia I can perform ERCP while he is an inpatient. Continue antibiotic therapy. Charges/Coding Visit Charges Inpatient E&M: 80784 Subs Hosp L2
--- NOTE | 2022-02-08 19:21 | CON.PCM.CA_ITS ---
Assessment & Plan Assessment/Plan (1) Abnormal cardiac enzyme level: PLAN: The patient does have abnormal cardiac enzymes. This may be secondary to a type II event brought out by his noncardiovascular condition superimposed upon his underlying cardiovascular disease process. At the present time its not unreasonable to monitor his enzymes and his electrocardiogram for any obvious changes. He has undergone evaluation with a transthoracic echocardiogram which appears to be similar to previous transthoracic echocardiogram reports. He should continue cardiovascular medical therapy/support as he is able based upon his ongoing comorbidities and vital sign changes. (2) Atherosclerotic heart disease of [place] coronary artery without angina pectoris: QUALIFIERS: [place] vs. transplanted heart: [place] heart Qualified Code(s): I25.10 - Atherosclerotic heart disease of [place] coronary artery without angina pectoris PLAN: The patient does have a history of underlying CAD. He has undergone previous RCA PCI as noted. At the moment he has been treated medically as an outpatient. Again his cardiac enzyme findings may be secondary to a type II event brought out by his noncardiovascular condition superimposed upon his underlying cardiovascular disease process. At the present time it be reasonable to continue to monitor his noninvasive findings. Would also be reasonable to continue medical therapy as he is able. Ideally this would include his aspirin therapy, his beta-rupali, his afterload reducing agents, and his lipid-lowering agents-as he is able based upon his acute c omorbidities and his vital sign changes. (3) History of coronary artery stent placement: PLAN: The patient underwent devious RCA PCI in 2000 as noted above. At the present time he has been treated medically as an outpatient. He should continue noninvasive valuation care as noted above. (4) Ischemic cardiomyopathy: PLAN: The patient has a history of an underlying ischemic mediated cardiomyopathy. This is been reassessed with a transthoracic echocardiogram. The findings are similar to his previous noninvasive studies. (5) CHF (congestive heart failure): PLAN: The patient does not appear to have any evidence of acute systolic CHF at this time. He does need to be monitored for any obvious evidence of volume overload as he has received IV fluids and is currently without his diuretic therapy. Medications such as his diuretics and afterload reducing agents should be considered to be restarted as soon as he is able to based upon his comorbidities with respect to concerns of his renal function as well as his vital signs, etc. (6) History of implantable cardiac defibrillator (ICD): PLAN: The patient does have an ICD in place. It was interrogated in November of this year. It was reported as functioning appropriately. (7) Pure hypercholesterolemia: PLAN: The patient has been on statin therapy in the past. It appears this is on hold at this time secondary to his transaminitis. Hopefully this can be restarted in the future. (8) Choledocholithiasis with acute cholecystitis with obstruction: PLAN: The patient is a study cholecystostomy tube. He has been recommended by gastroenterology for consideration for an ERCP. (9) Pancreatitis: QUALIFIERS: Chronicity: acute Pancreatitis type: biliary Acute pancreatitis complication: no infection or necrosis Qualified Code(s): K85.10 - Biliary acute pancreatitis without necrosis or infection PLAN: Since pancreatitis, per his medical records, is thought to be related to his underlying gallbladder related disease. He is continuing evaluation and care as noted. (10) Transaminitis: PLAN: The patient's hepatic studies will need to be followed over time. Hopefully in the future they will normalize and he can restart medical therapy such as his statins. Addt'l Comments Overall, from a cardiac standpoint, at the present time, the patient will continue to be monitored. He should continue medical management as he is able with consideration of restarting agents such as his diuretics, JIGNESH inhibitors, statins, etc. when he is able from his comorbidities which does include his underlying gastrointestinal related disease process and his renal function, etc. In the interim it does not appear he requires additional noninvasive or invasive cardiovascular studies. He should be able to proceed with his gastroenterology evaluation and care as deemed appropriate with close monitoring of his vital signs with avoidance of significant fluctuations in his blood pressure as well as avoidance of IV volume overload that could bring out acute CHF/pulmonary edema. He will need continued monitoring of his cardiac rate and rhythm during this time. The patient's case has been discussed and reviewed with the patient and his spouse. The patient's primary seat mender Dr. Parrish has also been updated. This note was generated using a voice recognition system and there may be incorrect words, spelling or punctuation that were not noted when reviewing the office note prior to saving. HPI Consult Data Date of Consult: 02/08/22 HPI Narrative HPI Narrative: VASHTI LIMA, is a 76 year old white male who presents for cardiovascular consultation based upon concerns of underlying abnormal cardiac enzymes, CAD, previous revascularization therapy/PCI, ischemic mediated cardiomyopathy, chronic systolic CHF, status post ICD placement, and hyperlipidemia, now superimposed upon underlying acute cholecystitis, acute pancreatitis, and acute transaminitis requiring internal medicine evaluation, gastroenterology evaluation, general surgery evaluation, pulmonology/critical care medicine evaluation, and subsequent placement of a cholecystostomy tube (CT-guided) this day and pending possible future ERCP. According to the patient and his spouse he has had diminished appetite and progressive weakness. His spouse states she wanted to bring him to the emerg ency department sooner than he allowed. However he did present on 02-07-2022. He was noted during his evaluation to become hypotensive. He required IV fluids. He underwent additional evaluation which further define his gallbladder related disease process. He was subsequently placed on IV antibiotic therapy. He was recommended for further inpatient evaluation and care. It does not appear that he has been complaining of ongoing chest discomfort suspicious for angina pectoris. There is been no evidence of recent acute CHF superimposed upon his chronic CHF with respect to acute orthopnea, PND, or worsening peripheral pitting edema. There is been no report of recent near- syncope or syncope or ICD discharge. As part of his evaluation he did have cardiac enzymes performed which were noted to be elevated. His ECG demonstrated the appearance of a wide-complex rhythm potentially compatible with an accelerated junctional rhythm with a right bundle branch block pattern. He is also undergone further evaluation with a transthoracic echocardiogram with the results as noted below. He did have his ICD interrogated on 12-22-2021. At that time was noted to report an underlying rhythm of being P synchronous paced at 70 ppm's with ventricular pacing at 97% of the time with a battery life of approximately 9 years and a report of normal remote ICD function. He appears to have undergone his CT-guided cholecystostomy tube placement this day without any obvious adverse cardiovascular events. [facility] Medical History (Updated 02/08/22 @ 19:[address] Tommie Guevara MD) Abnormal cardiac enzyme level Atherosclerotic heart disease of [place] coronary artery without angina pectoris CHF (congestive heart failure) Ischemic cardiomyopathy Old inferior wall myocardial infarction Pure hypercholesterolemia Sustained ventricular tachycardia (09/2018) Type 2 diabetes mellitus Home Medications carvedilol 25 mg PO BID 09/04/17 [History Last Taken 09/21/17] multivitamin 1 ea PO DAILY 09/04/17 [History Last Taken Unknown] cholecalciferol (vitamin D3) 50 mcg (2,000 unit) capsule 3,000 unit PO QDAY cap 02/15/18 [History Last Taken Unknown] lisinopril 40 mg tablet 40 mg PO QDAY 02/15/18 [History Last Taken Unknown] melatonin 5 mg capsule 10 mg PO QHS ea 02/15/18 [History Last Taken Unknown] gabapentin 400 mg capsule 600 mg PO BID cap 04/04/19 [History Last Taken Unknown] magnesium oxide 420 mg PO DAILY 10/18/19 [History Last Taken Unknown] omeprazole 40 mg PO DAILY 10/18/19 [History Last Taken Unknown] rosuvastatin 40 mg PO QHS 10/18/19 [History Last Taken Unknown] aspirin 81 mg tablet,delayed release 81 mg PO DAILY 10/22/19 [History Last Taken Unknown] empagliflozin 25 mg tablet 25 mg PO DAILY 10/22/19 [History Last Taken Unknown] insulin glargine 100 unit/mL subcutaneous solution 25 unit SC DAILY ml 06/04/20 [History Last Taken Unknown] metformin 500 mg tablet 500 mg PO BID tab 06/04/20 [History Last Taken Unknown] pyridoxine (vitamin B6) 100 mg tablet 100 mg PO DAILY 01/19/22 [History Last Taken Unknown] semaglutide [Ozempic] 0.5 mg SUBCUT QWEEK 02/07/22 [History Last Taken 01/31/22] Allergy/AdvReac Type Severity Reaction Status Date / Time amitriptyline Allergy Unknown Verified 02/07/22 01:50 carisoprodol Allergy Unknown Verified 02/07/22 01:50 ibuprofen [From Advil] Allergy HYPERTENSIO Verified 02/07/22 01:50 N etodolac AdvReac Diarrhea Verified 02/07/22 01:50 furosemide AdvReac DIZZY Verified 02/07/22 01:50 meloxicam [From Mobic] AdvReac Unknown Verified 02/07/22 01:50 topiramate AdvReac Other Verified 02/07/22 01:50 Family History Father , age 75 pancreatic cancer Pancreatic cancer Mother , Age 99. Cardiac pacemaker in situ Sister , age 67 from CVA CVA (cerebral vascular accident) Surgical History History of coronary artery stent placement (03/08/01) History of implantable cardiac defibrillator (ICD) (09/21/17) History of left knee replacement (2013) History of right knee joint replacement (11/2019) Hx of cataract extraction Hx of shoulder replacement Hx of shoulder surgery lumbar nerve ablation (04/2020) S/P herniorrhaphy Social History household members: spouse Smoking Status: Former smoker pack-years: 40 how long ago did patient quit smoking: Quit 09/27/1990, smoked 2 ppd x 20 years alcohol intake: current alcohol intake frequency: a few times a month substance use type: does not use ROS Constitutional Constitutional: Reports fatigue and other Details: Decreased appetite Eyes Eyes: Reports as per HPI ENT HEENT: Reports as per HPI Cardiovascular Cardiovascular: Reports fatigue Respiratory/Chest Respiratory/Chest: Reports as per HPI Gastrointestinal Gastrointestinal: Reports as per HPI Genitourinary Genitourinary: Reports as per HPI Musculoskeletal Musculoskeletal: Reports as per HPI Neurologic Neurologic: Reports as per HPI Physical Exam Const alert, oriented x3 and no apparent distress Orientation / Consciousness: awake HEENT normocephalic, head/scalp atraumatic and hearing grossly normal bilaterally Eyes PERRL, EOMs intact bilaterally and conjunctivae normal Neck full ROM, supple and no JVD Resp clear to auscultation bilaterally Cardio regular rate, regular rhythm, S1 normal heart sound and S2 normal heart sound GI GI Narrative: Positive bowel sounds: Tender to palpation Extremity no pedal edema Skin no rashes or lesions noted Neuro oriented x3, moves all extremities, no focal motor deficits and no sensory deficits noted Psych mental status grossly normal Risk Stratification Risk Stratification Applicable: Yes Age >/= 65: Yes >/= 3 CAD Risk Factors (HTN, HLD, DM, family hx of CAD, or current smoker): No Aspirin Use in the Past 7 Days: Yes Severe Angina (>/= episodes in 24 hours): No EKG ST Changes >/= 0.5mm: No Positive Cardiac Marker: Yes REBA Risk Stratification Score: 3 REBA % Risk: 13% Risk Procedure Criteria Type of Procedure Procedure Type: Elective Elective Risks - COVID COVID Risk Discussion: The surgeon/proceduralist and patient have discussed in detail the risk of exposure to and/or potential harm posed by the COVID-19 virus with having a surgery/procedure at this time versus the risk of delaying the surgery/procedure. It is not possible to know either the risk of delaying the surgery or procedure or chance of getting an infection with perfect accuracy, but a joint decision was made between the patient and the surgeon/proceduralist to proceed at this time with the scheduled surgery/procedure as indicated on the consent form. Objective Data Vital Signs: Vital Signs Temp Pulse Resp BP Pulse Ox 98.1 F 92 18 103/64 94 02/08/22 14:41 02/08/22 15:36 02/08/22 14:41 02/08/22 14:41 02/08/22 14:41 Oxygen Flow Rate (L/min) [17] 2 Oxygen Flow Rate (L/min) [16] 2 Oxygen Flow Rate (L/min) [15] 2 Oxygen Flow Rate (L/min) [14] 2 Oxygen Flow Rate (L/min) [13] 2 Oxygen Flow Rate (L/min) [12] 2 Oxygen Flow Rate (L/min) [11] 2 Oxygen Flow Rate (L/min) [10] 2 Oxygen Flow Rate (L/min) [9] 2 Oxygen Flow Rate (L/min) [8] 2 Oxygen Flow Rate (L/min) [7] 2 Oxygen Flow Rate (L/min) [6] 2 Oxygen Flow Rate (L/min) [5] 2 Oxygen Flow Rate (L/min) [4] 2 Oxygen Flow Rate (L/min) [3] 2 Oxygen Flow Rate (L/min) [2] 2 Oxygen Flow Rate (L/min) [1 ( 2 Initial Baseline)] Oxygen Flow Rate (L/min) 3 Oxygen Delivery Method [17] Nasal Cannula Oxygen Delivery Method [16] Nasal Cannula Oxygen Delivery Method [15] Nasal Cannula Oxygen Delivery Method [14] Nasal Cannula Oxygen Delivery Method [13] Nasal Cannula Oxygen Delivery Method [12] Nasal Cannula Oxygen Delivery Method [11] Nasal Cannula Oxygen Delivery Method [10] Nasal Cannula Oxygen Delivery Method [9] Nasal Cannula Oxygen Delivery Method [8] Nasal Cannula Oxygen Delivery Method [7] Nasal Cannula Oxygen Delivery Method [6] Nasal Cannula Oxygen Delivery Method [5] Nasal Cannula Oxygen Delivery Method [4] Nasal Cannula Oxygen Delivery Method [3] Nasal Cannula Oxygen Delivery Method [2] Nasal Cannula Oxygen Delivery Method [1 ( Nasal Cannula Initial Baseline)] Oxygen Delivery Method Nasal Cannula Weight: 183 lb 6.4 oz Body Mass Index (BMI) 27.1 Intake & Output: Intake and Output for Last 24 Hours 02/06/22 02/07/22 02/08/22 23:59 23:59 23:59 Intake Total 3767.5 / 3767.5 692.25 / 692.25 Output Total 1325 / 1325 1150 / 1150 Balance 2442.5 / 2442.5 -457.75 / -457.75 Lab / Micro Data Result Diagrams: 02/08/22 05:10 02/08/22 05:10 Labs: Laboratory Results - last 24 hr 02/07/22 23:40: POC Glucose 146 H 02/08/22 05:10: WBC 17.6 H, RBC 4.45 L, Hgb 11.5 L, Hct 35.8 L, MCV 80.4, MCH 25.8 L, MCHC 32.1, RDW Std Deviation 48.0 H, RDW Coeff of Pee 16.5 H, Plt Count 146 L, MPV 9.4, Neut % (Auto) Not Reportable, Absolute Neuts (auto) 15.7 H, Absolute Lymphs (auto) 0.53 L, Total Counted 100, Neutrophils % (Manual) 84 H, Band Neutrophils % 5, Lymphocytes % (Manual) 3 L, Monocytes % (Manual) 6, Metamyelocytes % 1, Myelocytes % 1 H, Diff Path Review March, Platelet Estimate ADEQUATE, RBC Morphology NORM C+C 02/08/22 05:10: Sodium 137, Potassium 4.3, Chloride 109 H, Carbon Dioxide 17.0 L , Anion Gap 11, BUN 33 H, Creatinine 2.14 H, Estim Creat Clear Calc 30.28, Est GFR (MDRD) Af Amer 39 L, Est GFR (MDRD) Non-Af 32 L, BUN/Creatinine Ratio 15.4, Glucose 146 H, Calcium 8.1 L, Total Bilirubin 5.10 H, AST 103 H, ALT 157 H, Alkaline Phosphatase 324 H, Total Protein 6.9, Albumin 2.6 L, Globulin 4.3 H, Albumin/Globulin Ratio 0.6 L 02/08/22 12:42: POC Glucose 167 H 02/08/22 15:45: POC Glucose 148 H Cardiology Labs/Tests 02/08/22 05:10: WBC 17.6 H, RBC 4.45 L, Hgb 11.5 L, Hct 35.8 L, MCV 80.4, MCH 25.8 L, MCHC 32.1, Plt Count 146 L, MPV 9.4, Neut % (Auto) Not Reportable, Absolute Neuts (auto) 15.7 H, Total Counted 100, Neutrophils % (Manual) 84 H, Band Neutrophils % 5, Lymphocytes % (Manual) 3 L, Monocytes % (Manual) 6, Metamyelocytes % 1, Myelocytes % 1 H 02/08/22 05:10: Sodium 137, Potassium 4.3, Chloride 109 H, Carbon Dioxide 17.0 L , Anion Gap 11, BUN 33 H, Creatinine 2.14 H, Est GFR (MDRD) Af Amer 39 L, Est GFR (MDRD) Non-Af 32 L, BUN/Creatinine Ratio 15.4, Glucose 146 H, Calcium 8.1 L, Total Bilirubin 5.10 H Rhythm: As noted above EKG: As noted above ECHO: As noted below Stress Test: 01-13-2021 Stress Test Report Pharmacologic myocardial perfusion stress test. 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 Stress protocol: Resting EKG demonstrates normal sinus rhythm with a first-degree AV block and left bundle branch block pattern. Rate of 71 bpm. Resting blood pressure is 1 and 38/70 6 mmHg. 0.4 mg of regadenoson was infused per usual protocol followed by rapid intravenous saline flush injection continuous EKG monitoring was performed. At rest there were no ST or T wave changes noted to suggest abnormal flow reserve at peak infusion nonspecific ST-T wave changes were noted with no meet the criteria for ischemia. The final blood pressure was 126/70 mmHg. Myocardial perfusion protocol. 11.6 mCi of technetium 99m sestamibi was injected at rest. 0.4 mg of regadenoson was infused per usual protocol. At peak infusion 34.2 mCi of technetium 99m sestamibi was injected stress images were obtained stress and rest images were reconstructed and compared in the short axis vertical and horizontal long axis. Gated images were also obtained Perfusion SPECT analysis: Review of the stress images demonstrate normal perfusion in the anterior wall as well as the anterior septal wall and the anterior lateral wall. The entire inferior wall extending to the apex has a large perfusion defect. This is present on the stress images as well as the resting images. There is no improvement to suggest an area of ischemia the above is suggestive of an e xtensive previous inferior and inferior apical infarct extending to the inferior septal and inferolateral zones. Gated SPECT analysis: The gated ejection fraction is 13% with an akinetic inferior wall. Conclusion: Pharmacologic stress test with large previous inferior, inferoseptal, inferolateral and inferoapical infarct. No ischemia noted, Ischemic cardiomyopathy present. PCI: 03-08-2001: [facility] RCA PCI PPM: [email or web address]: Model: [id number]: Serial number: [id number]: Implant date: 09-21-2017 Radiography Diagnostic Testing: Radiology Impression Abscess Drainage CT 02/08/22 09:00 IMPRESSION: CT-guided percutaneous cholecystostomy tube placement as detailed. Electronically Signed: Gordy Stahl, at 12:43 EDT , Echocardiogram 02/08/22 09:50 Interpretation Summary The study was technically difficult. Contrast injection was performed. Mildly dilated left ventricle. Moderate segmental systolic dysfunction (see wall motion). The estimated ejection fraction is 35 %. The left atrium is mildly enlarged. There is mild mitral annular calcification. Extension the mitral annular calcification onto the posterior mitral valve leaflet. Mild-Moderate (1-2+) mitral valve insufficiency. Mild tricuspid valve insufficiency. Mild focal aortic valve calcification. Right ventricular systolic pressure estimated to be 45 mmHg. Unable to assess diastolic dysfunction. ICD or pacer leads identified within the right atrium ICD or pacer leads identified within the right ventricle. Ordering Physician: Tommie Guevara Referring Physician: CHENG RANGEL Performed By: Herscher, Ely, RDCS
[2022-02-08] MEDS: Gabapentin 300 MG Capsule 600 MG PO (21:08)
[2022-02-08] MEDS: Carvedilol 25 MG Tablet PO (21:09)
[2022-02-08] MEDS: Albuterol 2.5 MG/3 ML VIAL.NEB. INHALATION (21:28)
[2022-02-08 22:05] LABS: Bedside Glucose 235 mg/dL (74-106)
[2022-02-09] VITALS (58 sets, daily range): BP systolic 65–121; BP diastolic 39–76; PULSE 74–98; RESP 14–30; TEMP 37.5–38.8; O2SAT 93–100
--- NOTE | 2022-02-09 00:13 | NURSING ---
alarming asystole on telemetry. In to see pt. Pt found in bed. Did not respond to voice or touch. No carotid pulse. Code blue called and CPR started.
--- NOTE | 2022-02-09 00:35 | NURSING ---
This RN attempted to contact both patients and daughter to update on condition. Voicemail left on both phones to call.
--- NOTE | 2022-02-09 00:42 | EKG12_ITS ---
Test Reason : CARDIAC ARREST Blood Pressure : / mmHG Vent. Rate : 074 BPM Atrial Rate : 074 BPM P-R Int : 324 ms QRS Dur : 192 ms QT Int : 478 ms P-R-T Axes : -02 255 050 degrees QTc Int : 530 ms Sinus rhythm with sinus arrhythmia with 1st degree A-V block Non-specific intra-ventricular conduction block Inferior infarct , age undetermined Abnormal ECG No previous ECGs available Confirmed by HUMBLE MIGUEL, DOMINGO ([id number]), news videotape editor ISSA MICHELE ([id number]) on 02/10/2022 1:49:39 PM Referred By: Confirmed By:JERRY KATE MD
--- NOTE | 2022-02-09 01:15 | NURSING ---
Pt Kandi notified that pt was transferred to ICU bed 5
[2022-02-09 01:28] LABS: Absolute Lymphocyte Count 3.43 X10^3/uL (0.83-4.51); Absolute Neutrophil Count 10.4 X10^3/uL (2.0-7.7); Basophil# 0.05 X10^3/uL; Basophil% 0.3 % (0-1); Eosinophil# 0.04 X10^3/uL; Eosinophils% 0.3 % (0-5); Hematocrit 32.7 % (40-54); Lymphocyte # 3.43 X10^3/ul (0.83-4.51); Lymphocyte % 22.4 % (19-41); Mean Corp Hgb Conc 30.6 g/dL (32-36); Mean Corpuscular Hgb 25.4 pg (27.0-32.0); Mean Platelet Vol. 9.9 fl (6.2-12.0); Monocyte# 1.05 X10^3/uL; Monocyte% 6.9 % (0-10); NRBC Flagged by Analyzer 0.2 % (0-5); Neutrophil % 68.1 % (47-70); Platelet Count 161 K/mm3 (150-450); RBC Distribution Width CV 16.5 % (11.6-14.6); RBC Distribution Width SD 50.6 fl (35.1-43.9); Red Blood Count 3.94 M/mm3 (4.6-6.2); White Blood Count 15.3 K/mm3 (4.4-11.0)
--- NOTE | 2022-02-09 01:36 | RAD_ITS ---
STUDY: X-RAY CHEST REASON FOR EXAM: Male, 76 years old. Central Line Placement TECHNIQUE: Single AP portable view of the chest. COMPARISON: None. FINDINGS: Central venous line is seen on the right side its tip is at the mid superior vena cava. Endotracheal tube is seen its tip is 4 cm superior to the jai. The lungs are clear and expanded. There is no demonstrated pleural abnormality. Normal size heart. Normal mediastinum and bee. Normal visualized pulmonary arteries. Normal visualized aortic arch and descending thoracic aorta. Normal visualized thoracic spine. Normal visualized ribs, clavicles, and shoulders. There is no demonstrated abnormality of the visualized soft tissue structures of the upper abdomen. RAD/CXR for Line Placement IMPRESSION: Central venous line is seen on the right side its tip is at the mid superior vena cava. Electronically Signed: Sara Mckee MD at 3:13 EDT ,
[2022-02-09 01:43] LABS: Anion Gap 11 (5-15); BUN 39 mg/dL (7-18); BUN/Creat Ratio 14.8 RATIO (10-20); Calcium,Total 8.2 mg/dL (8.5-10.1); Chloride 107 mmol/L (98-107); Creatinine, Serum 2.64 mg/dL (0.70-1.30); EST Glomerular Filtration Rate 25 mL/min (>60); Est Glom Filt Rate - Afr Amer 31 mL/min (>60); Estimated Creatinine Clearance 24.55 ml/min; Glucose 242 mg/dL (74-106); Potassium 4.6 mmol/L (3.5-5.1); Sodium Level 135 mmol/L (136-145)
--- NOTE | 2022-02-09 01:57 | PCM.CODE.SUM ---
Code Blue Report Code Blue Summary Code Blue Summary: Patient was found asytole on cardiac monitoring. Nursing team checked on patient. Patient was not breathing and he did not have a pulse. ACLS with chest compressions and meds was initiated. Patient achieved ROSC and lost pulse at least 2 times and was resuscitated again .
--- NOTE | 2022-02-09 01:57 | SEPSISNOTE ---
Sepsis Note Physical Exam/Vitals Objective: Abscess Drainage CT 02/08/22 09:00 IMPRESSION: CT-guided percutaneous cholecystostomy tube placement as detailed. Electronically Signed: Gordy Stahl, at 12:43 EDT , Echocardiogram 02/08/22 09:50 Interpretation Summary The study was technically difficult. Contrast injection was performed. Mildly dilated left ventricle. Moderate segmental systolic dysfunction (see wall motion). The estimated ejection fraction is 35 %. The left atrium is mildly enlarged. There is mild mitral annular calcification. Extension the mitral annular calcification onto the posterior mitral valve leaflet. Mild-Moderate (1-2+) mitral valve insufficiency. Mild tricuspid valve insufficiency. Mild focal aortic valve calcification. Right ventricular systolic pressure estimated to be 45 mmHg. Unable to assess diastolic dysfunction. ICD or pacer leads identified within the right atrium ICD or pacer leads identified within the right ventricle. Ordering Physician: Tommie Guevara Referring Physician: CHENG RANGEL Performed By: Ely Quintero RDCS Temp Pulse Resp BP Pulse Ox 98.4 F 80 14 106/54 L 93 02/08/22 20:54 02/09/22 01:11 02/09/22 01:11 02/08/22 20:54 02/09/22 01:11 02/09/22 02/09/22 02/09/22 01:10 01:10 01:10 WBC RBC Hgb Hct MCV MCH MCHC RDW Std Deviation RDW Coeff of Pee Plt Count MPV Immature Gran % (Auto) Neut % (Auto) Lymph % (Auto) Bartholomew % (Auto) Eos % (Auto) Baso % (Auto) Absolute Neuts (auto) Absolute Lymphs (auto) Total Counted Neutrophils % (Manual) Band Neutrophils % Lymphocytes % (Manual) Monocytes % (Manual) Metamyelocytes % Myelocytes % Nucleated RBC % Diff Path Review Platelet Estimate RBC Morphology PT Pending INR Pending APTT Pending Sodium 135 L Potassium 4.6 Chloride 107 Carbon Dioxide 17.0 L Anion Gap 11 BUN 39 H Creatinine 2.64 H Estim Creat Clear Calc 24.55 Est GFR (MDRD) Af Amer 31 L Est GFR (MDRD) Non-Af 25 L BUN/Creatinine Ratio 14.8 Glucose 242 H Calcium 8.2 L Total Bilirubin AST ALT Alkaline Phosphatase Troponin I High Sens Pending Total Protein Albumin Globulin Albumin/Globulin Ratio POC Glucose 02/09/22 02/08/22 02/08/22 01:10 21:03 15:45 WBC 15.3 H RBC 3.94 L Hgb 10.0 L Hct 32.7 L MCV 83.0 MCH 25.4 L MCHC 30.6 L RDW Std Deviation 50.6 H RDW Coeff of Pee 16.5 H Plt Count 161 MPV 9.9 Immature Gran % (Auto) 2.000 H Neut % (Auto) 68.1 Lymph % (Auto) 22.4 Bartholomew % (Auto) 6.9 Eos % (Auto) 0.3 Baso % (Auto) 0.3 Absolute Neuts (auto) 10.4 H Absolute Lymphs (auto) 3.43 Total Counted Neutrophils % (Manual) Band Neutrophils % Lymphocytes % (Manual) Monocytes % (Manual) Metamyelocytes % Myelocytes % Nucleated RBC % 0.2 Diff Path Review Platelet Estimate RBC Morphology PT INR APTT Sodium Potassium Chloride Carbon Dioxide Anion Gap BUN Creatinine Estim Creat Clear Calc Est GFR (MDRD) Af Amer Est GFR (MDRD) Non-Af BUN/Creatinine Ratio Glucose Calcium Total Bilirubin AST ALT Alkaline Phosphatase Troponin I High Sens Total Protein Albumin Globulin Albumin/Globulin Ratio POC Glucose 235 H 148 H 02/08/22 02/08/22 02/08/22 12:42 05:10 05:10 WBC 17.6 H RBC 4.45 L Hgb 11.5 L Hct 35.8 L MCV 80.4 MCH 25.8 L MCHC 32.1 RDW Std Deviation 48.0 H RDW Coeff of Pee 16.5 H Plt Count 146 L MPV 9.4 Immature Gran % (Auto) Neut % (Auto) Not Reportable Lymph % (Auto) Bartholomew % (Auto) Eos % (Auto) Baso % (Auto) Absolute Neuts (auto) 15.7 H Absolute Lymphs (auto) 0.53 L Total Counted 100 Neutrophils % (Manual) 84 H Band Neutrophils % 5 Lymphocytes % (Manual) 3 L Monocytes % (Manual) 6 Metamyelocytes % 1 Myelocytes % 1 H Nucleated RBC % Diff Path Review May foll Platelet Estimate ADEQUATE RBC Morphology NORM C+C PT INR APTT Sodium 137 Potassium 4.3 Chloride 109 H Carbon Dioxide 17.0 L Anion Gap 11 BUN 33 H Creatinine 2.14 H Estim Creat Clear Calc 30.28 Est GFR (MDRD) Af Amer 39 L Est GFR (MDRD) Non-Af 32 L BUN/Creatinine Ratio 15.4 Glucose 146 H Calcium 8.1 L Total Bilirubin 5.10 H AST 103 H ALT 157 H Alkaline Phosphatase 324 H Troponin I High Sens Total Protein 6.9 Albumin 2.6 L Globulin 4.3 H Albumin/Globulin Ratio 0.6 L POC Glucose 167 H 02/07/22 23:40 WBC RBC Hgb Hct MCV MCH MCHC RDW Std Deviation RDW Coeff of Pee Plt Count MPV Immature Gran % (Auto) Neut % (Auto) Lymph % (Auto) Bartholomew % (Auto) Eos % (Auto) Baso % (Auto) Absolute Neuts (auto) Absolute Lymphs (auto) Total Counted Neutrophils % (Manual) Band Neutrophils % Lymphocytes % (Manual) Monocytes % (Manual) Metamyelocytes % Myelocytes % Nucleated RBC % Diff Path Review Platelet Estimate RBC Morphology PT INR APTT Sodium Potassium Chloride Carbon Dioxide Anion Gap BUN Creatinine Estim Creat Clear Calc Est GFR (MDRD) Af Amer Est GFR (MDRD) Non-Af BUN/Creatinine Ratio Glucose Calcium Total Bilirubin AST ALT Alkaline Phosphatase Troponin I High Sens Total Protein Albumin Globulin Albumin/Globulin Ratio POC Glucose 146 H Attestation Sepsis Attestation: Sepsis re-evaluation was performed
--- NOTE | 2022-02-09 01:57 | PCM.PN.BLA ---
Progress Note Subjective: See code blue notes. Physical examination Unresponsive. Tachypnea. Diminished heart sounds. Abdomen soft nontender nondistended. Assessment and plan Septic shock secondary to acute cholecystitis status post cholecystotomy tube. With recent change in status Zosyn was discontinued and Merrem started. Aspirate cultures are pending. Started on Levophed drip, vasopressin and hydrocortisone. Transferred to intensive care unit. Lactic acid 3.0, trend. White blood count remains elevated, trend. Intubated during code and placed mechanical ventilation thereafter. Fentanyl drip ordered. Fentanyl as needed for pain and sedation. With history of CHF (ejection fraction about 35%) and with receiving a previous bolus hold off further IV fluids at this time. Water flushes per G-tube. CAD With recent elevated troponin Heparin drip was started after patient was successfully resuscitated. Trend troponin.
--- NOTE | 2022-02-09 01:58 | PCM.PN.BLA ---
Progress Note Central Venous Catheter Indication: Septic Shock Consent was not obtained as patient was unresponsive; it was an emergency procedure and family could not be reached by phone A time-out was completed verifying correct patient, procedure, site, positioning, and special equipment if applicable. The patient was placed in a dependent position appropriate for central line placement based on the vein to be cannulated. The patient's right IJ was prepped and draped in a sterile fashion. No lidocaine was used to anesthetize the surrounding skin area as patient was unresponsive. A triple-lumen catheter was introduced into the R IJ using the Seldinger technique and under ultrasound guidance. The catheter was threaded smoothly over the guidewire and appropriate blood return was obtained. Each lumen of the catheter was evacuated of air and flushed with sterile saline. The catheter was then sutured in place to the skin and a sterile dressing applied. Chest x-ray to confirm appropriate positioning. ULTRASOUND GUIDANCE STATEMENT (Vascular Access): I performed ultrasound image acquisition and interpretation for needle placement during the procedure. The vessel was identified and found to be free of thrombosis by compression technique. A safe point of entry was marked at the skin in an angle for axis was determined. The needle was guided by obtaining free-flowing fluid and by real-time visualization.
[2022-02-09 02:31] LABS: Allen Test Positive; Base Excess -9 mmol/L (-2 to +2); Blood Gas Specimen Type ART; FI02 100; Mode AC; O2 Delivery Device ET Tube; PEEP 5; PO2 41 mmHG (75-100); RR 14; SITE R Radial; SO2 69 % (95-99); Total Carbon Dioxide 19 mmol/L; Vt 450; pCO2 40.7 mmHg (35-45); pH 7.25 (7.35-7.45)
[2022-02-09 02:45] LABS: International Normalized Ratio 1.7; Prothrombin Time (Protime)PT. 19.2 SECONDS (11.7-14.9)
--- NOTE | 2022-02-09 02:52 | NURSING ---
Dr. Liu at bedside placing line. Infrastructure Consultant Carmen and Charge nurse Lor at bedside. Central line placement in progress. NG attempt unsuccessful. Peraza placed. Pt cleaned up and ready for family. and daughter brought to bedside.
[2022-02-09 03:17] LABS: Troponin-I HS 418 pg/mL (3.0-78.0)
[2022-02-09 03:20] LABS: Reflex Lactate? Y
[2022-02-09] MEDS: Heparin Injection (Vial) 5,000 UNIT/ML VIAL 6000 UNIT IV (03:49)
[2022-02-09 04:28] LABS: Absolute Lymphocyte Count 0.66 X10^3/uL (0.83-4.51); Absolute Neutrophil Count 11.6 X10^3/uL (2.0-7.7); Basophil# 0.01 X10^3/uL; Basophil% 0.1 % (0-1); Hematocrit 31.5 % (40-54); Hemoglobin 10.1 g/dL (13.0-16.5); Lymphocyte # 0.66 X10^3/ul (0.83-4.51); Lymphocyte % 4.8 % (19-41); Mean Corp Hgb Conc 32.1 g/dL (32-36); Mean Corpuscular Hgb 25.5 pg (27.0-32.0); Mean Corpuscular Volume 79.5 fL (80-94); Mean Platelet Vol. 9.7 fl (6.2-12.0); Monocyte# 1.11 X10^3/uL; Monocyte% 8.1 % (0-10); NRBC Flagged by Analyzer 0 % (0-5); Neutrophil # 11.57 X10^3/uL (2.7-7.7); Platelet Count 166 K/mm3 (150-450); RBC Distribution Width CV 16.4 % (11.6-14.6); RBC Distribution Width SD 47.3 fl (35.1-43.9); Red Blood Count 3.96 M/mm3 (4.6-6.2); White Blood Count 13.6 K/mm3 (4.4-11.0)
[2022-02-09 04:55] LABS: ALB/GLOB Ratio 0.5 RATIO (0.9-2.4); AST(SGOT) 912 U/L (15-37); Alanine Aminotransfer ALT/SGPT 437 U/L (16-61); Albumin, Serum 2.2 g/dL (3.2-5.0); Alkaline Phosphatase 554 U/L (45-117); Anion Gap 10 (5-15); BUN 46 mg/dL (7-18); Calcium,Total 7.6 mg/dL (8.5-10.1); Chloride 106 mmol/L (98-107); Creatinine, Serum 2.88 mg/dL (0.70-1.30); EST Glomerular Filtration Rate 23 mL/min (>60); Est Glom Filt Rate - Afr Amer 28 mL/min (>60); Globulin 4.2 g/dL (2.2-4.2); Glucose 243 mg/dL (74-106); Potassium 4.7 mmol/L (3.5-5.1); Protein, Total 6.4 g/dL (6.4-8.2); Sodium Level 135 mmol/L (136-145)
--- NOTE | 2022-02-09 04:58 | NURSING ---
Pt's alarming asystole on telemetry. In to see pt. Pt found in bed. Did not respond to voice or touch. No carotid pulse. Ricki lynch called and CPR started.
[2022-02-09 05:00] LABS: Troponin-I HS 532 pg/mL (3.0-78.0)
--- NOTE | 2022-02-09 06:11 | PCM.RX.CS ---
Consult Pharmacy has been consulted to manage selected antiobiotic: Vancomycin Type of Consult: New start Suspected Infection: Sepsis Labs: Sodium 135 mmol/L (136-145) L 02/09/22 04:20 Potassium 4.7 mmol/L (3.5-5.1) 02/09/22 04:20 Chloride 106 mmol/L (98-107) 02/09/22 04:20 Carbon Dioxide 19.0 mmol/L (21.0-32.0) L 02/09/22 04:20 Anion Gap 10 (5-15) 02/09/22 04:20 BUN 46 mg/dL (7-18) H 02/09/22 04:20 Creatinine 2.88 mg/dL (0.70-1.30) H 02/09/22 04:20 Est GFR (MDRD) Af Amer 28 mL/min (>60) L 02/09/22 04:20 Est GFR (MDRD) Non-Af 23 mL/min (>60) L 02/09/22 04:20 BUN/Creatinine Ratio 16.0 RATIO (10-20) 02/09/22 04:20 Glucose 243 mg/dL (74-106) H 02/09/22 04:20 Microbiology: Microbiology 02/07/22 09:20 Nasal Secretion SARS-CoV-2 Antigen (Rapid) - Final Weight used for dosin.2 kg Estimated Creatinine Clearance: 22.5 Goal Trough: 15-20 mcg/mL Pharmacy Plan for Drug Dosing: Pharmacy Service will continue to monitor and adjust dosing as required. Medications Vancomycin HCl 1,250 mg/ (Sodium Chloride) 275 mls @ 167 mls/hr IV X1 ONE Stop: 02/09/22 06:38 Last Admin: 02/09/22 05:50 Dose: 167 mls/hr Documented by: Vancomycin HCl 750 mg/ Sodium (Chloride) 265 mls @ 250 mls/hr IV Q24H ARMIN Follow-Up Labs: Trough Vancomycin Labs to be done on [date and time ordered]: 02/11 @ 9182
[2022-02-09] MEDS: Hydrocortisone Sod Succinate 100 MG/2 ML Vial 50 MG IV ×3 (06:34→17:22)
[2022-02-09] MEDS: Insulin Lispro 100 UNIT/ML INSULN.PEN SC ×3 (06:35→17:20)
[2022-02-09 06:46] LABS: Bedside Glucose 235 mg/dL (74-106)
--- NOTE | 2022-02-09 08:41 | PCM.PN.INT ---
Assessment & Plan Assessment/Plan (1) Choledocholithiasis with acute cholecystitis with obstruction: (2) Pancreatitis: QUALIFIERS: Chronicity: acute Pancreatitis type: biliary Acute pancreatitis complication: no infection or necrosis Qualified Code(s): K85.10 - Biliary acute pancreatitis without necrosis or infection (3) Ischemic cardiomyopathy: (4) Sepsis: QUALIFIERS: Sepsis type: sepsis due to unspecified organism Sepsis acute organ dysfunction status: without acute organ dysfunction Qualified Code(s): A41.9 - Sepsis, unspecified organism PLAN: RECOMMENDATIONS: 1. Wean pressors as tolerated 2. Consider interrogation of pacemaker for etiology of arrest 3. Continue to monitor off sedation 4. Continue empiric antibiotics. Follow-up cultures 5. Wean oxygen as tolerated. Spontaneous breathing and awakening trials per protocol 6. Discontinue diabetic medications. Initiate sliding scale with possible basal insulin 7. Reassess for cranial nerve reflexes IMPRESSIONS: 1. Sepsis Clinical suspicion for gallbladder as potential etiology. Patient also has findings consistent with gallstone pancreatitis without pseudocyst formation on CT scan. Patient remains on pressors at this time. Danay tube is in place and appears to be functioning appropriately. Unclear how much of patient's hypotension is related to sepsis and how much due to his arrest. Continue to wean pressors as tolerated. Patient does not appear to have aspirated during the acute event on follow-up chest x-ray. 2. Acute pancreatitis/cholecystitis secondary to potential gallstone GI and surgery have been consulted. There appears to be some limitation to the ability to be treated with ERCP and surgery. Medical management has been recommended. Danay tube is in place and appears to be functioning appropriately. Did discuss with surgery. We will continue supportive management. Keep n.p.o. Could continue fentanyl for pain control but avoid sedation given problem #6 from my perspective 3. Chronic systolic CHF Patient's last known ejection fraction was 37% in August 2021. Patient has received significant fluid resuscitation, but still appears to be compensated at this time. We will need to watch patient closely. Patient with minimal nasal cannula oxygen requirements. Patient will require pressors if becomes hypotensive. Continue to hold antihypertensives given patient's sepsis. 4. Chronic kidney disease stage IIIb Slightly worse. Creatinine is slightly up from his baseline. Patient's blood pressure does appear to be slightly improved with fluid resuscitation. We will continue with conservative measures. Patient with no indication for renal replacement therapy at this time. 5. Diabetes mellitus type 2/history of smoking/advanced age Complicates care, management, recovery and prognosis. DC baseline diabetic meds and cover with sliding scale insulin and potential basal insulin. Patient was confirmed a full CODE STATUS by hospitalist. 6. 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 Could attempt to interrogate patient's pacemaker. Troponins are elevated, but not to the point that would be suggestive of an acute CO and more global ischemia given protracted CPR requirements. Patient does have some myoclonus at this time. Patient is currently breathing over the ventilator, so brain protocol would not be appropriate. Life bank will be notified. Discussion with the family is they would like to wait 24 to 48 hours to see if there is improvement. If patient does have progression to neurologic devastation, anticipate hospice measures in the next 24 to 48 hours. Patient will remain a full code in the interim. Intubation appears to be more for airway protection with acute respiratory failure secondary to an inability to protect his airway. Anticipate patient will be on minimal vent settings by the end of the day. There are no signs of aspiration noted on x-ray TIME: 45 minutes critical care time spent addressing patient's anoxic encephalopathy, status post arrest, respiratory failure, sepsis, cholecystitis, review of all data and collaboration with care team Subjective Subjective Patient tolerated Danay tube placement well and was watched in the intensive care unit for 2 hours yesterday prior to going to the floor. Patient reportedly was doing well at 9:30 PM, but a CODE BLUE was called around midnight. Patient ultimately had 3 episodes of CPR with a total downtime of 40 to 50 minutes. Patient subsequently has been intubated, had central line placed and initiated on pressors. Patient was febrile overnight, but oxygenation has continued to improve. Patient's family members are at the bedside. Extensive conversation about CODE STATUS and current prognosis. They stated they want to continue with full CODE STATUS release 24 to 48 hours to see if there is neurologic injury that will persist. Objective Data Objective Data Vital Signs: Vital Signs Temp Pulse Resp BP Pulse Ox 38.0 C H 85 29 H 115/73 96 02/09/22 08:00 02/09/22 08:15 02/09/22 08:00 02/09/22 08:15 02/09/22 07:11 Oxygen Flow Rate (L/min) [17] 2 Oxygen Flow Rate (L/min) [16] 2 Oxygen Flow Rate (L/min) [15] 2 Oxygen Flow Rate (L/min) [14] 2 Oxygen Flow Rate (L/min) [13] 2 Oxygen Flow Rate (L/min) [12] 2 Oxygen Flow Rate (L/min) [11] 2 Oxygen Flow Rate (L/min) [10] 2 Oxygen Flow Rate (L/min) [9] 2 Oxygen Flow Rate (L/min) [8] 2 Oxygen Flow Rate (L/min) [7] 2 Oxygen Flow Rate (L/min) [6] 2 Oxygen Flow Rate (L/min) [5] 2 Oxygen Flow Rate (L/min) [4] 2 Oxygen Flow Rate (L/min) [3] 2 Oxygen Flow Rate (L/min) [2] 2 Oxygen Flow Rate (L/min) [1 ( 2 Initial Baseline)] Oxygen Flow Rate (L/min) 3 Oxygen Delivery Method [17] Nasal Cannula Oxygen Delivery Method [16] Nasal Cannula Oxygen Delivery Method [15] Nasal Cannula Oxygen Delivery Method [14] Nasal Cannula Oxygen Delivery Method [13] Nasal Cannula Oxygen Delivery Method [12] Nasal Cannula Oxygen Delivery Method [11] Nasal Cannula Oxygen Delivery Method [10] Nasal Cannula Oxygen Delivery Method [9] Nasal Cannula Oxygen Delivery Method [8] Nasal Cannula Oxygen Delivery Method [7] Nasal Cannula Oxygen Delivery Method [6] Nasal Cannula Oxygen Delivery Method [5] Nasal Cannula Oxygen Delivery Method [4] Nasal Cannula Oxygen Delivery Method [3] Nasal Cannula Oxygen Delivery Method [2] Nasal Cannula Oxygen Delivery Method [1 ( Nasal Cannula Initial Baseline)] Oxygen Delivery Method Mechanical Ventilator Weight: 83.189 kg Body Mass Index (BMI) 27.1 Intake & Output: Intake and Output for Last 24 Hours 02/07/22 02/08/22 02/09/22 23:59 23:59 23:59 Intake Total 3767.5 / 3767.5 692.25 / 992.25 1179.99 / 1179.99 Output Total 1325 / 1325 1220 / 1290 150 / 150 Balance 2442.5 / 2442.5 -527.75 / -297.75 1029.99 / 1029.99 Lab / Micro Data Result Diagrams: 02/09/22 04:20 02/09/22 04:20 Labs: Laboratory Results - last 24 hr 02/08/22 12:42: POC Glucose 167 H 02/08/22 15:45: POC Glucose 148 H 02/08/22 21:03: POC Glucose 235 H 02/09/22 01:10: WBC 15.3 H, RBC 3.94 L, Hgb 10.0 L, Hct 32.7 L, MCV 83.0, MCH 25.4 L, MCHC 30.6 L, RDW Std Deviation 50.6 H, RDW Coeff of Pee 16.5 H, Plt Count 161, MPV 9.9, Immature Gran % (Auto) 2.000 H, Neut % (Auto) 68.1, Lymph % (Auto) 22.4, [place] % (Auto) 6.9, Eos % (Auto) 0.3, Baso % (Auto) 0.3, Absolute Neuts (auto) 10.4 H, Absolute Lymphs (auto) 3.43, Nucleated RBC % 0.2 02/09/22 01:10: Sodium 135 L, Potassium 4.6, Chloride 107, Carbon Dioxide 17.0 L, Anion Gap 11, BUN 39 H, Creatinine 2.64 H, Estim Creat Clear Calc 24.55, Est GFR (MDRD) Af Amer 31 L, Est GFR (MDRD) Non-Af 25 L, BUN/Creatinine Ratio 14.8, Glucose 242 H, Calcium 8.2 L 02/09/22 01:10: Troponin I High Sens 418 H* 02/09/22 02:25: Lactic Acid 3.0 H* 02/09/22 02:25: PT 19.2 H, INR 1.7, APTT 32.0 02/09/22 04:20: WBC 13.6 H, RBC 3.96 L, Hgb 10.1 L, Hct 31.5 L, MCV 79.5 L, MCH 25.5 L, MCHC 32.1, RDW Std Deviation 47.3 H, RDW Coeff of Pee 16.4 H, Plt Count 166, MPV 9.7, Immature Gran % (Auto) 2.000 H, Neut % (Auto) 85.0 H, Lymph % (Auto) 4.8 L, [place] % (Auto) 8.1, Eos % (Auto) 0.0, Baso % (Auto) 0.1, Absolute Neuts (auto) 11.6 H, Absolute Lymphs (auto) 0.66 L, Nucleated RBC % 0 02/09/22 04:20: Sodium 135 L, Potassium 4.7, Chloride 106, Carbon Dioxide 19.0 L, Anion Gap 10, BUN 46 H, Creatinine 2.88 H, Estim Creat Clear Calc 22.50, Est GFR (MDRD) Af Amer 28 L, Est GFR (MDRD) Non-Af 23 L, BUN/Creatinine Ratio 16.0, Glucose 243 H, Calcium 7.6 L, Total Bilirubin 4.20 H, AST 912 H, ALT 437 H, Alkaline Phosphatase 554 H, Total Protein 6.4, Albumin 2.2 L, Globulin 4.2, Albumin/Globulin Ratio 0.5 L 02/09/22 04:20: Troponin I High Sens 532 H* 02/09/22 06:39: POC Glucose 235 H 02/09/22 : PT Cancelled, INR Cancelled, APTT Cancelled Micro: Microbiology 02/07/22 09:20 Nasal Secretion SARS-CoV-2 Antigen (Rapid) - Final ABG Data ABG results: ABG 02/09/22 02:22 Specimen Type ART Sample Site R Radial pH 7.25 L Bicarbonate Actual 18.0 L Total CO2 19 Base Excess -9 L O2 Saturation 69 L O2 % 100 ABG pCO2 40.7 ABG pO2 41 L Mainor Test Positive Respiration Rate 14 O2 Delivery Device ET Tube Vent Mode AC Tidal Volume 450 POC PEEP 5 Radiography Diagnostic Testing: Radiology Impression Abscess Drainage CT 02/08/22 09:00 IMPRESSION: CT-guided percutaneous cholecystostomy tube placement as detailed. Electronically Signed: Gordy Stahl, at 12:43 EDT , Echocardiogram 02/08/22 09:50 Interpretation Summary The study was technically difficult. Contrast injection was performed. Mildly dilated left ventricle. Moderate segmental systolic dysfunction (see wall motion). The estimated ejection fraction is 35 %. The left atrium is mildly enlarged. There is mild mitral annular calcification. Extension the mitral annular calcification onto the posterior mitral valve leaflet. Mild-Moderate (1-2+) mitral valve insufficiency. Mild tricuspid valve insufficiency. Mild focal aortic valve calcification. Right ventricular systolic pressure estimated to be 45 mmHg. Unable to assess diastolic dysfunction. ICD or pacer leads identified within the right atrium ICD or pacer leads identified within the right ventricle. Ordering Physician: Tommie Guevara Referring Physician: CHENG RANGEL Performed By: Ely Quintero RDCS Chest X-Ray 02/09/22 01:36 IMPRESSION: Central venous line is seen on the right side its tip is at the mid superior vena cava. Electronically Signed: Sara Mckee MD at 3:13 EDT , Physical Exam Const Constitutional Narrative: Hard of hearing General Appearance: intubated and patient mechanically ventilated Orientation / Consciousness: comatose HEENT normocephalic, head/scalp atraumatic, hearing grossly normal bilaterally and moist oral mucous membranes HEENT Narrative: No cough or gag reflex noted. Right IJ noted. Eyes conjunctivae normal and no scleral icterus; Negative for PERRL or EOMs intact bilaterally Neck no lymphadenopathy, no JVD and thyroid normal Neck Narrative: No bruising noted at left IJ attempt General: trachea midline Chest Chest Narrative: Left chest defibrillator Resp normal respiratory effort, no retractions, no use of accessory muscles and clear to auscultation bilaterally Resp Narrative: Patient with spontaneous respiration over the ventilator Cardio regular rate, regular rhythm, S1 normal heart sound and S2 normal heart sound GI GI Narrative: Danay tube with dark green to brown fluid Inspection: Negative for abdominal wall ecchymosis or fluid wave present Auscultation: hypoactive bowel sounds Palpation: soft; Negative for ascites Extremity Extremity Narrative: Healing right shoulder wound noted. No fluctuance or surrounding erythema Skin no rashes or lesions noted Neuro Neuro Narrative: Periodic myoclonic jerking noted [place] Coma Scale: document GCS findings None Abnormal Flexion None 5 Sensorium / Orientation: alert Psych affect normal Charges/Coding Procedures [facility]ists [facility]: [id number]
[2022-02-09 09:05] LABS: Troponin-I HS 494 pg/mL (3.0-78.0)
--- NOTE | 2022-02-09 09:40 | RAD_ITS ---
STUDY: X-RAY - ABDOMEN/PELVIS REASON FOR EXAM: Male, 76 years old. Orogastric tube placement verification. TECHNIQUE: A single frontal lower chest and upper abdominal image was obtained. COMPARISON: Chest x-ray same day. FINDINGS: NG tube tip projected over the duodenal bulb. Mild gaseous distention of small bowel. There is no demonstrated free abdominal air. The visualized liver, spleen and kidneys are grossly normal in size and morphology. Normal soft tissue structures. Normal visualized osseous structures. RAD/Abdomen Single View IMPRESSION: Tip of orogastric tube projected over the region of the duodenal bulb. No complications. Electronically Signed: Curry Parra MD at 10:05 EDT ,
--- NOTE | 2022-02-09 10:10 | PCM.PN.HOSP ---
Subjective Subjective Code Blue overnight. Intubated. Unresponsive. Myoclonus noted. Objective Data Objective Data Vital Signs: Vital Signs Temp Pulse Resp BP Pulse Ox 38.1 C H 84 28 H 116/72 95 02/09/22 09:00 02/09/22 09:30 02/09/22 09:00 02/09/22 09:30 02/09/22 09:00 Oxygen Flow Rate (L/min) [17] 2 Oxygen Flow Rate (L/min) [16] 2 Oxygen Flow Rate (L/min) [15] 2 Oxygen Flow Rate (L/min) [14] 2 Oxygen Flow Rate (L/min) [13] 2 Oxygen Flow Rate (L/min) [12] 2 Oxygen Flow Rate (L/min) [11] 2 Oxygen Flow Rate (L/min) [10] 2 Oxygen Flow Rate (L/min) [9] 2 Oxygen Flow Rate (L/min) [8] 2 Oxygen Flow Rate (L/min) [7] 2 Oxygen Flow Rate (L/min) [6] 2 Oxygen Flow Rate (L/min) [5] 2 Oxygen Flow Rate (L/min) [4] 2 Oxygen Flow Rate (L/min) [3] 2 Oxygen Flow Rate (L/min) [2] 2 Oxygen Flow Rate (L/min) [1 ( 2 Initial Baseline)] Oxygen Flow Rate (L/min) 3 Oxygen Delivery Method [17] Nasal Cannula Oxygen Delivery Method [16] Nasal Cannula Oxygen Delivery Method [15] Nasal Cannula Oxygen Delivery Method [14] Nasal Cannula Oxygen Delivery Method [13] Nasal Cannula Oxygen Delivery Method [12] Nasal Cannula Oxygen Delivery Method [11] Nasal Cannula Oxygen Delivery Method [10] Nasal Cannula Oxygen Delivery Method [9] Nasal Cannula Oxygen Delivery Method [8] Nasal Cannula Oxygen Delivery Method [7] Nasal Cannula Oxygen Delivery Method [6] Nasal Cannula Oxygen Delivery Method [5] Nasal Cannula Oxygen Delivery Method [4] Nasal Cannula Oxygen Delivery Method [3] Nasal Cannula Oxygen Delivery Method [2] Nasal Cannula Oxygen Delivery Method [1 ( Nasal Cannula Initial Baseline)] Oxygen Delivery Method Mechanical Ventilator Weight: 83.189 kg Body Mass Index (BMI) 27.1 Intake & Output: Intake and Output for Last 24 Hours 02/07/22 02/08/22 02/09/22 23:59 23:59 23:59 Intake Total 3767.5 / 3767.5 692.25 / 992.25 1226.73 / 1226.73 Output Total 1325 / 1325 1220 / 1290 150 / 150 Balance 2442.5 / 2442.5 -527.75 / -297.75 1076.73 / 1076.73 Lab / Micro Data Result Diagrams: 02/09/22 04:20 02/09/22 04:20 Labs: Laboratory Results - last 24 hr 02/08/22 12:42: POC Glucose 167 H 02/08/22 15:45: POC Glucose 148 H 02/08/22 21:03: POC Glucose 235 H 02/09/22 01:10: WBC 15.3 H, RBC 3.94 L, Hgb 10.0 L, Hct 32.7 L, MCV 83.0, MCH 25.4 L, MCHC 30.6 L, RDW Std Deviation 50.6 H, RDW Coeff of Pee 16.5 H, Plt Count 161, MPV 9.9, Immature Gran % (Auto) 2.000 H, Neut % (Auto) 68.1, Lymph % (Auto) 22.4, [place] % (Auto) 6.9, Eos % (Auto) 0.3, Baso % (Auto) 0.3, Absolute Neuts (auto) 10.4 H, Absolute Lymphs (auto) 3.43, Nucleated RBC % 0.2 02/09/22 01:10: Sodium 135 L, Potassium 4.6, Chloride 107, Carbon Dioxide 17.0 L, Anion Gap 11, BUN 39 H, Creatinine 2.64 H, Estim Creat Clear Calc 24.55, Est GFR (MDRD) Af Amer 31 L, Est GFR (MDRD) Non-Af 25 L, BUN/Creatinine Ratio 14.8, Glucose 242 H, Calcium 8.2 L 02/09/22 01:10: Troponin I High Sens 418 H* 02/09/22 02:25: Lactic Acid 3.0 H* 02/09/22 02:25: PT 19.2 H, INR 1.7, APTT 32.0 02/09/22 04:20: WBC 13.6 H, RBC 3.96 L, Hgb 10.1 L, Hct 31.5 L, MCV 79.5 L, MCH 25.5 L, MCHC 32.1, RDW Std Deviation 47.3 H, RDW Coeff of Pee 16.4 H, Plt Count 166, MPV 9.7, Immature Gran % (Auto) 2.000 H, Neut % (Auto) 85.0 H, Lymph % (Auto) 4.8 L, [place] % (Auto) 8.1, Eos % (Auto) 0.0, Baso % (Auto) 0.1, Absolute Neuts (auto) 11.6 H, Absolute Lymphs (auto) 0.66 L, Nucleated RBC % 0 02/09/22 04:20: Sodium 135 L, Potassium 4.7, Chloride 106, Carbon Dioxide 19.0 L, Anion Gap 10, BUN 46 H, Creatinine 2.88 H, Estim Creat Clear Calc 22.50, Est GFR (MDRD) Af Amer 28 L, Est GFR (MDRD) Non-Af 23 L, BUN/Creatinine Ratio 16.0, Glucose 243 H, Calcium 7.6 L, Total Bilirubin 4.20 H, AST 912 H, ALT 437 H, Alkaline Phosphatase 554 H, Total Protein 6.4, Albumin 2.2 L, Globulin 4.2, Albumin/Globulin Ratio 0.5 L 02/09/22 04:20: Troponin I High Sens 532 H* 02/09/22 06:39: POC Glucose 235 H 02/09/22 08:25: Troponin I High Sens 494 H* 02/09/22 : PT Cancelled, INR Cancelled, APTT Cancelled Micro: Microbiology 02/07/22 09:20 Nasal Secretion SARS-CoV-2 Antigen (Rapid) - Final ABG Data ABG results: ABG 02/09/22 02:22 Specimen Type ART Sample Site R Radial pH 7.25 L Bicarbonate Actual 18.0 L Total CO2 19 Base Excess -9 L O2 Saturation 69 L O2 % 100 ABG pCO2 40.7 ABG pO2 41 L Mainor Test Positive Respiration Rate 14 O2 Delivery Device ET Tube Vent Mode AC Tidal Volume 450 POC PEEP 5 Radiography Diagnostic Testing: Radiology Impression Abscess Drainage CT 02/08/22 09:00 IMPRESSION: CT-guided percutaneous cholecystostomy tube placement as detailed. Electronically Signed: Gordy Stahl, at 12:43 EDT , Echocardiogram 02/08/22 09:50 Interpretation Summary The study was technically difficult. Contrast injection was performed. Mildly dilated left ventricle. Moderate segmental systolic dysfunction (see wall motion). The estimated ejection fraction is 35 %. The left atrium is mildly enlarged. There is mild mitral annular calcification. Extension the mitral annular calcification onto the posterior mitral valve leaflet. Mild-Moderate (1-2+) mitral valve insufficiency. Mild tricuspid valve insufficiency. Mild focal aortic valve calcification. Right ventricular systolic pressure estimated to be 45 mmHg. Unable to assess diastolic dysfunction. ICD or pacer leads identified within the right atrium ICD or pacer leads identified within the right ventricle. Ordering Physician: Tommie uGevara Referring Physician: CHENG RANGEL Performed By: Ely Quintero, [facility] Chest X-Ray 02/09/22 01:36 IMPRESSION: Central venous line is seen on the right side its tip is at the mid superior vena cava. Electronically Signed: Sara Mckee MD at 3:13 EDT , KUB X-Ray 02/09/22 09:40 IMPRESSION: Tip of orogastric tube projected over the region of the duodenal bulb. No complications. Electronically Signed: Curry Parra MD at 10:05 EDT , Physical Exam Const Constitutional Narrative: intubated. unresponsive. full body intermittent myoclonus where his eyes open. Resp normal respiratory effort, no retractions, no use of accessory muscles and clear to auscultation bilaterally Cardio regular rate, regular rhythm, S1 normal heart sound and S2 normal heart sound GI normal to inspection, nondistended, normoactive bowel sounds, soft to palpation, non-tender and non-distended Extremity normal to inspection and full ROM Neuro Sensorium / Orientation: awake Assessment & Plan Assessment/Plan (1) Choledocholithiasis with acute cholecystitis with obstruction: (2) Sepsis: QUALIFIERS: Sepsis type: sepsis due to unspecified organism Sepsis acute organ dysfunction status: without acute organ dysfunction Qualified Code(s): A41.9 - Sepsis, unspecified organism (3) Pancreatitis: QUALIFIERS: Chronicity: acute Pancreatitis type: biliary Acute pancreatitis complication: no infection or necrosis Qualified Code(s): K85.10 - Biliary acute pancreatitis without necrosis or infection (4) Transaminitis: (5) Cardiopulmonary arrest: (6) Acute respiratory failure with hypoxia: (7) Encephalopathy: PLAN: 1. Cardiopulmonary arrest noted asystole on notes DW Dr. Parrish and defibrillator interrogated. 2. acute hypoxic respiratory failure 2/2 cardiopulmonary arrest down to 35% FiO2 3. Encephalopathy 2/2 above concern for anoxic encephalopathy DW Dr. Love, hold off on head CT for now. 4. Myoclonus concern for anoxic encephalopathy if more frequent, may need to consider AEDs 5. Sepsis Secondary to cholecystitis Now on meropenem and vancomycin Follow up cultures on vasopressors. 6. Shock septic v cardiogenic on vasopressors 7. Acute cholecystitis With choledocholithiasis S/P cholecystostomy tube on 02/08 8. Pancreatitis Secondary to above Supportive management No evidence of necrosis 9. Transaminitis Secondary to above Monitor 10. Chronic heart failure with reduced ejection fraction Compensated this time EF from September 15, 2021 was at 37% Monitor closely with the large quantities of fluid patient is receiving 4 decompensation 11. 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 Diabetes mellitus type 2 SSI 9. VTE prophylaxis with SCDs 10. COVID-19 vaccination status: Patient is vaccinated and boosted 11. CODE STATUS: Addressed with the patient. Patient is full CODE STATUS. 12. Elevated troponins likely demand on heparin gtt DW pt's and dtr. Plan is monitor for another 24h then determine further course of action. Charges/Coding Visit Charges Inpatient E&M: 82745 Subs Hosp L3
[2022-02-09] MEDS: Chlorhexidine 15 ML PO ×2 (10:14→22:59)
[2022-02-09 10:15] LABS: Pathologist Review Reviewed
[2022-02-09] MEDS: Acetaminophen 650 MG/20 ML UDC NG (10:44)
[2022-02-09 11:17] LABS: Partial Thromboplast Time 111.7 Seconds (24.1-36.2)
[2022-02-09 11:17] LABS: Lactic Acid 1.7 mmol/L (0.4-1.9)
--- NOTE | 2022-02-09 11:22 | NURSING ---
Ptt was 111.7. Heparin gtt stopped. Protocol to hold for 2 hours and decrease rate by 300u.
[2022-02-09 12:36] LABS: Bedside Glucose 258 mg/dL (74-106)
--- NOTE | 2022-02-09 13:59 | PN.SURG_ITS ---
Subjective Subjective Reportedly the patient responded well to the cholecystostomy tube with pain being relieved and actually tolerating some p.o. However last night he coded and is subsequently now on a ventilator. Objective Data Objective Data Cholecystostomy tube is intact. Vital Signs: Vital Signs Temp Pulse Resp BP Pulse Ox 101.8 F H 80 27 H 94/60 95 02/09/22 13:00 02/09/22 13:41 02/09/22 13:41 02/09/22 13:00 02/09/22 13:41 Oxygen Flow Rate (L/min) [17] 2 Oxygen Flow Rate (L/min) [16] 2 Oxygen Flow Rate (L/min) [15] 2 Oxygen Flow Rate (L/min) [14] 2 Oxygen Flow Rate (L/min) [13] 2 Oxygen Flow Rate (L/min) [12] 2 Oxygen Flow Rate (L/min) [11] 2 Oxygen Flow Rate (L/min) [10] 2 Oxygen Flow Rate (L/min) [9] 2 Oxygen Flow Rate (L/min) [8] 2 Oxygen Flow Rate (L/min) [7] 2 Oxygen Flow Rate (L/min) [6] 2 Oxygen Flow Rate (L/min) [5] 2 Oxygen Flow Rate (L/min) [4] 2 Oxygen Flow Rate (L/min) [3] 2 Oxygen Flow Rate (L/min) [2] 2 Oxygen Flow Rate (L/min) [1 ( 2 Initial Baseline)] Oxygen Flow Rate (L/min) 3 Oxygen Delivery Method [17] Nasal Cannula Oxygen Delivery Method [16] Nasal Cannula Oxygen Delivery Method [15] Nasal Cannula Oxygen Delivery Method [14] Nasal Cannula Oxygen Delivery Method [13] Nasal Cannula Oxygen Delivery Method [12] Nasal Cannula Oxygen Delivery Method [11] Nasal Cannula Oxygen Delivery Method [10] Nasal Cannula Oxygen Delivery Method [9] Nasal Cannula Oxygen Delivery Method [8] Nasal Cannula Oxygen Delivery Method [7] Nasal Cannula Oxygen Delivery Method [6] Nasal Cannula Oxygen Delivery Method [5] Nasal Cannula Oxygen Delivery Method [4] Nasal Cannula Oxygen Delivery Method [3] Nasal Cannula Oxygen Delivery Method [2] Nasal Cannula Oxygen Delivery Method [1 ( Nasal Cannula Initial Baseline)] Oxygen Delivery Method Mechanical Ventilator Weight: 190 lb 7.67 oz Body Mass Index (BMI) 27.1 Intake & Output: Intake and Output for Last 24 Hours 02/07/22 02/08/22 02/09/22 23:59 23:59 23:59 Intake Total 3767.5 / 3767.5 692.25 / 992.25 1408.38 / 1408.38 Output Total 1325 / 1325 1220 / 1290 380 / 380 Balance 2442.5 / 2442.5 -527.75 / -297.75 1028.38 / 1028.38 Lab / Micro Data Result Diagrams: 02/09/22 04:20 02/09/22 04:20 Labs: Laboratory Results - last 24 hr 02/08/22 05:10: Diff Path Review Reviewed 02/08/22 15:45: POC Glucose 148 H 02/08/22 21:03: POC Glucose 235 H 02/09/22 01:10: WBC 15.3 H, RBC 3.94 L, Hgb 10.0 L, Hct 32.7 L, MCV 83.0, MCH 25.4 L, MCHC 30.6 L, RDW Std Deviation 50.6 H, RDW Coeff of Pee 16.5 H, Plt Count 161, MPV 9.9, Immature Gran % (Auto) 2.000 H, Neut % (Auto) 68.1, Lymph % (Auto) 22.4, [place] % (Auto) 6.9, Eos % (Auto) 0.3, Baso % (Auto) 0.3, Absolute Neuts (auto) 10.4 H, Absolute Lymphs (auto) 3.43, Nucleated RBC % 0.2 02/09/22 01:10: Sodium 135 L, Potassium 4.6, Chloride 107, Carbon Dioxide 17.0 L , Anion Gap 11, BUN 39 H, Creatinine 2.64 H, Estim Creat Clear Calc 24.55, Est GFR (MDRD) Af Amer 31 L, Est GFR (MDRD) Non-Af 25 L, BUN/Creatinine Ratio 14.8, Glucose 242 H, Calcium 8.2 L 02/09/22 01:10: Troponin I High Sens 418 H* 02/09/22 02:25: Lactic Acid 3.0 H* 02/09/22 02:25: PT 19.2 H, INR 1.7, APTT 32.0 02/09/22 04:20: WBC 13.6 H, RBC 3.96 L, Hgb 10.1 L, Hct 31.5 L, MCV 79.5 L, MCH 25.5 L, MCHC 32.1, RDW Std Deviation 47.3 H, RDW Coeff of Pee 16.4 H, Plt Count 166, MPV 9.7, Immature Gran % (Auto) 2.000 H, Neut % (Auto) 85.0 H, Lymph % (Auto) 4.8 L, [place] % (Auto) 8.1, Eos % (Auto) 0.0, Baso % (Auto) 0.1, Absolute Neuts (auto) 11.6 H, Absolute Lymphs (auto) 0.66 L, Nucleated RBC % 0 02/09/22 04:20: Sodium 135 L, Potassium 4.7, Chloride 106, Carbon Dioxide 19.0 L , Anion Gap 10, BUN 46 H, Creatinine 2.88 H, Estim Creat Clear Calc 22.50, Est GFR (MDRD) Af Amer 28 L, Est GFR (MDRD) Non-Af 23 L, BUN/Creatinine Ratio 16.0, Glucose 243 H, Calcium 7.6 L, Total Bilirubin 4.20 H, AST 912 H, ALT 437 H, Alkaline Phosphatase 554 H, Total Protein 6.4, Albumin 2.2 L, Globulin 4.2, Albumin/Globulin Ratio 0.5 L 02/09/22 04:20: Troponin I High Sens 532 H* 02/09/22 06:39: POC Glucose 235 H 02/09/22 08:25: Troponin I High Sens 494 H* 02/09/22 10:30: Lactic Acid 1.7 02/09/22 10:40: APTT 111.7 H* 02/09/22 12:20: POC Glucose 258 H 02/09/22 : PT Cancelled, INR Cancelled, APTT Cancelled Micro: Microbiology 02/08/22 11:00 Aspirate - Other Gram Stain - Final 02/09/22 02:10 Sputum, Induced/[place] Gram Stain - Final 02/07/22 09:55 Blood Culture (Wb) - Right Hand Blood Culture - Preliminary No growth in 48 hours. 02/07/22 10:05 Blood Culture (Wb) - Anticubital Right Blood Culture - Preliminary No growth in 48 hours. 02/07/22 09:20 Nasal Secretion SARS-CoV-2 Antigen (Rapid) - Final ABG Data ABG results: ABG 02/09/22 02:22 Specimen Type ART Sample Site R Radial pH 7.25 L Bicarbonate Actual 18.0 L Total CO2 19 Base Excess -9 L O2 Saturation 69 L O2 % 100 ABG pCO2 40.7 ABG pO2 41 L Mainor Test Positive Respiration Rate 14 O2 Delivery Device ET Tube Vent Mode AC Tidal Volume 450 POC PEEP 5 Radiography Diagnostic Testing: Radiology Impression Echocardiogram 02/08/22 09:50 Interpretation Summary The study was technically difficult. Contrast injection was performed. Mildly dilated left ventricle. Moderate segmental systolic dysfunction (see wall motion). The estimated ejection fraction is 35 %. The left atrium is mildly enlarged. There is mild mitral annular calcification. Extension the mitral annular calcification onto the posterior mitral valve leaflet. Mild-Moderate (1-2+) mitral valve insufficiency. Mild tricuspid valve insufficiency. Mild focal aortic valve calcification. Right ventricular systolic pressure estimated to be 45 mmHg. Unable to assess diastolic dysfunction. ICD or pacer leads identified within the right atrium ICD or pacer leads identified within the right ventricle. __ Ordering Physician: Tommie Guevara Referring Physician: CHENG RANGEL Performed By: Ely Quintero [facility] Chest X-Ray 02/09/22 01:36 IMPRESSION: Central venous line is seen on the right side its tip is at the mid superior vena cava. Electronically Signed: Sara cMkee MD at 3:13 EDT , KUB X-Ray 02/09/22 09:40 IMPRESSION: Tip of orogastric tube projected over the region of the duodenal bulb. No complications. Electronically Signed: Curry Parra MD at 10:05 EDT , Assessment & Plan Assessment/Plan (1) Choledocholithiasis with acute cholecystitis with obstruction: PLAN: Gram stain from the cholecystostomy fluid did not show any initial organisms. Cultures are pending. His transaminases and total bilirubin are still elevated. No surgical intervention will be planned for this admission.
--- NOTE | 2022-02-09 17:07 | PCM.PN.CARD ---
Subjective Subjective Patient seen and evaluated. Events of yesterday noted Objective Data Vital Signs: Vital Signs Temp Pulse Resp BP Pulse Ox 100.5 F H 80 27 H 100/61 94 02/09/22 16:00 02/09/22 16:00 02/09/22 16:00 02/09/22 16:00 02/09/22 16:00 Oxygen Flow Rate (L/min) [17] 2 Oxygen Flow Rate (L/min) [16] 2 Oxygen Flow Rate (L/min) [15] 2 Oxygen Flow Rate (L/min) [14] 2 Oxygen Flow Rate (L/min) [13] 2 Oxygen Flow Rate (L/min) [12] 2 Oxygen Flow Rate (L/min) [11] 2 Oxygen Flow Rate (L/min) [10] 2 Oxygen Flow Rate (L/min) [9] 2 Oxygen Flow Rate (L/min) [8] 2 Oxygen Flow Rate (L/min) [7] 2 Oxygen Flow Rate (L/min) [6] 2 Oxygen Flow Rate (L/min) [5] 2 Oxygen Flow Rate (L/min) [4] 2 Oxygen Flow Rate (L/min) [3] 2 Oxygen Flow Rate (L/min) [2] 2 Oxygen Flow Rate (L/min) [1 ( 2 Initial Baseline)] Oxygen Flow Rate (L/min) 3 Oxygen Delivery Method [17] Nasal Cannula Oxygen Delivery Method [16] Nasal Cannula Oxygen Delivery Method [15] Nasal Cannula Oxygen Delivery Method [14] Nasal Cannula Oxygen Delivery Method [13] Nasal Cannula Oxygen Delivery Method [12] Nasal Cannula Oxygen Delivery Method [11] Nasal Cannula Oxygen Delivery Method [10] Nasal Cannula Oxygen Delivery Method [9] Nasal Cannula Oxygen Delivery Method [8] Nasal Cannula Oxygen Delivery Method [7] Nasal Cannula Oxygen Delivery Method [6] Nasal Cannula Oxygen Delivery Method [5] Nasal Cannula Oxygen Delivery Method [4] Nasal Cannula Oxygen Delivery Method [3] Nasal Cannula Oxygen Delivery Method [2] Nasal Cannula Oxygen Delivery Method [1 ( Nasal Cannula Initial Baseline)] Oxygen Delivery Method Mechanical Ventilator Weight: 190 lb 7.67 oz Body Mass Index (BMI) 27.1 Intake & Output: Intake and Output for Last 24 Hours 02/07/22 02/08/22 02/09/22 23:59 23:59 23:59 Intake Total 3767.5 / 3767.5 692.25 / 992.25 1630.58 / 1630.58 Output Total 1325 / 1325 1220 / 1290 555 / 555 Balance 2442.5 / 2442.5 -527.75 / -297.75 1075.58 / 1075.58 Lab / Micro Data Result Diagrams: 02/09/22 04:20 02/09/22 04:20 Labs: Laboratory Results - last 24 hr 02/08/22 05:10: Diff Path Review Reviewed 02/08/22 21:03: POC Glucose 235 H 02/09/22 01:10: WBC 15.3 H, RBC 3.94 L, Hgb 10.0 L, Hct 32.7 L, MCV 83.0, MCH 25.4 L, MCHC 30.6 L, RDW Std Deviation 50.6 H, RDW Coeff of Pee 16.5 H, Plt Count 161, MPV 9.9, Immature Gran % (Auto) 2.000 H, Neut % (Auto) 68.1, Lymph % (Auto) 22.4, [place] % (Auto) 6.9, Eos % (Auto) 0.3, Baso % (Auto) 0.3, Absolute Neuts (auto) 10.4 H, Absolute Lymphs (auto) 3.43, Nucleated RBC % 0.2 02/09/22 01:10: Sodium 135 L, Potassium 4.6, Chloride 107, Carbon Dioxide 17.0 L, Anion Gap 11, BUN 39 H, Creatinine 2.64 H, Estim Creat Clear Calc 24.55, Est GFR (MDRD) Af Amer 31 L, Est GFR (MDRD) Non-Af 25 L, BUN/Creatinine Ratio 14.8, Glucose 242 H, Calcium 8.2 L 02/09/22 01:10: Troponin I High Sens 418 H* 02/09/22 02:25: Lactic Acid 3.0 H* 02/09/22 02:25: PT 19.2 H, INR 1.7, APTT 32.0 02/09/22 04:20: WBC 13.6 H, RBC 3.96 L, Hgb 10.1 L, Hct 31.5 L, MCV 79.5 L, MCH 25.5 L, MCHC 32.1, RDW Std Deviation 47.3 H, RDW Coeff of Pee 16.4 H, Plt Count 166, MPV 9.7, Immature Gran % (Auto) 2.000 H, Neut % (Auto) 85.0 H, Lymph % (Auto) 4.8 L, [place] % (Auto) 8.1, Eos % (Auto) 0.0, Baso % (Auto) 0.1, Absolute Neuts (auto) 11.6 H, Absolute Lymphs (auto) 0.66 L, Nucleated RBC % 0 02/09/22 04:20: Sodium 135 L, Potassium 4.7, Chloride 106, Carbon Dioxide 19.0 L, Anion Gap 10, BUN 46 H, Creatinine 2.88 H, Estim Creat Clear Calc 22.50, Est GFR (MDRD) Af Amer 28 L, Est GFR (MDRD) Non-Af 23 L, BUN/Creatinine Ratio 16.0, Glucose 243 H, Calcium 7.6 L, Total Bilirubin 4.20 H, AST 912 H, ALT 437 H, Alkaline Phosphatase 554 H, Total Protein 6.4, Albumin 2.2 L, Globulin 4.2, Albumin/Globulin Ratio 0.5 L 02/09/22 04:20: Troponin I High Sens 532 H* 02/09/22 06:39: POC Glucose 235 H 02/09/22 08:25: Troponin I High Sens 494 H* 02/09/22 10:30: Lactic Acid 1.7 02/09/22 10:40: APTT 111.7 H* 02/09/22 12:20: POC Glucose 258 H 02/09/22 : PT Cancelled, INR Cancelled, APTT Cancelled Micro: Microbiology 02/08/22 11:00 Aspirate - Other Gram Stain - Final 02/09/22 02:10 Sputum, Induced/Lukens Gram Stain - Final 02/07/22 09:55 Blood Culture (Wb) - Right Hand Blood Culture - Preliminary No growth in 48 hours. 02/07/22 10:05 Blood Culture (Wb) - Anticubital Right Blood Culture - Preliminary No growth in 48 hours. ABG Data ABG results: ABG 02/09/22 02:22 Specimen Type ART Sample Site R Radial pH 7.25 L Bicarbonate Actual 18.0 L Total CO2 19 Base Excess -9 L O2 Saturation 69 L O2 % 100 ABG pCO2 40.7 ABG pO2 41 L Mainor Test Positive Respiration Rate 14 O2 Delivery Device ET Tube Vent Mode AC Tidal Volume 450 POC PEEP 5 Cardiology Labs/Tests 02/09/22 01:10: WBC 15.3 H, RBC 3.94 L, Hgb 10.0 L, Hct 32.7 L, MCV 83.0, MCH 25.4 L, MCHC 30.6 L, Plt Count 161, MPV 9.9, Immature Gran % (Auto) 2.000 H, Neut % (Auto) 68.1, Lymph % (Auto) 22.4, [place] % (Auto) 6.9, Eos % (Auto) 0.3, Baso % (Auto) 0.3, Absolute Neuts (auto) 10.4 H, Nucleated RBC % 0.2 02/09/22 01:10: Sodium 135 L, Potassium 4.6, Chloride 107, Carbon Dioxide 17.0 L, Anion Gap 11, BUN 39 H, Creatinine 2.64 H, Est GFR (MDRD) Af Amer 31 L, Est GFR (MDRD) Non-Af 25 L, BUN/Creatinine Ratio 14.8, Glucose 242 H, Calcium 8.2 L 02/09/22 02:22: pH 7.25 L, Bicarbonate Actual 18.0 L, Base Excess -9 L, O2 Saturation 69 L, ABG pCO2 40.7, ABG pO2 41 L, Mainor Test Positive 02/09/22 02:25: Lactic Acid 3.0 H* 02/09/22 02:25: PT 19.2 H, INR 1.7, APTT 32.0 02/09/22 04:20: WBC 13.6 H, RBC 3.96 L, Hgb 10.1 L, Hct 31.5 L, MCV 79.5 L, MCH 25.5 L, MCHC 32.1, Plt Count 166, MPV 9.7, Immature Gran % (Auto) 2.000 H, Neut % (Auto) 85.0 H, Lymph % (Auto) 4.8 L, [place] % (Auto) 8.1, Eos % (Auto) 0.0, Baso % (Auto) 0.1, Absolute Neuts (auto) 11.6 H, Nucleated RBC % 0 02/09/22 04:20: Sodium 135 L, Potassium 4.7, Chloride 106, Carbon Dioxide 19.0 L, Anion Gap 10, BUN 46 H, Creatinine 2.88 H, Est GFR (MDRD) Af Amer 28 L, Est GFR (MDRD) Non-Af 23 L, BUN/Creatinine Ratio 16.0, Glucose 243 H, Calcium 7.6 L, Total Bilirubin 4.20 H 02/09/22 10:30: Lactic Acid 1.7 02/09/22 10:40: APTT 111.7 H* 02/09/22 : PT Cancelled, INR Cancelled, APTT Cancelled Rhythm: EKG: ECHO: Stress Test: Cardiac Cath: PCI: CT Surgery: Holter monitor: EPS: PPM: CXR: Chest CT Scan: Radiography Diagnostic Testing: Radiology Impression Chest X-Ray 02/09/22 01:36 IMPRESSION: Central venous line is seen on the right side its tip is at the mid superior vena cava. Electronically Signed: Sara Mckee MD at 3:13 EDT , KUB X-Ray 02/09/22 09:40 IMPRESSION: Tip of orogastric tube projected over the region of the duodenal bulb. No complications. Electronically Signed: Curry Parra MD at 10:05 EDT , Physical Exam Const General Appearance: intubated HEENT hearing grossly normal bilaterally Head and Scalp: atraumatic Eyes EOMs intact bilaterally Neck General: normal visual inspection Chest inspection of chest normal and palpation of chest normal Resp normal respiratory effort Auscultation: clear to auscultation bilaterally Cardio regular rate, regular rhythm, S1 normal heart sound and S2 normal heart sound Jugular Venous Distention: JVD GI normal to inspection, nondistended, normoactive bowel sounds Extremity normal capillary refill and no pedal edema Peripheral Pulses: Yes pulses 2+ throughout and femoral pulses present Skin no rashes or lesions noted Neuro oriented x3 and CN's II-XII intact bilaterally Psych Appearance: grossly normal and appropriate Assessment & Plan Assessment/Plan (1) Abnormal cardiac enzyme level: PLAN: The patient does have abnormal cardiac enzymes. These appear to be a mildly abnormal in his recent echocardiogram does not demonstrate any changes which are significantly different from prior (2) Atherosclerotic heart disease of [place] coronary artery without angina pectoris: QUALIFIERS: [place] vs. transplanted heart: [place] heart Qualified Code(s): I25.10 - Atherosclerotic heart disease of [place] coronary artery without angina pectoris PLAN: The patient does have a history of underlying CAD. He has previously undergone stress testing which has demonstrated evidence of an extensive infarct but no acute ischemia present. (3) History of coronary artery stent placement: PLAN: The patient underwent devious RCA PCI in 2000 as noted above.At the present time he has been treated medically as an outpatient. He should continue noninvasive valuation care as noted above. (4) Ischemic cardiomyopathy: PLAN: The patient has a history of an underlying ischemic mediated cardiomyopathy. His estimated ejection fraction is around 35% plus minus. He does have evidence of segmental wall motion abnormalities which are not very different from before. His inferior wall demonstrates evidence of previous infarct (5) CHF (congestive heart failure): PLAN: The patient does not appear to have any evidence of acute systolic CHF at this time. (6) History of implantable cardiac defibrillator (ICD): PLAN: The patient does have an ICD in place. It was interrogated this morning and does not show any evidence of VT or VF. No evidence of asystolic was also noted. We will reviewed the telemetry monitoring strips further to really ascertain the above. If the patient truly was asystolic then we may need to consider whether patient lost capture due to ischemia leading to a higher threshold. This will be rather unlikely. Normal DDD pacemaker/defibrillator function was otherwise noted. (7) Cardiopulmonary arrest: PLAN: Patient appears to have suffered a cardiopulmonary arrest. At this particular time the exact etiology is not clear. His echocardiogram demonstrates no significant changes from before and his mild cardiac enzyme elevation does not appear to explain an extensive ischemic event. Will continue with supportive therapy at this particular time and further recommendations will depend on his neurological outcome. In the meantime we will continue with the current medications including pressor agents and sedatives as deemed necessary. There are no plans immediately for any invasive cardiac intervention. Thank you for allowing me to participate in the care of your patient. Please don't hesitate to call if any issues arise.
[2022-02-09 17:41] LABS: Bedside Glucose 226 mg/dL (74-106)
[2022-02-09 20:01] LABS: Partial Thromboplast Time 64.2 Seconds (24.1-36.2)
[2022-02-10] VITALS (17 sets, daily range): BP systolic 102–116; BP diastolic 57–63; PULSE 72–86; RESP 14–23; TEMP 36.8–37.4; O2SAT 95–97
[2022-02-10] MEDS: Hydrocortisone Sod Succinate 100 MG/2 ML Vial 50 MG IV (00:23)
[2022-02-10] MEDS: Insulin Lispro 100 UNIT/ML INSULN.PEN SC (00:32)
[2022-02-10 00:56] LABS: Bedside Glucose 216 mg/dL (74-106)
[2022-02-10 02:20] LABS: Partial Thromboplast Time 52.8 Seconds (24.1-36.2)
[2022-02-10 04:45] LABS: Absolute Lymphocyte Count 0.61 X10^3/uL (0.83-4.51); Basophil# 0.01 X10^3/uL; Basophil% 0.1 % (0-1); Hematocrit 30.7 % (40-54); Hemoglobin 9.8 g/dL (13.0-16.5); Lymphocyte # 0.61 X10^3/ul (0.83-4.51); Lymphocyte % 4.3 % (19-41); Mean Corp Hgb Conc 31.9 g/dL (32-36); Mean Corpuscular Hgb 24.7 pg (27.0-32.0); Mean Corpuscular Volume 77.5 fL (80-94); Mean Platelet Vol. 9.5 fl (6.2-12.0); Monocyte# 0.68 X10^3/uL; Monocyte% 4.7 % (0-10); NRBC Flagged by Analyzer 0 % (0-5); Neutrophil # 12.95 X10^3/uL (2.7-7.7); Neutrophil % 90.3 % (47-70); Platelet Count 154 K/mm3 (150-450); RBC Distribution Width CV 16.4 % (11.6-14.6); RBC Distribution Width SD 46.8 fl (35.1-43.9); Red Blood Count 3.96 M/mm3 (4.6-6.2); White Blood Count 14.3 K/mm3 (4.4-11.0)
[2022-02-10 04:59] LABS: Anion Gap 10 (5-15); BUN 69 mg/dL (7-18); BUN/Creat Ratio 16.5 RATIO (10-20); Calcium,Total 7.7 mg/dL (8.5-10.1); Chloride 109 mmol/L (98-107); Creatinine, Serum 4.17 mg/dL (0.70-1.30); EST Glomerular Filtration Rate 15 mL/min (>60); Est Glom Filt Rate - Afr Amer 18 mL/min (>60); Estimated Creatinine Clearance 15.54 ml/min; Glucose 255 mg/dL (74-106); Potassium 4.5 mmol/L (3.5-5.1); Sodium Level 136 mmol/L (136-145)
--- NOTE | 2022-02-10 07:12 | PN.CC_ITS ---
Assessment & Plan Assessment/Plan (1) Choledocholithiasis with acute cholecystitis with obstruction: (2) Pancreatitis: QUALIFIERS: Chronicity: acute Pancreatitis type: biliary Acute pancreatitis complication: no infection or necrosis Qualified Code(s): K85.10 - Biliary acute pancreatitis without necrosis or infection (3) Ischemic cardiomyopathy: (4) Sepsis: QUALIFIERS: Sepsis type: sepsis due to unspecified organism Sepsis acute organ dysfunction status: without acute organ dysfunction Qualified Code(s): A41.9 - Sepsis, unspecified organism PLAN: RECOMMENDATIONS: 1. Transition to DNR Comfort Care arrest with intubation 2. Narrow medication given goals of therapy 3. Potential hospice consult if does well following extubation 4. Palliative medications when appropriate IMPRESSIONS: 1. Sepsis Clinical suspicion for gallbladder as potential etiology. Patient also has findings consistent with gallstone pancreatitis without pseudocyst formation on CT scan. Patient is not on pressors at this time. Danay tube is in place and appears to be functioning appropriately. Patient came off of pressors quickly. Clinical suspicion for a distributive shock secondary to neurologic status more than recurrence of bacteremia. Patient does not appear to have aspirated during the acute event on follow-up chest x-ray. 2. Acute pancreatitis/cholecystitis secondary to potential gallstone GI and surgery have been consulted. There appears to be some limitation to the ability to be treated with ERCP and surgery. Medical management has been recommended. Danay tube is in place and appears to be functioning appropriately. Did discuss with surgery. We will continue supportive management. 3. Chronic systolic CHF Patient's last known ejection fraction was 37% in August 2021. Patient has received significant fluid resuscitation, but still appears to be compensated at this time. We will need to watch patient closely. Patient with minimal nasal cannula oxygen requirements. Patient will require pressors if becomes hypotensive. Continue to hold antihypertensives given patient's sepsis. 4. Chronic kidney disease stage IIIb Slightly worse. Creatinine is slightly up from his baseline. Patient's blood pressure does appear to be slightly improved with fluid resuscitation. We will continue with conservative measures. Patient with no indication for renal replacement therapy at this time. 5. Diabetes mellitus type 2/history of smoking/advanced age Complicates care, management, recovery and prognosis. DC baseline diabetic meds and cover with sliding scale insulin and potential basal insulin. Patient was confirmed a full CODE STATUS by hospitalist. 6. 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 Interrogation of patient's pacemaker was unremarkable outside of the fact that it did not show asystole. Family is requesting comfort measures at this time understanding that neurologic status is unlikely to improve. Some concern that patient is stable from a hemodynamic standpoint. We will likely consult hospice if patient is able to survive [facility]. Appropriate palliative measures can be ordered when the family is ready. TIME: 33 minutes critical care time spent addressing patient's anoxic encephalop athy, status post arrest, respiratory failure, sepsis, cholecystitis, review of all data and collaboration with care team Subjective Subjective Family stayed overnight with the patient. Patient has improved from a hemodynamic standpoint, but neurologically remains unchanged. Patient continues to have intermittent myoclonic jerking, but is not interacting with family. Patient is no longer requiring Levophed and is on minimal vent settings. Patient did have a fever overnight with no associated hemodynamic instability. Extensive conversation with the family. They would like him to be made a DNR Comfort Care arrest with intubation for now, but plan on gathering family and proceeding to comfort measures later today. Family states that he would never want to live like this. Objective Data Objective Data Interrogation of pacer was completed yesterday, but report is not available. Vital Signs: Vital Signs Temp Pulse Resp BP Pulse Ox 36.8 C 76 21 H 108/62 97 02/10/22 06:00 02/10/22 06:00 02/10/22 06:00 02/10/22 06:00 02/10/22 06:00 Oxygen Flow Rate (L/min) [17] 2 Oxygen Flow Rate (L/min) [16] 2 Oxygen Flow Rate (L/min) [15] 2 Oxygen Flow Rate (L/min) [14] 2 Oxygen Flow Rate (L/min) [13] 2 Oxygen Flow Rate (L/min) [12] 2 Oxygen Flow Rate (L/min) [11] 2 Oxygen Flow Rate (L/min) [10] 2 Oxygen Flow Rate (L/min) [9] 2 Oxygen Flow Rate (L/min) [8] 2 Oxygen Flow Rate (L/min) [7] 2 Oxygen Flow Rate (L/min) [6] 2 Oxygen Flow Rate (L/min) [5] 2 Oxygen Flow Rate (L/min) [4] 2 Oxygen Flow Rate (L/min) [3] 2 Oxygen Flow Rate (L/min) [2] 2 Oxygen Flow Rate (L/min) [1 ( 2 Initial Baseline)] Oxygen Flow Rate (L/min) 21 Oxygen Delivery Method [17] Nasal Cannula Oxygen Delivery Method [16] Nasal Cannula Oxygen Delivery Method [15] Nasal Cannula Oxygen Delivery Method [14] Nasal Cannula Oxygen Delivery Method [13] Nasal Cannula Oxygen Delivery Method [12] Nasal Cannula Oxygen Delivery Method [11] Nasal Cannula Oxygen Delivery Method [10] Nasal Cannula Oxygen Delivery Method [9] Nasal Cannula Oxygen Delivery Method [8] Nasal Cannula Oxygen Delivery Method [7] Nasal Cannula Oxygen Delivery Method [6] Nasal Cannula Oxygen Delivery Method [5] Nasal Cannula Oxygen Delivery Method [4] Nasal Cannula Oxygen Delivery Method [3] Nasal Cannula Oxygen Delivery Method [2] Nasal Cannula Oxygen Delivery Method [1 ( Nasal Cannula Initial Baseline)] Oxygen Delivery Method Mechanical Ventilator Weight: 86.4 kg Body Mass Index (BMI) 27.1 Intake & Output: Intake and Output for Last 24 Hours 02/08/22 02/09/22 02/10/22 23:59 23:59 23:59 Intake Total 692.25 / 992.25 1852.98 / 1862.83 262.80 / 262.80 Output Total 1220 / 1290 1155 / 1435 685 / 685 Balance -527.75 / -297.75 697.98 / 427.83 -422.20 / -422.20 Lab / Micro Data Result Diagrams: 02/10/22 04:35 02/10/22 04:35 Labs: Laboratory Results - last 24 hr 02/08/22 05:10: Diff Path Review Reviewed 02/09/22 08:25: Troponin I High Sens 494 H* 02/09/22 10:30: Lactic Acid 1.7 02/09/22 10:40: APTT 111.7 H* 02/09/22 12:20: POC Glucose 258 H 02/09/22 17:17: POC Glucose 226 H 02/09/22 19:40: APTT 64.2 H 02/10/22 00:31: POC Glucose 216 H 02/10/22 01:45: APTT 52.8 H 02/10/22 04:35: WBC 14.3 H, RBC 3.96 L, Hgb 9.8 L, Hct 30.7 L, MCV 77.5 L, MCH 24.7 L, MCHC 31.9 L, RDW Std Deviation 46.8 H, RDW Coeff of Pee 16.4 H, Plt Count 154, MPV 9.5, Immature Gran % (Auto) 0.600, Neut % (Auto) 90.3 H, Lymph % (Auto) 4.3 L, [place] % (Auto) 4.7, Eos % (Auto) 0.0, Baso % (Auto) 0.1, Absolute Neuts (auto) 13.0 H, Absolute Lymphs (auto) 0.61 L, Nucleated RBC % 0 02/10/22 04:35: Sodium 136, Potassium 4.5, Chloride 109 H, Carbon Dioxide 17.0 L , Anion Gap 10, BUN 69 H, Creatinine 4.17 H, Estim Creat Clear Calc 15.54, Est GFR (MDRD) Af Amer 18 L, Est GFR (MDRD) Non-Af 15 L, BUN/Creatinine Ratio 16.5, Glucose 255 H, Calcium 7.7 L Micro: Microbiology 02/08/22 11:00 Aspirate - Other Gram Stain - Final 02/09/22 02:10 Sputum, Induced/Lukens Gram Stain - Final 02/07/22 09:55 Blood Culture (Wb) - Right Hand Blood Culture - Preliminary No growth in 48 hours. 02/07/22 10:05 Blood Culture (Wb) - Anticubital Right Blood Culture - Preliminary No growth in 48 hours. 02/07/22 09:20 Nasal Secretion SARS-CoV-2 Antigen (Rapid) - Final Radiography Diagnostic Testing: Radiology Impression KUB X-Ray 02/09/22 09:40 IMPRESSION: Tip of orogastric tube projected over the region of the duodenal bulb. No complications. Electronically Signed: Curry Parra MD at 10:05 EDT , Physical Exam Const General Appearance: intubated and patient mechanically ventilated Orientation / Consciousness: comatose HEENT normocephalic, head/scalp atraumatic, hearing grossly normal bilaterally and moist oral mucous membranes HEENT Narrative: No cough or gag reflex noted. Right IJ noted. Eyes conjunctivae normal and no scleral icterus; Negative for PERRL or EOMs intact bilaterally Neck no lymphadenopathy, no JVD and thyroid normal Neck Narrative: No bruising noted at left IJ attempt General: trachea midline Chest Chest Narrative: Left chest defibrillator Resp normal respiratory effort, no retractions, no use of accessory muscles and clear to auscultation bilaterally Resp Narrative: Patient with spontaneous respiration over the ventilator Cardio regular rate, regular rhythm, S1 normal heart sound and S2 normal heart sound GI GI Narrative: Danay tube with dark green to brown fluid Inspection: Negative for abdominal wall ecchymosis or fluid wave present Auscultation: hypoactive bowel sounds Palpation: soft; Negative for ascites Extremity Extremity Narrative: Healing right shoulder wound noted. No fluctuance or surrounding erythema Skin no rashes or lesions noted Neuro Neuro Narrative: Periodic myoclonic jerking noted [place] Coma Scale: document GCS findings None Abnormal Flexion None 5 Sensorium / Orientation: alert Psych affect normal Charges/Coding Procedures Hospitalists Procedures: 00201 Critial Care 1st Hr
--- NOTE | 2022-02-10 08:22 | PCM.PN.CARD ---
Subjective Subjective Patient seen and evaluated. Status quo. Objective Data Vital Signs: Vital Signs Temp Pulse Resp BP Pulse Ox 98.2 F 77 21 H 112/62 97 02/10/22 07:00 02/10/22 07:52 02/10/22 07:00 02/10/22 07:00 02/10/22 07:00 Oxygen Flow Rate (L/min) [17] 2 Oxygen Flow Rate (L/min) [16] 2 Oxygen Flow Rate (L/min) [15] 2 Oxygen Flow Rate (L/min) [14] 2 Oxygen Flow Rate (L/min) [13] 2 Oxygen Flow Rate (L/min) [12] 2 Oxygen Flow Rate (L/min) [11] 2 Oxygen Flow Rate (L/min) [10] 2 Oxygen Flow Rate (L/min) [9] 2 Oxygen Flow Rate (L/min) [8] 2 Oxygen Flow Rate (L/min) [7] 2 Oxygen Flow Rate (L/min) [6] 2 Oxygen Flow Rate (L/min) [5] 2 Oxygen Flow Rate (L/min) [4] 2 Oxygen Flow Rate (L/min) [3] 2 Oxygen Flow Rate (L/min) [2] 2 Oxygen Flow Rate (L/min) [1 ( 2 Initial Baseline)] Oxygen Flow Rate (L/min) 21 Oxygen Delivery Method [17] Nasal Cannula Oxygen Delivery Method [16] Nasal Cannula Oxygen Delivery Method [15] Nasal Cannula Oxygen Delivery Method [14] Nasal Cannula Oxygen Delivery Method [13] Nasal Cannula Oxygen Delivery Method [12] Nasal Cannula Oxygen Delivery Method [11] Nasal Cannula Oxygen Delivery Method [10] Nasal Cannula Oxygen Delivery Method [9] Nasal Cannula Oxygen Delivery Method [8] Nasal Cannula Oxygen Delivery Method [7] Nasal Cannula Oxygen Delivery Method [6] Nasal Cannula Oxygen Delivery Method [5] Nasal Cannula Oxygen Delivery Method [4] Nasal Cannula Oxygen Delivery Method [3] Nasal Cannula Oxygen Delivery Method [2] Nasal Cannula Oxygen Delivery Method [1 ( Nasal Cannula Initial Baseline)] Oxygen Delivery Method Mechanical Ventilator Weight: 190 lb 7.67 oz Body Mass Index (BMI) 27.1 Intake & Output: Intake and Output for Last 24 Hours 02/08/22 02/09/22 02/10/22 23:59 23:59 23:59 Intake Total 692.25 / 992.25 1852.98 / 1862.83 308.55 / 308.55 Output Total 1220 / 1290 1155 / 1435 685 / 685 Balance -527.75 / -297.75 697.98 / 427.83 -376.45 / -376.45 Lab / Micro Data Result Diagrams: 02/10/22 04:35 02/10/22 04:35 Labs: Laboratory Results - last 24 hr 02/08/22 05:10: Diff Path Review Reviewed 02/09/22 08:25: Troponin I High Sens 494 H* 02/09/22 10:30: Lactic Acid 1.7 02/09/22 10:40: APTT 111.7 H* 02/09/22 12:20: POC Glucose 258 H 02/09/22 17:17: POC Glucose 226 H 02/09/22 19:40: APTT 64.2 H 02/10/22 00:31: POC Glucose 216 H 02/10/22 01:45: APTT 52.8 H 02/10/22 04:35: WBC 14.3 H, RBC 3.96 L, Hgb 9.8 L, Hct 30.7 L, MCV 77.5 L, MCH 24.7 L, MCHC 31.9 L, RDW Std Deviation 46.8 H, RDW Coeff of Pee 16.4 H, Plt Count 154, MPV 9.5, Immature Gran % (Auto) 0.600, Neut % (Auto) 90.3 H, Lymph % (Auto) 4.3 L, [place] % (Auto) 4.7, Eos % (Auto) 0.0, Baso % (Auto) 0.1, Absolute Neuts (auto) 13.0 H, Absolute Lymphs (auto) 0.61 L, Nucleated RBC % 0 02/10/22 04:35: Sodium 136, Potassium 4.5, Chloride 109 H, Carbon Dioxide 17.0 L, Anion Gap 10, BUN 69 H, Creatinine 4.17 H, Estim Creat Clear Calc 15.54, Est GFR (MDRD) Af Amer 18 L, Est GFR (MDRD) Non-Af 15 L, BUN/Creatinine Ratio 16.5, Glucose 255 H, Calcium 7.7 L Micro: Microbiology 02/08/22 11:00 Aspirate - Other Gram Stain - Final 02/09/22 02:10 Sputum, Induced/Lukens Gram Stain - Final 02/07/22 09:55 Blood Culture (Wb) - Right Hand Blood Culture - Preliminary No growth in 48 hours. 02/07/22 10:05 Blood Culture (Wb) - Anticubital Right Blood Culture - Preliminary No growth in 48 hours. Cardiology Labs/Tests 02/09/22 10:30: Lactic Acid 1.7 02/09/22 10:40: APTT 111.7 H* 02/09/22 19:40: APTT 64.2 H 02/10/22 01:45: APTT 52.8 H 02/10/22 04:35: WBC 14.3 H, RBC 3.96 L, Hgb 9.8 L, Hct 30.7 L, MCV 77.5 L, MCH 24.7 L, MCHC 31.9 L, Plt Count 154, MPV 9.5, Immature Gran % (Auto) 0.600, Neut % (Auto) 90.3 H, Lymph % (Auto) 4.3 L, [place] % (Auto) 4.7, Eos % (Auto) 0.0, Baso % (Auto) 0.1, Absolute Neuts (auto) 13.0 H, Nucleated RBC % 0 02/10/22 04:35: Sodium 136, Potassium 4.5, Chloride 109 H, Carbon Dioxide 17.0 L, Anion Gap 10, BUN 69 H, Creatinine 4.17 H, Est GFR (MDRD) Af Amer 18 L, Est GFR (MDRD) Non-Af 15 L, BUN/Creatinine Ratio 16.5, Glucose 255 H, Calcium 7.7 L Rhythm: EKG: ECHO: Stress Test: Cardiac Cath: PCI: CT Surgery: Holter monitor: EPS: PPM: CXR: Chest CT Scan: Radiography Diagnostic Testing: Radiology Impression KUB X-Ray 02/09/22 09:40 IMPRESSION: Tip of orogastric tube projected over the region of the duodenal bulb. No complications. Electronically Signed: Curry Parra MD at 10:05 EDT , Physical Exam Const alert, oriented x3 and no apparent distress General Appearance: intubated Orientation / Consciousness: awake HEENT normocephalic, head/scalp atraumatic and hearing grossly normal bilaterally Eyes PERRL, EOMs intact bilaterally and conjunctivae normal Neck full ROM, supple and no JVD General: normal visual inspection Chest inspection of chest normal and palpation of chest normal Resp normal respiratory effort and clear to auscultation bilaterally Auscultation: clear to auscultation bilaterally Cardio regular rate, regular rhythm, S1 normal heart sound and S2 normal heart sound Jugular Venous Distention: JVD GI normal to inspection, nondistended, normoactive bowel sounds GI Narrative: Positive bowel sounds: Tender to palpation Extremity normal capillary refill and no pedal edema Skin no rashes or lesions noted Neuro oriented x3, CN's II-XII intact bilaterally, moves all extremities, no focal motor deficits and no sensory deficits noted Psych mental status grossly normal Appearance: grossly normal and appropriate Assessment & Plan Assessment/Plan (1) Abnormal cardiac enzyme level: PLAN: The patient does have abnormal cardiac enzymes. These appear to be a mildly abnormal in his recent echocardiogram does not demonstrate any changes which are significantly different from prior (2) Atherosclerotic heart disease of [place] coronary artery without angina pectoris: QUALIFIERS: Tribe vs. transplanted heart: [place] heart Qualified Code(s): I25.10 - Atherosclerotic heart disease of [place] coronary artery without angina pectoris PLAN: The patient does have a history of underlying CAD. He has previously undergone stress testing which has demonstrated evidence of an extensive infarct but no acute ischemia present. (3) History of coronary artery stent placement: PLAN: The patient underwent devious RCA PCI in 2000 as noted above.At the present time he has been treated medically as an outpatient. He should continue noninvasive valuation care as noted above. (4) Ischemic cardiomyopathy: PLAN: The patient has a history of an underlying ischemic mediated cardiomyopathy. His estimated ejection fraction is around 35% plus minus. He does have evidence of segmental wall motion abnormalities which are not very different from before. His inferior wall demonstrates evidence of previous infarct (5) CHF (congestive heart failure): PLAN: The patient does not appear to have any evidence of acute systolic CHF at this time. (6) History of implantable cardiac defibrillator (ICD): PLAN: The patient does have an ICD in place. It was interrogated this morning and does not show any evidence of VT or VF. No evidence of asystolic was also noted. We will reviewed the telemetry monitoring strips further to really ascertain the above. If the patient truly was asystolic then we may need to consider whether patient lost capture due to ischemia leading to a higher threshold. This will be rather unlikely. Normal DDD pacemaker/defibrillator function was otherwise noted. (7) Cardiopulmonary arrest: PLAN: Patient appears to have suffered a cardiopulmonary arrest. At this particular time the exact etiology is not clear. It appears most likely that this was pulseless electrical activity. His echocardiogram demonstrates no significant changes from before and his mild cardiac enzyme elevation does not appear to explain an extensive ischemic event. Will continue with supportive therapy at this particular time and further recommendations will depend on his neurological outcome. In the meantime we will continue with the current medications including pressor agents and sedatives as deemed necessary. There are no plans immediately for any invasive cardiac intervention. Had an extensive discussion with patient's , daughter and sister. Thank you for allowing me to participate in the care of your patient. Please don't hesitate to call if any issues arise.
[2022-02-10] MEDS: Chlorhexidine 15 ML PO (08:40)
--- NOTE | 2022-02-10 09:20 | CASEMGMT ---
SW checked in with patient's family. was not present, but patient's daughter and some other family members were. SW introduced self. LISANDRO explained SW just wanted to make sure everyone was doing okay. Patient's daughter said you should come back when my mom is here. SW said that is fine and SW will check back. Bonny Kohler PARATRANSIT OPERATOR KULWINDER
--- NOTE | 2022-02-10 10:21 | CASEMGMT ---
LISANDRO stopped by patient's room again. Patient's along with many other family members were present. LISANDRO introduced self to patient's Kandi. Kandi said they are allowing family to come and see patient. Once everyone has been able to see patient they will withdrawal care. At this time she said she is doing well and has a lot of good support. She also said [facility] staff has been wonderful. Bonny Kohler SR. PAYROLL PROCESSOR KULWINDER
--- NOTE | 2022-02-10 11:32 | PCI.CARDCATH ---
PCI Cardiac Cath Report PCI Report: Procedure: Diagnostic heart cath Clinical history: STEMI Indication: STEMI Heart failure: [] Stress/imaging: [] CAD presentation: Chest pain 12 hours Summary: Drug-eluting stent placed in proximal LAD Procedure Details The risks, benefits, complications, treatment options, and expected outcomes were discussed with the patient. The patient and/or family concurred with the proposed plan, giving informed consent. Patient was brought to the dental lab technician after IV hydration . Patient was further sedated with IV conscious sedation. Subject was prepped and draped in the usual manner. Using the modified Seldinger access technique, a 6 [place] sheath was placed in the []. Standard diagnostic catheters were used. Exchanges were performed over J-wire. At the end of the procedures, all catheters and sheaths were removed and bleeding was stopped with closure device using [] Findings: Left ventriculogram: 35% anterolateral akinesis Moderate Sedation: Conscious sedation was administered under my supervision with cardiorespiratory monitoring performed by independent and qualified nursing personnel. Medications and dosages are recorded separately in the electronic medical record. Hemodynamics: Dominance: Left LVEDP : 22 mm Hg Ejection Fraction : 15 Other pressure measurement : [ ] Comments : [ ] Coronary Anatomy: Left Main : [Normal*] LAD : Normal Diagonals : 2 large diagonals both normal Circumflex : Normal Major Obtuse Marginals : Large second obtuse marginal branch 50% mid Right Coronary Artery : Dominant large 50% mid Valve findings: Aortic stenosis: None Mitral insufficiency: None Estimated Blood Loss: Minimal} Complications: None Disposition condition: Stable
--- NOTE | 2022-02-10 11:54 | PN.HOSP_ITS ---
Subjective Subjective Still unresponsive. Family at bedside. Code changed. Plan for terminal extuabation today. Objective Data Objective Data Vital Signs: Vital Signs Temp Pulse Resp BP Pulse Ox 36.8 C 77 21 H 112/62 97 02/10/22 07:00 02/10/22 07:52 02/10/22 07:00 02/10/22 07:00 02/10/22 07:00 Oxygen Flow Rate (L/min) [17] 2 Oxygen Flow Rate (L/min) [16] 2 Oxygen Flow Rate (L/min) [15] 2 Oxygen Flow Rate (L/min) [14] 2 Oxygen Flow Rate (L/min) [13] 2 Oxygen Flow Rate (L/min) [12] 2 Oxygen Flow Rate (L/min) [11] 2 Oxygen Flow Rate (L/min) [10] 2 Oxygen Flow Rate (L/min) [9] 2 Oxygen Flow Rate (L/min) [8] 2 Oxygen Flow Rate (L/min) [7] 2 Oxygen Flow Rate (L/min) [6] 2 Oxygen Flow Rate (L/min) [5] 2 Oxygen Flow Rate (L/min) [4] 2 Oxygen Flow Rate (L/min) [3] 2 Oxygen Flow Rate (L/min) [2] 2 Oxygen Flow Rate (L/min) [1 ( 2 Initial Baseline)] Oxygen Flow Rate (L/min) 21 Oxygen Delivery Method [17] Nasal Cannula Oxygen Delivery Method [16] Nasal Cannula Oxygen Delivery Method [15] Nasal Cannula Oxygen Delivery Method [14] Nasal Cannula Oxygen Delivery Method [13] Nasal Cannula Oxygen Delivery Method [12] Nasal Cannula Oxygen Delivery Method [11] Nasal Cannula Oxygen Delivery Method [10] Nasal Cannula Oxygen Delivery Method [9] Nasal Cannula Oxygen Delivery Method [8] Nasal Cannula Oxygen Delivery Method [7] Nasal Cannula Oxygen Delivery Method [6] Nasal Cannula Oxygen Delivery Method [5] Nasal Cannula Oxygen Delivery Method [4] Nasal Cannula Oxygen Delivery Method [3] Nasal Cannula Oxygen Delivery Method [2] Nasal Cannula Oxygen Delivery Method [1 ( Nasal Cannula Initial Baseline)] Oxygen Delivery Method Mechanical Ventilator Weight: 86.4 kg Body Mass Index (BMI) 27.1 Intake & Output: Intake and Output for Last 24 Hours 02/08/22 02/09/22 02/10/22 23:59 23:59 23:59 Intake Total 692.25 / 992.25 1852.98 / 1862.83 316.05 / 316.05 Output Total 1220 / 1290 1155 / 1435 685 / 685 Balance -527.75 / -297.75 697.98 / 427.83 -368.95 / -368.95 Lab / Micro Data Result Diagrams: 02/10/22 04:35 02/10/22 04:35 Labs: Laboratory Results - last 24 hr 02/09/22 12:20: POC Glucose 258 H 02/09/22 17:17: POC Glucose 226 H 02/09/22 19:40: APTT 64.2 H 02/10/22 00:31: POC Glucose 216 H 02/10/22 01:45: APTT 52.8 H 02/10/22 04:35: WBC 14.3 H, RBC 3.96 L, Hgb 9.8 L, Hct 30.7 L, MCV 77.5 L, MCH 24.7 L, MCHC 31.9 L, RDW Std Deviation 46.8 H, RDW Coeff of Pee 16.4 H, Plt Count 154, MPV 9.5, Immature Gran % (Auto) 0.600, Neut % (Auto) 90.3 H, Lymph % (Auto) 4.3 L, [place] % (Auto) 4.7, Eos % (Auto) 0.0, Baso % (Auto) 0.1, Absolute Neuts (auto) 13.0 H, Absolute Lymphs (auto) 0.61 L, Nucleated RBC % 0 02/10/22 04:35: Sodium 136, Potassium 4.5, Chloride 109 H, Carbon Dioxide 17.0 L , Anion Gap 10, BUN 69 H, Creatinine 4.17 H, Estim Creat Clear Calc 15.54, Est GFR (MDRD) Af Amer 18 L, Est GFR (MDRD) Non-Af 15 L, BUN/Creatinine Ratio 16.5, Glucose 255 H, Calcium 7.7 L Micro: Microbiology 02/09/22 02:10 Sputum, Induced/Lukens Gram Stain - Final 02/09/22 02:10 Sputum, Induced/Lukens Respiratory Culture - Preliminary Presumptive C albicans 02/09/22 05:50 Urine Catheter - [place] Urine Culture - Preliminary Culture exhibits no growth. 02/08/22 11:00 Aspirate - Other Gram Stain - Final 02/08/22 11:00 Aspirate - Other Wound Culture - Preliminary No growth-Final to follow 02/07/22 09:55 Blood Culture (Wb) - Right Hand Blood Culture - Preliminary No growth in 48 hours. 02/07/22 10:05 Blood Culture (Wb) - Anticubital Right Blood Culture - Preliminary No growth in 48 hours. 02/07/22 09:20 Nasal Secretion SARS-CoV-2 Antigen (Rapid) - Final Physical Exam Const Constitutional Narrative: intubated. unresponsive. Resp normal respiratory effort, no retractions, no use of accessory muscles and clear to auscultation bilaterally Cardio regular rate, regular rhythm, S1 normal heart sound and S2 normal heart sound GI normal to inspection, nondistended, normoactive bowel sounds, soft to palpation, non-tender and non-distended Assessment & Plan Assessment/Plan (1) Choledocholithiasis with acute cholecystitis with obstruction: (2) Sepsis: QUALIFIERS: Sepsis type: sepsis due to unspecified organism Sepsis acute organ dysfunction status: without acute organ dysfunction Qualified Code(s): A41.9 - Sepsis, unspecified organism (3) Pancreatitis: QUALIFIERS: Chronicity: acute Pancreatitis type: biliary Acute pancreatitis complication: no infection or necrosis Qualified Code(s): K85.10 - Biliary acute pancreatitis without necrosis or infection (4) Transaminitis: (5) Cardiopulmonary arrest: (6) Acute respiratory failure with hypoxia: (7) Encephalopathy: PLAN: 1. Cardiopulmonary arrest noted asystole on notes, DW Dr. Parrish, who reviewed his AICD and it appeared he had PEA. 2. acute hypoxic respiratory failure 2/2 cardiopulmonary arrest down to 35% FiO2 3. Encephalopathy ongoing 2/2 above concern for anoxic encephalopathy DW Dr. Love, hold off on head CT for now. 4. Myoclonus concern for anoxic encephalopathy if more frequent, may need to consider AEDs 5. Sepsis Secondary to cholecystitis Now on meropenem and vancomycin Follow up cultures on vasopressors. 6. Shock resolved septic v cardiogenic on vasopressors 7. Acute cholecystitis With choledocholithiasis S/P cholecystostomy tube on 02/08 8. Pancreatitis Secondary to above Supportive management No evidence of necrosis 9. Transaminitis Secondary to above Monitor 10. Chronic heart failure with reduced ejection fraction Compensated this time EF from September 15, 2021 was at 37% Monitor closely with the large quantities of fluid patient is receiving 4 decompensation 11. 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 Diabetes mellitus type 2 SSI 9. VTE prophylaxis with SCDs 10. COVID-19 vaccination status: Patient is vaccinated and boosted 11. CODE STATUS: Addressed with the patient. Patient is full CODE STATUS. 12. Elevated troponins likely demand on heparin gtt DW pt's and other family members. Charges/Coding Visit Charges Inpatient E&M: 75265 Subs Hosp L2
--- NOTE | 2022-02-10 11:54 | CON.PCM.CA_ITS ---
HPI Consult Data Date of Consult: 02/10/22 HPI Narrative HPI Narrative: VASHTI LIMA, is a 76 M who presents [facility] Medical History (Updated 02/09/22 @ 10:[address] Tristin Martin, DO) Abnormal cardiac enzyme level Atherosclerotic heart disease of [place] coronary artery without angina pectoris CHF (congestive heart failure) Ischemic cardiomyopathy Old inferior wall myocardial infarction Pure hypercholesterolemia Sustained ventricular tachycardia (09/2018) Type 2 diabetes mellitus Home Medications carvedilol 25 mg PO BID 09/04/17 [History Last Taken 09/21/17] multivitamin 1 ea PO DAILY 09/04/17 [History Last Taken Unknown] cholecalciferol (vitamin D3) 50 mcg (2,000 unit) capsule 3,000 unit PO QDAY cap 02/15/18 [History Last Taken Unknown] lisinopril 40 mg tablet 40 mg PO QDAY 02/15/18 [History Last Taken Unknown] melatonin 5 mg capsule 10 mg PO QHS ea 02/15/18 [History Last Taken Unknown] gabapentin 400 mg capsule 600 mg PO BID cap 04/04/19 [History Last Taken Unknown] magnesium oxide 420 mg PO DAILY 10/18/19 [History Last Taken Unknown] omeprazole 40 mg PO DAILY 10/18/19 [History Last Taken Unknown] rosuvastatin 40 mg PO QHS 10/18/19 [History Last Taken Unknown] aspirin 81 mg tablet,delayed release 81 mg PO DAILY 10/22/19 [History Last Taken Unknown] empagliflozin 25 mg tablet 25 mg PO DAILY 10/22/19 [History Last Taken Unknown] insulin glargine 100 unit/mL subcutaneous solution 25 unit SC DAILY ml 06/04/20 [History Last Taken Unknown] metformin 500 mg tablet 500 mg PO BID tab 06/04/20 [History Last Taken Unknown] pyridoxine (vitamin B6) 100 mg tablet 100 mg PO DAILY 01/19/22 [History Last Taken Unknown] semaglutide [Ozempic] 0.5 mg SUBCUT QWEEK 02/07/22 [History Last Taken 01/31/22] Allergy/AdvReac Type Severity Reaction Status Date / Time amitriptyline Allergy Unknown Verified 02/07/22 01:50 carisoprodol Allergy Unknown Verified 02/07/22 01:50 ibuprofen [From Advil] Allergy HYPERTENSIO Verified 02/07/22 01:50 N etodolac AdvReac Diarrhea Verified 02/07/22 01:50 furosemide AdvReac DIZZY Verified 02/07/22 01:50 meloxicam [From Mobic] AdvReac Unknown Verified 02/07/22 01:50 topiramate AdvReac Other Verified 02/07/22 01:50 Family History Father , age 75 pancreatic cancer Pancreatic cancer Mother , Age 99. Cardiac pacemaker in situ Sister , age 67 from CVA CVA (cerebral vascular accident) Surgical History History of coronary artery stent placement (03/08/01) History of implantable cardiac defibrillator (ICD) (09/21/17) History of left knee replacement (2013) History of right knee joint replacement (11/2019) Hx of cataract extraction Hx of shoulder replacement Hx of shoulder surgery lumbar nerve ablation (04/2020) S/P herniorrhaphy Social History household members: spouse Smoking Status: Former smoker pack-years: 40 how long ago did patient quit smoking: Quit 09/27/1990, smoked 2 ppd x 20 years alcohol intake: current alcohol intake frequency: a few times a month substance use type: does not use ROS Constitutional Constitutional: Denies chills or headache(s) Eyes Eyes: Denies acute decrease in peripheral vision ENT HEENT: Denies dental pain or foreign body in nose Cardiovascular Cardiovascular: Denies abdominal pain or chest pain with activity Respiratory/Chest Respiratory/Chest: Denies chest congestion or dyspnea on exertion Gastrointestinal Gastrointestinal: Denies diarrhea or heartburn Genitourinary Genitourinary: Denies nocturia or oliguria Musculoskeletal Musculoskeletal: Denies loss of height or muscle cramps Integumentary Integumentary: Denies nail changes or new lesions Neurologic Neurologic: Denies dizziness or focal weakness Psychiatric Psychiatric: Denies confusion or depression Endocrine Endocrinology: Denies cold intolerance or deepening of the voice Hematologic/Lymphatic Hematologic/Lymphatic: Denies systems reviewed and no addt'l complaints, except as documented or lymphadenopathy Allergic/Immunologic Allergic/Immunologic: Denies rhinitis or throat swelling Objective Data Vital Signs: Vital Signs Temp Pulse Resp BP Pulse Ox 98.2 F 77 21 H 112/62 97 02/10/22 07:00 02/10/22 07:52 02/10/22 07:00 02/10/22 07:00 02/10/22 07:00 Oxygen Flow Rate (L/min) [17] 2 Oxygen Flow Rate (L/min) [16] 2 Oxygen Flow Rate (L/min) [15] 2 Oxygen Flow Rate (L/min) [14] 2 Oxygen Flow Rate (L/min) [13] 2 Oxygen Flow Rate (L/min) [12] 2 Oxygen Flow Rate (L/min) [11] 2 Oxygen Flow Rate (L/min) [10] 2 Oxygen Flow Rate (L/min) [9] 2 Oxygen Flow Rate (L/min) [8] 2 Oxygen Flow Rate (L/min) [7] 2 Oxygen Flow Rate (L/min) [6] 2 Oxygen Flow Rate (L/min) [5] 2 Oxygen Flow Rate (L/min) [4] 2 Oxygen Flow Rate (L/min) [3] 2 Oxygen Flow Rate (L/min) [2] 2 Oxygen Flow Rate (L/min) [1 ( 2 Initial Baseline)] Oxygen Flow Rate (L/min) 21 Oxygen Delivery Method [17] Nasal Cannula Oxygen Delivery Method [16] Nasal Cannula Oxygen Delivery Method [15] Nasal Cannula Oxygen Delivery Method [14] Nasal Cannula Oxygen Delivery Method [13] Nasal Cannula Oxygen Delivery Method [12] Nasal Cannula Oxygen Delivery Method [11] Nasal Cannula Oxygen Delivery Method [10] Nasal Cannula Oxygen Delivery Method [9] Nasal Cannula Oxygen Delivery Method [8] Nasal Cannula Oxygen Delivery Method [7] Nasal Cannula Oxygen Delivery Method [6] Nasal Cannula Oxygen Delivery Method [5] Nasal Cannula Oxygen Delivery Method [4] Nasal Cannula Oxygen Delivery Method [3] Nasal Cannula Oxygen Delivery Method [2] Nasal Cannula Oxygen Delivery Method [1 ( Nasal Cannula Initial Baseline)] Oxygen Delivery Method Mechanical Ventilator Weight: 190 lb 7.67 oz Body Mass Index (BMI) 27.1 Intake & Output: Intake and Output for Last 24 Hours 02/08/22 02/09/22 02/10/22 23:59 23:59 23:59 Intake Total 692.25 / 992.25 1852.98 / 1862.83 316.05 / 316.05 Output Total 1220 / 1290 1155 / 1435 685 / 685 Balance -527.75 / -297.75 697.98 / 427.83 -368.95 / -368.95 Lab / Micro Data Result Diagrams: 02/10/22 04:35 02/10/22 04:35 Labs: Laboratory Results - last 24 hr 02/09/22 12:20: POC Glucose 258 H 02/09/22 17:17: POC Glucose 226 H 02/09/22 19:40: APTT 64.2 H 02/10/22 00:31: POC Glucose 216 H 02/10/22 01:45: APTT 52.8 H 02/10/22 04:35: WBC 14.3 H, RBC 3.96 L, Hgb 9.8 L, Hct 30.7 L, MCV 77.5 L, MCH 24.7 L, MCHC 31.9 L, RDW Std Deviation 46.8 H, RDW Coeff of Pee 16.4 H, Plt Count 154, MPV 9.5, Immature Gran % (Auto) 0.600, Neut % (Auto) 90.3 H, Lymph % (Auto) 4.3 L, [place] % (Auto) 4.7, Eos % (Auto) 0.0, Baso % (Auto) 0.1, Absolute Neuts (auto) 13.0 H, Absolute Lymphs (auto) 0.61 L, Nucleated RBC % 0 02/10/22 04:35: Sodium 136, Potassium 4.5, Chloride 109 H, Carbon Dioxide 17.0 L , Anion Gap 10, BUN 69 H, Creatinine 4.17 H, Estim Creat Clear Calc 15.54, Est GFR (MDRD) Af Amer 18 L, Est GFR (MDRD) Non-Af 15 L, BUN/Creatinine Ratio 16.5, Glucose 255 H, Calcium 7.7 L Micro: Microbiology 02/09/22 02:10 Sputum, Induced/[place] Gram Stain - Final 02/09/22 02:10 Sputum, Induced/[place] Respiratory Culture - Preliminary Presumptive C albicans 02/09/22 05:50 Urine Catheter - [place] Urine Culture - Preliminary Culture exhibits no growth. 02/08/22 11:00 Aspirate - Other Gram Stain - Final 02/08/22 11:00 Aspirate - Other Wound Culture - Preliminary No growth-Final to follow 02/07/22 09:55 Blood Culture (Wb) - Right Hand Blood Culture - Preliminary No growth in 48 hours. 02/07/22 10:05 Blood Culture (Wb) - Anticubital Right Blood Culture - Preliminary No growth in 48 hours. Cardiology Labs/Tests 02/09/22 19:40: APTT 64.2 H 02/10/22 01:45: APTT 52.8 H 02/10/22 04:35: WBC 14.3 H, RBC 3.96 L, Hgb 9.8 L, Hct 30.7 L, MCV 77.5 L, MCH 24.7 L, MCHC 31.9 L, Plt Count 154, MPV 9.5, Immature Gran % (Auto) 0.600, Neut % (Auto) 90.3 H, Lymph % (Auto) 4.3 L, [place] % (Auto) 4.7, Eos % (Auto) 0.0, Baso % (Auto) 0.1, Absolute Neuts (auto) 13.0 H, Nucleated RBC % 0 02/10/22 04:35: Sodium 136, Potassium 4.5, Chloride 109 H, Carbon Dioxide 17.0 L , Anion Gap 10, BUN 69 H, Creatinine 4.17 H, Est GFR (MDRD) Af Amer 18 L, Est GFR (MDRD) Non-Af 15 L, BUN/Creatinine Ratio 16.5, Glucose 255 H, Calcium 7.7 L Rhythm: EKG: ECHO: Stress Test: Cardiac Cath: PCI: CT Surgery: Holter monitor: EPS: PPM: CXR: Chest CT Scan:
--- NOTE | 2022-02-10 12:12 | DCINST_ITS ---
Discharge Instructions Follow Up Care Please Follow Up With: Flaco Hooker MD When: 2 weeks Test Results: Test results from this visit will be discussed in further detail at your follow-up appointment, if applicable. Discharge Plan Admission Admit Date/Time: 02/07/22 08:42 Attending Provider: Tristin Martin Primary Care Provider: Krissy Hussein Consulting Providers: Tommie Guevara ; Ryley Ngo ; Bakari Love ; Delgado Schreiber ; Keesha Roca [employer] Discharge Orders/Prescriptions Prescriptions: No Action melatonin 5 mg capsule 10 mg PO QHS RF: 0 lisinopril 40 mg tablet 40 mg PO QDAY RF: 0 cholecalciferol (vitamin D3) 2,000 unit capsule 3,000 unit PO QDAY RF: 0 empagliflozin 25 mg tablet 25 mg PO DAILY RF: 0 aspirin [Adult Low Dose Aspirin] 81 mg tablet,delayed release (DR/EC) 81 mg PO DAILY RF: 0 metformin 500 mg tablet 500 mg PO BID RF: 0 pyridoxine (vitamin B6) 100 mg tablet 100 mg PO DAILY RF: 0 multivitamin 1 EACH tablet 1 ea PO DAILY RF: 0 carvedilol 25 MG tablet 25 mg PO BID RF: 0 gabapentin 400 mg capsule 600 mg PO BID RF: 0 rosuvastatin 40 MG tablet 40 mg PO QHS RF: 0 omeprazole 20 MG capsule 40 mg PO DAILY RF: 0 magnesium oxide 400 MG tablet 420 mg PO DAILY RF: 0 insulin glargine 100 unit/mL solution 25 unit SC DAILY RF: 0 Ozempic 0.25 mg or 0.5 mg(2 mg/1.5 mL) Pen Injector 0.5 mg SUBCUT QWEEK RF: 0 Referrals / Follow Up: Krissy Hussein MD [Primary Care Provider] -
--- NOTE | 2022-02-10 12:13 | CHAPLAIN ---
Type of Pastoral Visit _x__ Initial Visit ___ Follow-up Visit ___ On-call Visit ___ General Patient Visit ___ Spiritual Assessment ___ Family Conference ___ Bereavement ___ Rapid Response ___ Code Blue ___ Other (describe below) Pastoral Care Referral From ___ Patient ___ Family ___ Nurse _x__ Physician ___ Rn Neurology ___ It Applications Manager ___ Other (describe below) Sacrament/Intervention ___ Active listening ___ Anointing ___ Latter Day ___ Bereavement ___ Communion ___ Marielena exploration ___ ___ Life review _x__ Prayer ___ Reconciliation ___ Sacrament of Sick _x__ Supportive presence ___ Wedding ___ Other (describe below) Pastoral Comments Many family members are gathered in the room including spouse, daughter, and siblings; offer of presence and support; spouse and sibling welcome a time for prayer as support; otherwise family state that they have no other needs; will check with family later as withdrawal takes place
[2022-02-10] MEDS: Morphine 2 MG/ML Syringe IV (12:24)
--- NOTE | 2022-02-10 12:45 | NURSING ---
Patients family came to Nurses station and stated that they were ready to extubate patient and change resuscitation status to DNRCC. Dr Love and Dr Martin both notified, Both Dr's came to talk with family prior to extubation. Orders received to change code status and extubate patient. Patient extubated by Rosalee HOLBROOK at 1230 without complication. Family at bedside immediately after extubation, respirations agonal. Patient absent of heart sounds at 1239, verified by Mikki DELAROSA. Dr Tierney, Dr Love Notified
--- NOTE | 2022-02-10 12:52 | PCM.DEATH ---
Preliminary Cause of Preliminary Cause of Preliminary Cause of : Acute cholecystitis Sepsis Date of Admission: 02/07/22 Principle Diagnosis Problem List: Active and Suspected Problems (Updated 02/09/22 @ 10:[address] Tristin Martin DO) Encephalopathy (Acute) Acute respiratory failure with hypoxia (Acute) Cardiopulmonary arrest (Acute) CHF (congestive heart failure) (Acute) Abnormal cardiac enzyme level (Acute) Transaminitis (Acute) Pancreatitis (Acute) Sepsis (Acute) Choledocholithiasis with acute cholecystitis with obstruction (Acute) Hospital Course This was a 76-year-old male presented with a 2-day history of abdominal pain that began on the . He was hypotensive initially and did receive 3 L of IV fluids. Did have an attempt at a triple-lumen catheter was unsuccessful in the emergency room. Did receive Zosyn. A CAT scan of his abdomen was unremarkable but his gallbladder ultrasound showed gallbladder sludge and a distended gallbladder and bladder wall thickening with trace pericholecystic fluid. Patient also known to have pancreatitis and transaminitis. Gastroenterology was contacted and recommended an MRCP but could not be done so because of his AICD. General surgery was consulted as well. Patient initially admitted to the ICU in case he were to decline. Patient actually did better with antibiotics and did have a cholecystotomy tube placed and he did tolerate that well. Patient did have elevated troponins that peaked at 532. 2D echocardiogram showed an EF of 35%. Also noted to have a right ventricular systolic pressure of 45 mmHg. His EF was unchanged from 2018 but his point pressure did go up from 23 mmHg. On the morning of the , patient developed cardiac arrest and CPR was initiated. Patient did have ROSC and was intubated and triple-lumen catheter was placed. Patient was unresponsive and having myoclonus. Case was discussed with the patient's family and they want to monitor the patient over 24 hours to see if there is any recovery. Patient continued to be unresponsive. Decision was made to terminally extubate the patient and the patient was terminally extubated today. Patient at 1239 on February 10, 2022. Cause of is acute cholecystitis, sepsis. Complicating factors: Heart failure with reduced ejection fraction, coronary artery disease Did discuss with the patient's daughter today who is inquiring will be put on the certificate. Informed her that it would be the cholecystitis and sepsis but complicated by the patient's underlying cardiac disease. Visit Charges Inpatient E&M: 67617 Disch Hosp
== END 2022-02-10 13:30 | DRG 871 ==
LOC: ED 08:44 → ICU 14:11 → PCU 02-09 07:03
PROVIDERS: Hospitalist; Internal Medicine Critical Care Medicine; Emergency Provider Emergency Medicine; PCP Internal Medicine
DX: A41.9 Sepsis, unspecified organism (principal); K85.10 Biliary acute pancreatitis without necrosis or infection; J96.01 Acute respiratory failure with hypoxia; R65.21 Severe sepsis with septic shock; K80.42 Calculus of bile duct with acute cholecystitis without obstruction; I50.22 Chronic systolic (congestive) heart failure; N17.9 Acute kidney failure, unspecified; G93.1 Anoxic brain damage, not elsewhere classified; E11.22 Type 2 diabetes mellitus with diabetic chronic kidney disease; I46.9 Cardiac arrest, cause unspecified; Z79.4 Long term (current) use of insulin; N18.32 Chronic kidney disease, stage 3b; G25.3 Myoclonus; I25.10 Atherosclerotic heart disease of native coronary artery without angina pectoris; I25.5 Ischemic cardiomyopathy; I45.10 Unspecified right bundle-branch block; E78.5 Hyperlipidemia, unspecified; I25.2 Old myocardial infarction; Z87.891 Personal history of nicotine dependence; Z95.810 Presence of automatic (implantable) cardiac defibrillator; Z79.899 Other long term (current) drug therapy; Z79.82 Long term (current) use of aspirin; Z53.09 Procedure and treatment not carried out because of other contraindication
CPT/HCPCS: 31500; 31720; 36600; 71045; 73030; 74018; 74177; 75989; 76705; 80048; 80053; 80076; 81001; 82803; 82962; 83605; 83690; 84484; 85025; 85610; 85730; 87040; 87070; 87075; 87086; 87205; 87811; 88108; 88304; 88305; 88313; 92950; 93005; 93306; 94002; 94003; 94640; 94762; 97163; 97166; 97802; 99156; 99157; 99251; 99285; J2185; J7030; J7040; J7050; Q9957; Q9967; A4216; C8929; G0463; J2405; J3010; J3475; J3490